=== PATIENT | female | born 1980 ===

== ENCOUNTER 2017-04-16 20:39 | Inpatient (IN) | payer OTHER ==
[~2017-04-16] VITALS: Ht 175.3 cm; Wt 104.7 kg
[2017-04-17] VITALS (10 sets, daily range): BP systolic 94–156; BP diastolic 68–86; PULSE 97–122; TEMP 36.4–37.1; O2SAT 95–100; BMI 29.6
[2017-04-17] MEDS ORDERED: SODIUM CHLORIDE 0.9% 1000ML 1,000 ML IV SCH (00:37)
[2017-04-17] MEDS ORDERED: INSULIN IV INFUSION PROTOCOL STA (00:37)
[2017-04-17 00:42] LABS: HEMATOCRIT 32.8 % (37-47); HEMOGLOBIN 11.9 g/dL (12.0-16.0); MEAN CELL VOLUME 84.1 fL (80-100); MEAN CORPUSCULAR HEMOGLOBIN 30.5 pg (25-34); MEAN PLATELET VOLUME 9.3 fL (7.4-10.4); PLATELET COUNT 300 K/uL (130-400); RED CELL DISTRIBUTION WIDTH CV 12.9 % (11.5-14.5); RED CELL DISTRIBUTION WIDTH SD 39.3 fL (36.4-46.3)
[2017-04-17] MEDS ORDERED: SEVERE STRESS LEVEL ONE (00:45)
[2017-04-17] MEDS ORDERED: DKA GOAL RANGE 150-250 mg/dl 1 EA ONE (00:45)
[2017-04-17] MEDS ORDERED: DC ALL PREVIOUSLY ORDERED DIABETES MEDS ONE (00:45)
[2017-04-17 00:47] LABS: MEAN CORPUSCULAR HGB CONC 36.3 g/dl (32-36)
[2017-04-17] MEDS ORDERED: MoRPHine SULFATE 2 MG/ML CARP IV PRN (01:00)
[2017-04-17] MEDS ORDERED: ICU PROTOCOL FOR HYPERGLYCEMIA PRN (01:00)
[2017-04-17 01:07] LABS: BLOOD UREA NITROGEN 15 mg/dl (7-18); CALCIUM 9.4 mg/dl (8.5-10.1); CARBON DIOXIDE 20 mmol/L (21-32); CREATININE 0.97 mg/dl (0.60-1.20); GLUCOSE 253 mg/dl (70-99); POTASSIUM 2.7 mmol/L (3.5-5.1); SODIUM 129 mmol/L (136-145)
[2017-04-17] MEDS ORDERED: POTASSIUM CHLR 20 MEQ / WTR 20 MEQ in PREMIXED WATER 100 ML IV STA (01:09)
[2017-04-17] MEDS ORDERED: POTASSIUM CHLORIDE 20 MEQ TABCR PO STA ×2 (01:09→09:47)
[2017-04-17 01:12] LABS: PHOSPHORUS 1.3 mg/dl (2.5-4.9)
[2017-04-17] MEDS ORDERED: POTASSIUM PHOS 3 MMOL/1 ML INFUSION IV STA (01:13)
--- NOTE | 2017-04-17 01:13 | History and Physical ---
History & Physical Date & Time of Service: Apr 17, 2017 at 01:11 Chief Complaint: DKA Primary Care Physician: Devin Tyler History of Present Illness Source: patient The patient is a 36 year old female with a past medical history of diabetes, presents as a direct admit from [place] with DKA. The patient has recently changed endocrinologists to a doctor in [place], and states that her Lantus ran out 2-3 days ago since which time she has not take it, and has solely used Humalog as coverage. She is normally on 30 units of lantus BID with sliding scale coverage. She thinks she was told she has a combination of type 1 and 2 diabetes as she was going to be started on metformin in the near future. She states that she was having progressive nausea and abdominal pain with chills. She denies any fevers, chest pain, shortness of breath, diarrhea, constipation. She also experienced a fall on her right hip. X-ray performed on her hip and femur reveal no acute fractures. Social History Smoking Status: Former Smoker Allergies Coded Allergies: Lisinopril (Verified Allergy, Unknown, hives, 04/17/17) Sulfamethoxazole w/Trimethoprim (Verified Allergy, Unknown, hives, 04/17/17) Home Medications Scheduled Magnesium Oxide (Mag-Ox), 1 TAB PO DAILY Pantoprazole (Protonix), 40 MG PO BID Venlafaxine Hcl (Effexor), 100 MG PO DAILY Scheduled PRN Albuterol Hfa (Ventolin Hfa), 2-4 PUFFS INH Q6H PRN for Shortness of Breath Alprazolam (Xanax), 0.5 MG PO HS PRN for Anxiety Alprazolam (Xanax), 0.25 MG PO DAILY PRN for Anxiety Cyclobenzaprine Hcl (Flexeril), 10 MG PO TID PRN for Muscle Spasms Prochlorperazine Maleate (Compazine), 10 MG PO BID PRN for Nausea or Vomiting Review of Systems Constitutional: + chills, + weakness, + fatigue, No fever, No sweats, No weight loss Respiratory: No cough, No sputum, No shortness of breath Cardiovascular: No chest pain, No palpitations Abdomen: + pain, + nausea, No vomiting, No diarrhea, No constipation Musculoskeletal: + problem reported (right hip pain) Genitourinary - Female: + urinary frequency, No dysuria Endocrine: + fatigue, + excessive thirst, + excessive urination Physical Exam Vital Signs Date Time Temp Pulse Resp B/P (MAP) Pulse Ox O2 Delivery O2 Flow Rate FiO2 04/17/17 00:05 36.6 112 18 94/68 100 Room Air General Appearance: WD/WN, no apparent distress Head: normocephalic, atraumatic Eyes: normal inspection, sclerae normal Neck: supple, no carotid bruits Respiratory/Chest: chest non-tender, lungs clear, normal breath sounds Cardiovascular: no JVD, no murmur, + tachycardia Abdomen/GI: normal bowel sounds, non tender, soft Extremities/Musculoskelatal: no calf tenderness, no pedal edema, + pertinent finding (Tenderness over right hip to palpation) Neurologic/Psych: alert, normal mood/affect, oriented x 3 Diagnostics Laboratory Results Results Past 24 Hours Test 04/17/17 00:29 04/17/17 00:33 Range/Units Venous Blood pH 7.36 7.36-7.41 Venous Blood Partial Pressure CO2 35 38.0-50.0 mmHg Venous Blood Partial Pressure O2 25 mmHg Venous Blood HCO3 19 mmol/L Venous Blood Oxygen Saturation < 60.0 % Venous Blood Base Excess -5.9 mEq/L White Blood Count 19.90 4.8-10.8 K/uL Red Blood Count 3.90 4.2-5.4 M/uL Hemoglobin 11.9 12.0-16.0 g/dL Hematocrit 32.8 37-47 % Mean Corpuscular Volume 84.1 80-100 fL Mean Corpuscular Hemoglobin 30.5 25-34 pg Mean Corpuscular Hemoglobin Concent 36.3 32-36 g/dl RDW Standard Deviation 39.3 36.4-46.3 fL RDW Coefficient of Variation 12.9 11.5-14.5 % Platelet Count 300 130-400 K/uL Mean Platelet Volume 9.3 7.4-10.4 fL Sodium Level 129 136-145 mmol/L Potassium Level 2.7 3.5-5.1 mmol/L Chloride Level 100 98-107 mmol/L Carbon Dioxide Level 20 21-32 mmol/L Anion Gap 9.0 3-11 mmol/L Blood Urea Nitrogen 15 7-18 mg/dl Creatinine 0.97 0.60-1.20 mg/dl Estimated GFR () 87.7 Estimated GFR (Non- 75.7 BUN/Creatinine Ratio 15.7 10-20 Random Glucose 253 70-99 mg/dl Calcium Level 9.4 8.5-10.1 mg/dl Magnesium Level 1.7 1.8-2.4 mg/dl Human Chorionic Gonadotropin, Qual NEG NEG Microbiology Results 04/17/17 MRSA DNA Surveillance Screen, Received Pending Impression Assessment and Plan Patient is a 36 year old female with a past medical history of Diabetes and Fibromyalgia that presents with DKA after not taking her Lantus for the last 2- 3 days 1) Diabetic Ketoacidosis - NS 125mls/hr - Insulin drip continued form [place], currently 12.6 mls/hr (initially 10 mls/hr on transfer) - At this time Anion Gap is closed (9) but still requiring increasing amounts of insulin and sugars still uncontrolled so continue the drip at this time - HbA1c pending - Beta-Hydroxybutyric Acid 20.70 2) Hypokalemia - K+ 2.7 - 20 mEq KCl IV - 30mmol KPhos 3) Hypophosphatemia - Phos 1.3 - KPhos 30 mmol 4) Hypomagnesemia - Mg 1.7 - 1gm Magnesium IV 5) Right Hip Pain - Xrays from [place] show no acute fractures - Toradol 15mg IV q6h 6) GERD - Protonix 40mg PO BID 7) DVT Ppx - Heparin 5,000 units q8h 8) Code Status - Full Resuscitation Resident Physician Supervision Note: Pt evaluated independently. I discussed the case with the resident and agree with the findings and plan as documented in the note. Any exceptions or clarifications are listed here: 36 y/o F Hx DM 1 - has not complied with insulin in 3 days - developed abdominal pain and nausea - initially evaluated at [place] - diagnosed with DKA and transferred for additional management. Her gap had essentially closed on arrival to [facility]. OE AAO x 3 S1,2 R CTAB NT, ND No CCE P: Admitted with DKA protocol HypoK, HypoMg, Hypophos - replaced - electrolytes will be trended Q4 Documented By: Daniel Rolle Level of Care Telemetry Advanced Directives Existing Living Will: No Existing Power of Distiller: No Resuscitation Status FULL RESUSCITATION VTE Prophylaxis VTE Risk Assessment Done? Y/N: Yes Risk Level: Low Given or contraindicated: Unfractionated heparin SQ Resident Tracking Resident Involvement: Resident Care Provided Care Provided: Adult Hospital Medicine
[2017-04-17] MEDS ORDERED: PATIENT'S ALLERGY INFO NEEDS ENTERED SCH (01:15)
[2017-04-17] MEDS ORDERED: PROC1TAB5 PO (01:25)
[2017-04-17] MEDS ORDERED: VNTHFA/IN INH (01:25)
[2017-04-17] MEDS ORDERED: PANT40TA PO (01:25)
[2017-04-17] MEDS ORDERED: MAGN400T5 PO (01:25)
[2017-04-17] MEDS ORDERED: EFF75 PO (01:25)
[2017-04-17] MEDS ORDERED: ALPR-411 PO ×2 (01:25)
[2017-04-17] MEDS ORDERED: CYCL10TA6 PO (01:25)
[2017-04-17] MEDS ORDERED: INSULIN REGULAR 250 UNITS in SODIUM CHLORIDE 0.9% 250ML 250 ML IV SCH (01:30)
[2017-04-17] MEDS ORDERED: GLUCOSE 40% GEL 15 GM TUBE PO PRN (01:30)
[2017-04-17] MEDS ORDERED: GLUCAGON FOR INJ 1 MG VIAL SQ PRN (01:30)
[2017-04-17] MEDS ORDERED: POTASSIUM PHOSPHATE INJ 30 MMOL in SODIUM CHLORIDE 0.9% 500ML 500 ML IV ONE (01:30)
[2017-04-17] MEDS ORDERED: GLUCOSE 10 TABS/TUBE PO PRN (01:30)
[2017-04-17] MEDS ORDERED: DEXTROSE 50% 50 ML SYR IV PRN (01:30)
[2017-04-17] MEDS: MAGNESIUM SULFATE 1GM / D5W 1 GM in PREMIXED IN D5W 100 ML IV SCH ×2 (01:42→02:53)
[2017-04-17 04:31] LABS: CALCIUM 8.9 mg/dl (8.5-10.1); CREATININE 0.86 mg/dl (0.60-1.20); PHOSPHORUS 1.9 mg/dl (2.5-4.9)
[2017-04-17] MEDS: KETOROLAC TROMETHAMINE 15 MG/ML VIAL IV PRN ×2 (04:57→10:09)
--- NOTE | 2017-04-17 05:09 | Critical Care Consultation ---
Critical Care Consultation Date of Consultation: Apr 17, 2017. Attending Physician: Dr. Daniel Rolle Reason for Consultation: DKA History of Present Illness Elba Isaac is a 36 yo female who presented to [facility] after several days of abd pain, nausea and chills after not taking her routine Lantus because she was out. She had attempted to supplement the shortage with Humalin 500 alone. Her daily regimen consists of 30u BID of Lantus an SSI. She states she has recently changed endocrinologists to a provider in [place]. They are planning to add Metformin as she may be a type1/type 2 diabetic. Her initial glucose was 639, anion gap of 19.4, ABG pH of 7.37. Dr. Morales received a phone call regarding pt and she was accepted for transfer to the ICU. Upon arrival in the ICU, pt was noted to be have a glucose of 253 on 10.5u of Insulin per hour. DKA protocol was ordered and pt was initially admitted to ICU pending repeat labs. Labs resulted with sodium 129, K 2.7, Phos 1.3, Mg 1.7 , and Beta hydroxybutyric Acid 20.79. Pt was ordered oral and IV electrolyte replacements. Pt was transferred to telemetry status. Venous blood gas was 7.36 with CO2 35. Pt states she was admitted in [place] recently for same diagnosis. Pt does have a significant medical history including GERD, Anxiety, Depression, DM, fatty liver, fibromyalgia, HTN, hypothyroidism, and neuropathy. The patient denies weight loss, fever, dizziness, headache, muscle weakness, change in vision, sore throat, chest pain, palpitations, awareness of tachyarrhythmias, leg swelling, shortness of breath, cough, nausea, vomiting, bloody stools, diarrhea, constipation, other changes in urine or bowel habits. She states her abd pain is a 6/10 and same for hip, she states 7/10 is a level at which she would say her pain is unbearable. Past Medical/Surgical History Medical Problems: DKA, type 2 Abdominal pain Acid reflux Anxiety Depression Diabetes mellitus type 2 Fatty liver Fibromyalgia Hypertension Hypothyroidism Neuropathy Pneumonia Surgical history: EGD Family History Grandparents: DM & HTN CAD: Mother and Grandparents Dyslipidemia: Mother and Grandparents Social History Smoking Status: Former Smoker (Quit during last hospitalization) Alcohol Use: no longer drinks, x 2 yrs Housing Status: lives with family Occupation Status: disabled Allergies Coded Allergies: Lisinopril (Verified Allergy, Unknown, hives, 04/17/17) Sulfamethoxazole w/Trimethoprim (Verified Allergy, Unknown, hives, 04/17/17) Home Medications Scheduled Magnesium Oxide (Mag-Ox), 1 TAB PO DAILY Pantoprazole (Protonix), 40 MG PO BID Venlafaxine Hcl (Effexor), 100 MG PO DAILY Scheduled PRN Albuterol Hfa (Ventolin Hfa), 2-4 PUFFS INH Q6H PRN for Shortness of Breath Alprazolam (Xanax), 0.5 MG PO HS PRN for Anxiety Alprazolam (Xanax), 0.25 MG PO DAILY PRN for Anxiety Cyclobenzaprine Hcl (Flexeril), 10 MG PO TID PRN for Muscle Spasms Prochlorperazine Maleate (Compazine), 10 MG PO BID PRN for Nausea or Vomiting Current Inpatient Medications Current Inpatient Medications Medications (Trade) Dose Ordered Sig/Tosha Route Start Time Stop Time Status Last Admin Dose Admin Insulin Aspart (novoLOG ASPART) SLIDING SCALE PCHS SC 04/17/17 08:00 05/17/17 07:59 Sodium Chloride 1,000 ml @ 125 mls/hr Q8H IV 04/17/17 00:37 05/17/17 00:36 04/17/17 01:45 125 MLS/HR Acetaminophen (Tylenol Tab) 650 mg Q4H PRN PO 04/17/17 01:00 05/17/17 00:59 Miscellaneous Information (Icu Protocol For Hyperglycemia) 1 ea PRN PRN N/A 04/17/17 01:00 04/19/17 00:59 Potassium Phosphate 30 mmol/ Sodium Chloride 510 ml @ 100 mls/hr ONE ONCE IV 04/17/17 01:30 04/17/17 06:35 04/17/17 01:57 100 MLS/HR Insulin Human Regular 250 units/ Sodium Chloride 252.5 ml @ 0 mls/hr Q24H IV 04/17/17 01:30 05/17/17 01:29 04/17/17 01:44 12.6 MLS/HR Glucose (Glucose 40% Gel) UD PRN PO 04/17/17 01:30 05/17/17 01:29 Glucose (Glucose Chew Tab) 1 tabs UD PRN PO 04/17/17 01:30 05/17/17 01:29 Dextrose (Dextrose 50% 50ML Syringe) 50 ml UD PRN IV 04/17/17 01:30 05/17/17 01:29 Glucagon (Glucagon Inj) 1 mg UD PRN SQ 04/17/17 01:30 05/17/17 01:29 Heparin Sodium (Porcine) (Heparin Sq 5000 Unit/0.5ml) 5,000 unit Q8 SQ 04/17/17 06:00 05/17/17 05:59 UNV Ketorolac Tromethamine (Toradol Inj) 15 mg Q6H PRN IV 04/17/17 02:45 04/22/17 02:44 Pantoprazole Sodium (Protonix Tab) 40 mg BID PO 04/17/17 09:00 05/17/17 08:59 UNV Venlafaxine HCl (effeXOR TAB) 100 mg DAILY PO 04/17/17 09:00 05/17/17 08:59 UNV Review of Systems 12 systems reviewed and negative other than previously mentioned in the HPI. Physical Exam Date Time Temp Pulse Resp B/P (MAP) Pulse Ox O2 Delivery O2 Flow Rate FiO2 04/17/17 02:00 110 20 139/77 (97) 100 Room Air 04/17/17 00:05 36.6 112 18 94/68 100 Room Air Vital Signs - as noted Laboratory Data - as noted Physical Exam: General - NAD Eyes - PERRL, EOMI No icterus, gaze conjugate ENT - Mucosa moist, no lesions or candidiasis Neck - Supple, trachea midline, no masses or lymphadenopathy, no JVD or bruits Lungs - No paradoxical chest wall movement, clear to auscultation bilaterally, no wheezes, rales, or rhonchi Heart - Sinus Tachycardia on monitor, No murmur, rubs, clicks, or gallops appreciated Abdomen - normoactive BS present, no bruits noted, tympanic to percussion, soft , nontender, nondistended, no organomegaly Extremities - No edema, pedal pulses intact, reproducible R Hip pain on palpation Neuro - AxO X 4 Strength extremities equal and appropriate bilaterally Reflexes: normal and equal CN:PERRL, EOMI, no facial asymmetry, uvula/tongue midline Laboratory Results Last 24 Hours Test 04/17/17 00:29 04/17/17 00:33 04/17/17 01:06 04/17/17 02:14 Venous Blood pH 7.36 Venous Blood Partial Pressure CO2 35 mmHg Venous Blood Partial Pressure O2 25 mmHg Venous Blood HCO3 19 mmol/L Venous Blood Oxygen Saturation < 60.0 % Venous Blood Base Excess -5.9 mEq/L White Blood Count 19.90 K/uL Red Blood Count 3.90 M/uL Hemoglobin 11.9 g/dL Hematocrit 32.8 % Mean Corpuscular Volume 84.1 fL Mean Corpuscular Hemoglobin 30.5 pg Mean Corpuscular Hemoglobin Concent 36.3 g/dl RDW Standard Deviation 39.3 fL RDW Coefficient of Variation 12.9 % Platelet Count 300 K/uL Mean Platelet Volume 9.3 fL Sodium Level 129 mmol/L Potassium Level 2.7 mmol/L Chloride Level 100 mmol/L Carbon Dioxide Level 20 mmol/L Anion Gap 9.0 mmol/L Blood Urea Nitrogen 15 mg/dl Creatinine 0.97 mg/dl Estimated GFR () 87.7 Estimated GFR (Non- 75.7 BUN/Creatinine Ratio 15.7 Random Glucose 253 mg/dl Calcium Level 9.4 mg/dl Phosphorus Level 1.3 mg/dl Magnesium Level 1.7 mg/dl Beta-Hydroxybutyric Acid 20.79 mg/dL Human Chorionic Gonadotropin, Qual NEG Bedside Glucose 293 mg/dl 260 mg/dl Test 04/17/17 03:07 04/17/17 04:00 04/17/17 04:01 Bedside Glucose 231 mg/dl 200 mg/dl Venous Blood pH 7.40 Sodium Level 130 mmol/L Potassium Level 3.0 mmol/L Chloride Level 102 mmol/L Carbon Dioxide Level 18 mmol/L Anion Gap 10.0 mmol/L Blood Urea Nitrogen 13 mg/dl Creatinine 0.86 mg/dl Est Creatinine Clear Calc Drug Dose 109.6 ml/min Estimated GFR () 101.4 Estimated GFR (Non- 87.5 BUN/Creatinine Ratio 15.0 Random Glucose 191 mg/dl Calcium Level 8.9 mg/dl Phosphorus Level 1.9 mg/dl Magnesium Level 2.2 mg/dl Diagnostic Results Imaging done at [facility] of Right hip did not demonstrate bony abnormality Assessment & Plan PLAN: DKA: * Continue fluid judiciously per protocol, NSS @ 125mL/hr now * Trend VBG, PRP, Electrolytes per DKA protocol * Insulin Drip continued at 10.5 at time of admission, increased to 12.6 * Anion Gap closed * A1C ordered/pending * Sports Marketer to be consulted Electrolyte Imbalances: * Hypokalemia/hypophosphatemia * KPhos 30mmol IV ordered * 20meq of KCl PO ordered * Repeat labs q 4h * Hypomagnesemia * 2g IV Mg ordered * Repeat lab q4h Right Hip Pain: * Per [facility] records, no notable frax of R hip * Pain management per hospital team Acid Reflux: * Protonix 40mg PO BID DVT Prophylaxis in place: Heparin 5,000u TID CCT: 0 Minutes; Level 5 inpatient billing. This time is exclusive of all separately billable procedures. Thank you for involving us in the care of this patient. Please refer to Dr. Matias Morales's addendum for further recommendations. I have personally evaluated and examined this patient. I agree with assessment and plan of Ollie Gilman PA-C. Discussed patient with provider from [facility]. Patient was in DKA requiring insulin infusion, they were unable to admit the patient at their facility transferred here for further medical management. No obvious source of infection noted at this time, most likely cause of DKA's noncompliance with her newly prescribed insulin regimen. Per [facility] report patient has a long- standing history of noncompliance with her diabetic medication, and reported multiple visits for DKA in the past. Per report patient likely had moderate DKA at [facility], bicarbonate is reported to be 10. Upon her arrival here the patient has very mild DKA, her pH is not acidotic her bicarbonate level is increasing in the patient's anion gap is effectively closed. It is noted that she is hypokalemic this is secondary to insulin administration and we have begun aggressive potassium repletion. Patient is currently a candidate for transition to subcutaneous insulin as well as downgrade out of the ICU.
[2017-04-17 06:25] LABS: HEMOGLOBIN A1C 9.1 % (4.5-5.6)
[2017-04-17] MEDS ORDERED: DC IV INSULIN INFUSION ONE (07:45)
[2017-04-17] MEDS: INSULIN ASPART 100 UNITS/ML 3 ML PEN SC SCH ×2 (08:00→12:34)
[2017-04-17] MEDS: ACETAMINOPHEN 325 MG TAB PO PRN ×2 (08:08→23:50)
[2017-04-17 08:43] LABS: INR 0.9 (0.9-1.1)
[2017-04-17] MEDS ORDERED: INSULIN GLARGINE SOLOSTAR 100 UNITS/ML 3 ML PEN SC SCH (09:00)
--- NOTE | 2017-04-17 09:06 | Family Medicine Progress Note ---
Progress Note Date of Service Apr 17, 2017. Subjective Pt evaluation today including: conversation w/ patient, physical exam, chart review, lab review, review of studies, review of inpatient medication list Pain: pain at Rt hip PO Intake: npo Voiding: no voiding problems No acute events. patient remains on insulin drip with plan to transition to Insulin SS today. She denies fevers/chills, abdominal pain, N/V. She does report rt hip pain which persists from Fall prior to arrival Constitutional: No fever, No chills, No weakness Respiratory: No cough, No wheezing, No shortness of breath Cardiovascular: No chest pain, No edema, No palpitations Abdomen: No pain, No nausea, No vomiting, No diarrhea, No constipation Musculoskeletal: No swelling, No calf pain Skin: No rash, No itch Medications Current Inpatient Medications Medications (Trade) Dose Ordered Sig/Tosha Route Start Time Stop Time Status Last Admin Dose Admin Acetaminophen (Tylenol Tab) 650 mg Q4H PRN PO 04/17/17 01:00 05/17/17 00:59 04/17/17 08:08 650 MG Miscellaneous Information (Icu Protocol For Hyperglycemia) 1 ea PRN PRN N/A 04/17/17 01:00 04/19/17 00:59 Glucose (Glucose 40% Gel) UD PRN PO 04/17/17 01:30 05/17/17 01:29 Glucose (Glucose Chew Tab) 1 tabs UD PRN PO 04/17/17 01:30 05/17/17 01:29 Dextrose (Dextrose 50% 50ML Syringe) 50 ml UD PRN IV 04/17/17 01:30 05/17/17 01:29 Glucagon (Glucagon Inj) 1 mg UD PRN SQ 04/17/17 01:30 05/17/17 01:29 Heparin Sodium (Porcine) (Heparin Sq 5000 Unit/0.5ml) 5,000 unit Q8 SQ 04/17/17 12:00 05/17/17 11:59 Ketorolac Tromethamine (Toradol Inj) 15 mg Q6H PRN IV 04/17/17 02:45 04/22/17 02:44 04/17/17 10:09 15 MG Pantoprazole Sodium (Protonix Tab) 40 mg BID PO 04/17/17 09:00 05/17/17 08:59 04/17/17 09:22 40 MG Venlafaxine HCl (effeXOR TAB) 100 mg DAILY PO 04/17/17 09:00 05/17/17 08:59 04/17/17 09:22 100 MG Insulin Glargine (Lantus Solostar Pen) 30 units BID SC 04/17/17 09:00 05/17/17 08:59 04/17/17 09:14 30 UNITS Insulin Aspart (novoLOG ASPART) SLIDING SCALE G... ACHS SC 04/17/17 11:00 05/17/17 10:59 Potassium Chloride (Klor-Con Tab) 20 meq BID PO 04/17/17 21:00 05/17/17 20:59 Potassium Chloride/Sodium Chloride 1,000 ml @ 125 mls/hr Q8H IV 04/17/17 10:30 05/17/17 10:29 Objective Vital Signs Date Time Temp Pulse Resp B/P (MAP) Pulse Ox O2 Delivery O2 Flow Rate FiO2 04/17/17 06:00 112 20 100 Room Air 04/17/17 04:00 100 Room Air 04/17/17 04:00 37.1 104 14 115/79 (91) 100 Room Air 04/17/17 02:00 110 20 139/77 (97) 100 Room Air 04/17/17 00:05 36.6 112 18 94/68 100 Room Air Physical Exam General Appearance: WD/WN, no apparent distress Eyes: PERRL, EOMI Neck: supple, no adenopathy, trachea midline Respiratory/Chest: lungs clear, normal breath sounds, no respiratory distress Cardiovascular: regular rate, rhythm, no edema, no murmur Abdomen: normal bowel sounds, non tender, soft Extremities: no pedal edema, no calf tenderness, + pertinent finding (Rt hip tenderness to palpation, no local ecchymoses) Neurologic/Psychiatric: alert, normal mood/affect Laboratory Results Results Past 24 Hours Test 04/17/17 00:29 04/17/17 00:33 04/17/17 01:06 04/17/17 02:14 Range/Units Venous Blood pH 7.36 7.36-7.41 Venous Blood Partial Pressure CO2 35 38.0-50.0 mmHg Venous Blood Partial Pressure O2 25 mmHg Venous Blood HCO3 19 mmol/L Venous Blood Oxygen Saturation < 60.0 % Venous Blood Base Excess -5.9 mEq/L White Blood Count 19.90 4.8-10.8 K/uL Red Blood Count 3.90 4.2-5.4 M/uL Hemoglobin 11.9 12.0-16.0 g/dL Hematocrit 32.8 37-47 % Mean Corpuscular Volume 84.1 80-100 fL Mean Corpuscular Hemoglobin 30.5 25-34 pg Mean Corpuscular Hemoglobin Concent 36.3 32-36 g/dl RDW Standard Deviation 39.3 36.4-46.3 fL RDW Coefficient of Variation 12.9 11.5-14.5 % Platelet Count 300 130-400 K/uL Mean Platelet Volume 9.3 7.4-10.4 fL Sodium Level 129 136-145 mmol/L Potassium Level 2.7 3.5-5.1 mmol/L Chloride Level 100 98-107 mmol/L Carbon Dioxide Level 20 21-32 mmol/L Anion Gap 9.0 3-11 mmol/L Blood Urea Nitrogen 15 7-18 mg/dl Creatinine 0.97 0.60-1.20 mg/dl Estimated GFR () 87.7 Estimated GFR (Non- 75.7 BUN/Creatinine Ratio 15.7 10-20 Random Glucose 253 70-99 mg/dl Estimated Average Glucose 214 mg/dl Hemoglobin A1c 9.1 4.5-5.6 % Calcium Level 9.4 8.5-10.1 mg/dl Phosphorus Level 1.3 2.5-4.9 mg/dl Magnesium Level 1.7 1.8-2.4 mg/dl Beta-Hydroxybutyric Acid 20.79 0.2-2.81 mg/dL Human Chorionic Gonadotropin, Qual NEG NEG Bedside Glucose 293 260 70-90 mg/dl Test 04/17/17 03:07 04/17/17 04:00 04/17/17 04:01 04/17/17 05:01 Range/Units Bedside Glucose 231 200 112 70-90 mg/dl Venous Blood pH 7.40 7.36-7.41 Sodium Level 130 136-145 mmol/L Potassium Level 3.0 3.5-5.1 mmol/L Chloride Level 102 98-107 mmol/L Carbon Dioxide Level 18 21-32 mmol/L Anion Gap 10.0 3-11 mmol/L Blood Urea Nitrogen 13 7-18 mg/dl Creatinine 0.86 0.60-1.20 mg/dl Est Creatinine Clear Calc Drug Dose 109.6 ml/min Estimated GFR () 101.4 Estimated GFR (Non- 87.5 BUN/Creatinine Ratio 15.0 10-20 Random Glucose 191 70-99 mg/dl Calcium Level 8.9 8.5-10.1 mg/dl Phosphorus Level 1.9 2.5-4.9 mg/dl Magnesium Level 2.2 1.8-2.4 mg/dl Test 04/17/17 05:53 04/17/17 07:11 04/17/17 07:58 04/17/17 08:25 Range/Units Bedside Glucose 169 169 127 70-90 mg/dl Prothrombin Time 9.6 9.0-12.0 SECONDS Prothromb Time International Ratio 0.9 0.9-1.1 Venous Blood pH 7.37 7.36-7.41 Sodium Level 132 136-145 mmol/L Potassium Level 3.1 3.5-5.1 mmol/L Chloride Level 103 98-107 mmol/L Carbon Dioxide Level 20 21-32 mmol/L Anion Gap 9.0 3-11 mmol/L Blood Urea Nitrogen 12 7-18 mg/dl Creatinine 0.81 0.60-1.20 mg/dl Est Creatinine Clear Calc Drug Dose 116.4 ml/min Estimated GFR () 109.1 Estimated GFR (Non- 94.1 BUN/Creatinine Ratio 14.3 10-20 Random Glucose 113 70-99 mg/dl Calcium Level 9.0 8.5-10.1 mg/dl Phosphorus Level 2.1 2.5-4.9 mg/dl Magnesium Level 1.8 1.8-2.4 mg/dl Chemistry Specimen Hemolysis Test 04/17/17 08:30 Range/Units Bedside Glucose 128 70-90 mg/dl Microbiology Results 04/17/17 MRSA DNA Surveillance Screen - Final, Complete Specimen Negative for MRSA by DNA Probe Assessment and Plan 36 yo F w/ h/o Diabetes , Fibromyalgia presenting in DKA secondary to lack of insulin administration for 2-3 days prior to arrival, Anion gap closed, Glucose significantly improved DKA: secondary to lack of insulin administration prior to arrival x 2-3 days Continue IV fluids F/u repeat PRP, Electrolytes per DKA protocol Transitioning from Insulin Drip to Insulin SS today Anion Gap has closed A1C 9.1 Diabetic Education Hypokalemia K 3.1 Add 20 meq K supplementation to IV Fluids Given 40 meq K PO, Start PO KCl 20 meq BID, Follow daily BMP's Hypophosphatemia Phos 2.1 plan to supplement Right Hip Pain: Per [facility] [place] records, no bony abnormality Pain control, currently on Toradol PRN GERD: Protonix 40mg PO BID DVT Prophylaxis in place: Heparin 5,000u TID Continued [facility] stay due to: multiple IV medications needed Discharge planning: home Resident Tracking Resident Involvement: Resident Care Provided Care Provided: Adult Hospital Medicine History Resident Physician Supervision Note: I was present with Dr. Ruff during the history and exam. I discussed the case with the resident and agree with the findings and plan as documented in the note. Any exceptions or clarifications are listed here. Pt resting in bed reporting persistent but improved fatigue and nausea since being on the insulin drip. Reports no vision changes/hearing changes, lightheadedness, abd pain, CP, SOB. General Appearance: mild distress, obese Eye Exam: bilateral eye PERRL, bilateral eye EOMI Respiratory: chest non-tender, lungs clear, normal breath sounds, no respiratory distress Cardiovascular: normal peripheral pulses, no murmur, tachycardia Gastrointestinal: normal bowel sounds, non tender, soft, no organomegaly Assessment/Plan 36 y/o female h/o DMII who has been off lantus for 3 days and presented to for DKA DKA - failed transition to SQ w/ increased AG - on DKA protocol and transitioned to lantus/aspart regimen. Monitor BMP. boat dock operator consult Hypokalemia - replete w/ KCl in IVF, as well as PO, trend BMP Right hip pain - traumatic injury with fall, potentially w/ overlying trochanteric bursitis - pain control Hypomagnesemia - repleted Hypophosphatemia - replete GERD - continue PPI therapy DVT PPX - Heparin
[2017-04-17 09:07] LABS: CREATININE 0.81 mg/dl (0.60-1.20); PHOSPHORUS 2.1 mg/dl (2.5-4.9); POTASSIUM 3.1 mmol/L (3.5-5.1)
[2017-04-17] MEDS: VENLAFAXINE HCL 50 MG TAB PO SCH (09:22)
[2017-04-17] MEDS: PANTOprazole SOD 40 MG TAB PO SCH ×2 (09:22→20:43)
[2017-04-17] MEDS ORDERED: NSS + 20MEQ KCL 1000ML 1,000 ML IV SCH (10:30)
[2017-04-17] MEDS ORDERED: INSULIN ASPART 100 UNITS/ML 3 ML PEN SC SCH (11:00)
[2017-04-17] MEDS ORDERED: ONDANSETRON INJ 2 MG/ML 2 ML VIAL IV PRN (11:15)
[2017-04-17] MEDS: HEPARIN SOD 5000 UNIT/0.5 ML CARP SQ SCH ×2 (12:45→20:48)
[2017-04-17 12:51] LABS: CREATININE 0.59 mg/dl (0.60-1.20)
[2017-04-17] MEDS: POTASSIUM CHLORIDE INJ 40 MEQ in SODIUM CHLORIDE 0.9% 1000ML 1,000 ML IV SCH (15:43)
[2017-04-17] MEDS: MoRPHine SULFATE 2 MG/ML CARP IV PRN ×2 (15:44→20:42)
[2017-04-17 20:04] LABS: CALCIUM 8.6 mg/dl (8.5-10.1); CREATININE 0.69 mg/dl (0.60-1.20)
[2017-04-17 20:05] LABS: POTASSIUM 3.6 mmol/L (3.5-5.1)
[2017-04-17] MEDS: POTASSIUM CHLORIDE 20 MEQ TABCR PO SCH (20:43)
[2017-04-17] MEDS ORDERED: POTASSIUM CHLORIDE 20 MEQ TABCR PO SCH (21:00)
[2017-04-17] MEDS: INSULIN REGULAR 250 UNITS in SODIUM CHLORIDE 0.9% 250ML 250 ML IV SCH (21:35)
[2017-04-18] VITALS (8 sets, daily range): BP systolic 128–156; BP diastolic 79–100; PULSE 91–117; TEMP 36.5–37.5; O2SAT 97–100; Ht 175.3 cm; Wt 104.7 kg
[2017-04-18] MEDS: POTASSIUM CHLORIDE INJ 40 MEQ in SODIUM CHLORIDE 0.9% 1000ML 1,000 ML IV SCH ×3 (00:31→16:39)
[2017-04-18] MEDS: MoRPHine SULFATE 2 MG/ML CARP IV PRN ×4 (00:52→20:28)
[2017-04-18] MEDS: CYCLOBENZAPRINE HCL 10 MG TAB PO PRN (03:54)
[2017-04-18] MEDS: ACETAMINOPHEN 325 MG TAB PO PRN (03:56)
[2017-04-18] MEDS: HEPARIN SOD 5000 UNIT/0.5 ML CARP SQ SCH ×3 (05:15→20:30)
[2017-04-18 07:21] LABS: BASO % 0.2 %; BASO ABS # 0.05 K/uL (0-0.2); EOS % 0.1 %; EOS ABS # 0.03 K/uL (0-0.5); HEMATOCRIT 28.2 % (37-47); HEMOGLOBIN 9.9 g/dL (12.0-16.0); IG# 0.08 K/uL (0.00-0.02); LYMPH % 2.2 %; LYMPH ABS # 0.45 K/uL (1.2-3.4); MEAN CORPUSCULAR HEMOGLOBIN 30.6 pg (25-34); MEAN PLATELET VOLUME 9.3 fL (7.4-10.4); MONO % 4.8 %; MONO ABS # 0.98 K/uL (0.11-0.59); NEUT % 92.3 %; NEUT ABS # 18.68 K/uL (1.4-6.5); PLATELET COUNT 246 K/uL (130-400); RED CELL DISTRIBUTION WIDTH CV 13.3 % (11.5-14.5); RED CELL DISTRIBUTION WIDTH SD 42.3 fL (36.4-46.3); WHITE BLOOD COUNT 20.27 K/uL (4.8-10.8)
[2017-04-18 07:25] LABS: MEAN CORPUSCULAR HGB CONC 35.1 g/dl (32-36)
[2017-04-18 07:39] LABS: CREATININE 0.66 mg/dl (0.60-1.20); POTASSIUM 4.1 mmol/L (3.5-5.1)
[2017-04-18] MEDS: POTASSIUM CHLORIDE 20 MEQ TABCR PO SCH ×2 (07:45→20:28)
[2017-04-18] MEDS: PANTOprazole SOD 40 MG TAB PO SCH ×2 (07:45→20:28)
[2017-04-18] MEDS: VENLAFAXINE HCL 50 MG TAB PO SCH (07:46)
[2017-04-18 07:48] LABS: PHOSPHORUS 1.6 mg/dl (2.5-4.9)
[2017-04-18] MEDS: INSULIN ASPART 100 UNITS/ML 3 ML PEN SC SCH ×4 (07:51→20:31)
--- NOTE | 2017-04-18 08:22 | Clinical Documentation Query ---
Dr. MG RC : CLINICAL DOCUMENTATION QUERY Patient is a 36 year old female admitted for evaluation and treatment of DKA. Serum sodium of 129 mmol/L on admission, lastly 127 mmol/L. She is being treated with IV saline and monitored with serial chemistries. As appropriate, consider documentation of hyponatremia as this impacts severity of illness, risk of mortality, and DRG assignment. Thank you. In your clinical opinion is this patient being managed for: ( ) (Pseudo) Hyponatremia ( ) Not Agree ( ) Other explanation of clinical findings (Please Explain) ( ) Unable to determine (Please Define) ( ) Need to Discuss The medical record reflects the following clinical findings, treatment, and risk factors. Clinical Indicators: As above Treatment: IV NSS, serial chemistries Risk Factors: DKA Please clarify and document your clinical opinion in the progress notes and discharge summary. Terms such as "probable", "suspected", "likely", "questionable", "possible", or "still to be ruled out" are acceptable. IF IN AGREEMENT, YOU MUST DOCUMENT ABOVE DIAGNOSTIC STATEMENT IN DAILY PROGRESS NOTES AND DISCHARGE SUMMARY. This document is not part of the patient's record. Thank You, Matias Hernandez, RN [phone]
--- NOTE | 2017-04-18 08:25 | Clinical Documentation Query ---
ORLIN Shipley : CLINICAL DOCUMENTATION QUERY Patient is a 36 year old female admitted for evaluation and treatment of DKA. Serum sodium of 129 mmol/L on admission, lastly 127 mmol/L. She is being treated with IV saline and monitored with serial chemistries. As appropriate, consider documentation of hyponatremia as this impacts severity of illness, risk of mortality, and DRG assignment. Thank you. In your clinical opinion is this patient being managed for: (X) (Pseudo) Hyponatremia ( ) Not Agree ( ) Other explanation of clinical findings (Please Explain) ( ) Unable to determine (Please Define) ( ) Need to Discuss The medical record reflects the following clinical findings, treatment, and risk factors. Clinical Indicators: As above Treatment: IV NSS, serial chemistries Risk Factors: DKA Please clarify and document your clinical opinion in the progress notes and discharge summary. Terms such as "probable", "suspected", "likely", "questionable", "possible", or "still to be ruled out" are acceptable. IF IN AGREEMENT, YOU MUST DOCUMENT ABOVE DIAGNOSTIC STATEMENT IN DAILY PROGRESS NOTES AND DISCHARGE SUMMARY. This document is not part of the patient's record. Thank You, Matias Hernandez, RN [phone]
[2017-04-18] MEDS ORDERED: POTASSIUM PHOS 3 MMOL/1 ML INFUSION IV STA (09:53)
--- NOTE | 2017-04-18 10:05 | Family Medicine Progress Note ---
Progress Note Date of Service Apr 18, 2017. Subjective Pt evaluation today including: conversation w/ patient, conversation w/ family , physical exam, chart review, lab review, review of studies, review of inpatient medication list Pain: perisitant Right Hip pain PO Intake: adequate Voiding: no voiding problems Patient now back on Insulin infusion. She continue to report persistent pain at right hip and now reporting "pain all over". Patient does have h/o fibromyalgia. She states that morphine provided minimal relief. She denies abdominal pain, n/v , diarrhea, fevers chills, chest pain, sob. Constitutional: No fever, No chills, No weakness Respiratory: No cough, No shortness of breath Cardiovascular: No chest pain, No edema, No palpitations Abdomen: No pain, No nausea, No vomiting, No diarrhea Musculoskeletal: + problem reported (RIght hip pain) Skin: No rash, No itch Medications Current Inpatient Medications Medications (Trade) Dose Ordered Sig/Tosha Route Start Time Stop Time Status Last Admin Dose Admin Acetaminophen (Tylenol Tab) 650 mg Q4H PRN PO 04/17/17 01:00 05/17/17 00:59 04/18/17 03:56 650 MG Miscellaneous Information (I[facility] Protocol For Hyperglycemia) 1 ea PRN PRN N/A 04/17/17 01:00 04/19/17 00:59 Glucose (Glucose 40% Gel) UD PRN PO 04/17/17 01:30 05/17/17 01:29 Glucose (Glucose Chew Tab) 1 tabs UD PRN PO 04/17/17 01:30 05/17/17 01:29 Dextrose (Dextrose 50% 50ML Syringe) 50 ml UD PRN IV 04/17/17 01:30 05/17/17 01:29 Glucagon (Glucagon Inj) 1 mg UD PRN SQ 04/17/17 01:30 05/17/17 01:29 Heparin Sodium (Porcine) (Heparin Sq 5000 Unit/0.5ml) 5,000 unit Q8 SQ 04/17/17 12:00 05/17/17 11:59 04/18/17 05:15 5,000 UNIT Ketorolac Tromethamine (Toradol Inj) 15 mg Q6H PRN IV 04/17/17 02:45 04/22/17 02:44 04/17/17 10:09 15 MG Pantoprazole Sodium (Protonix Tab) 40 mg BID PO 04/17/17 09:00 05/17/17 08:59 04/18/17 07:45 40 MG Venlafaxine HCl (effeXOR TAB) 100 mg DAILY PO 04/17/17 09:00 05/17/17 08:59 04/18/17 07:46 100 MG Insulin Glargine (Lantus Solostar Pen) 30 units BID SC 04/17/17 09:00 05/17/17 08:59 Future Hold 04/17/17 09:14 30 UNITS Ondansetron HCl (Zofran Inj) 4 mg Q4H PRN IV 04/17/17 11:15 05/17/17 11:14 04/17/17 11:26 4 MG Potassium Chloride 40 meq/ Sodium Chloride 1,020 ml @ 125 mls/hr Q8H10M IV 04/17/17 15:30 05/17/17 15:29 04/18/17 07:46 125 MLS/HR Potassium Chloride (Klor-Con Tab) 40 meq BID PO 04/17/17 21:00 05/17/17 20:59 04/18/17 07:45 40 MEQ Morphine Sulfate (MoRPHine SULFATE INJ) 2 mg Q4H PRN IV 04/17/17 14:45 05/01/17 14:44 04/18/17 05:13 2 MG Insulin Human Regular 250 units/ Sodium Chloride 252.5 ml @ 0 mls/hr Q24H IV 04/17/17 21:30 05/17/17 21:29 04/17/17 21:35 10.5 MLS/HR Insulin Aspart (novoLOG ASPART) SLIDING SCALE HS ND 04/18/17 08:00 05/18/17 07:59 04/18/17 12:04 4 UNITS Cyclobenzaprine HCl (Flexeril Tab) 10 mg DAILY PRN PO 04/18/17 03:30 05/18/17 03:29 04/18/17 03:54 10 MG Objective Vital Signs Date Time Temp Pulse Resp B/P (MAP) Pulse Ox O2 Delivery O2 Flow Rate FiO2 04/18/17 12:11 36.7 117 97 135/94 (108) 99 99.0 04/18/17 12:00 100 Room Air 04/18/17 08:00 100 Room Air 04/18/17 07:55 36.6 106 20 139/86 (103) 100 Room Air 04/18/17 04:11 36.5 96 20 128/79 (95) 100 Room Air 04/18/17 03:56 Room Air 04/17/17 23:50 Room Air 04/17/17 23:40 36.8 97 16 134/86 (102) 100 Room Air 04/17/17 20:15 Room Air 04/17/17 20:07 36.5 111 20 120/77 (91) 97 Room Air 04/17/17 16:25 36.4 105 16 140/81 (100) 100 Room Air 04/17/17 16:00 100 Room Air Physical Exam Notes: General Appearance: WD/WN, no apparent distress Eyes: PERRL, EOMI Neck: supple, no adenopathy, trachea midline Respiratory/Chest: lungs clear, normal breath sounds, no respiratory distress Cardiovascular: regular rate, rhythm, no edema, no murmur Abdomen: normal bowel sounds, non tender, soft Extremities: no pedal edema, no calf tenderness, + pertinent finding (Rt hip tenderness to palpation) Neurologic/Psychiatric: alert, normal mood/affect Laboratory Results Results Past 24 Hours Test 04/17/17 14:38 04/17/17 16:16 04/17/17 19:22 04/17/17 20:43 Range/Units Bedside Glucose 227 312 346 70-90 mg/dl Venous Blood pH 7.32 7.36-7.41 Sodium Level 127 136-145 mmol/L Potassium Level 3.6 3.5-5.1 mmol/L Chloride Level 99 98-107 mmol/L Carbon Dioxide Level 14 21-32 mmol/L Anion Gap 14.0 3-11 mmol/L Blood Urea Nitrogen 10 7-18 mg/dl Creatinine 0.69 0.60-1.20 mg/dl Est Creatinine Clear Calc Drug Dose 136.6 ml/min Estimated GFR () 130.7 Estimated GFR (Non- 112.8 BUN/Creatinine Ratio 13.7 10-20 Random Glucose 317 70-99 mg/dl Calcium Level 8.6 8.5-10.1 mg/dl Beta-Hydroxybutyric Acid 54.87 0.2-2.81 mg/dL Test 04/17/17 22:36 04/17/17 23:32 04/18/17 00:32 04/18/17 01:37 Range/Units Bedside Glucose 369 260 206 157 70-90 mg/dl Test 04/18/17 02:35 04/18/17 03:33 04/18/17 04:32 04/18/17 05:31 Range/Units Bedside Glucose 172 154 149 105 70-90 mg/dl Test 04/18/17 05:53 04/18/17 06:11 04/18/17 06:27 04/18/17 07:06 Range/Units Bedside Glucose 101 130 192 70-90 mg/dl White Blood Count 20.27 4.8-10.8 K/uL Red Blood Count 3.24 4.2-5.4 M/uL Hemoglobin 9.9 12.0-16.0 g/dL Hematocrit 28.2 37-47 % Mean Corpuscular Volume 87.0 80-100 fL Mean Corpuscular Hemoglobin 30.6 25-34 pg Mean Corpuscular Hemoglobin Concent 35.1 32-36 g/dl Platelet Count 246 130-400 K/uL Mean Platelet Volume 9.3 7.4-10.4 fL Neutrophils (%) (Auto) 92.3 % Lymphocytes (%) (Auto) 2.2 % Monocytes (%) (Auto) 4.8 % Eosinophils (%) (Auto) 0.1 % Basophils (%) (Auto) 0.2 % Neutrophils # (Auto) 18.68 1.4-6.5 K/uL Lymphocytes # (Auto) 0.45 1.2-3.4 K/uL Monocytes # (Auto) 0.98 0.11-0.59 K/uL Eosinophils # (Auto) 0.03 0-0.5 K/uL Basophils # (Auto) 0.05 0-0.2 K/uL RDW Standard Deviation 42.3 36.4-46.3 fL RDW Coefficient of Variation 13.3 11.5-14.5 % Immature Granulocyte % (Auto) 0.4 % Immature Granulocyte # (Auto) 0.08 0.00-0.02 K/uL Venous Blood pH 7.32 7.36-7.41 Sodium Level 128 136-145 mmol/L Potassium Level 4.1 3.5-5.1 mmol/L Chloride Level 102 98-107 mmol/L Carbon Dioxide Level 16 21-32 mmol/L Anion Gap 10.0 3-11 mmol/L Blood Urea Nitrogen 7 7-18 mg/dl Creatinine 0.66 0.60-1.20 mg/dl Est Creatinine Clear Calc Drug Dose 145.3 ml/min Estimated GFR () 132.6 Estimated GFR (Non- 114.4 BUN/Creatinine Ratio 11.1 10-20 Random Glucose 205 70-99 mg/dl Calcium Level 9.0 8.5-10.1 mg/dl Phosphorus Level 1.6 2.5-4.9 mg/dl Magnesium Level 1.4 1.8-2.4 mg/dl Test 04/18/17 07:27 04/18/17 08:22 04/18/17 09:20 04/18/17 10:28 Range/Units Bedside Glucose 224 200 178 208 70-90 mg/dl Test 04/18/17 11:25 Range/Units Bedside Glucose 194 70-90 mg/dl Assessment and Plan 36 yo F w/ h/o Diabetes , Fibromyalgia presenting in DKA secondary to lack of insulin administration for 2-3 days prior to arrival, Anion gap closed, Glucosing improcing DKA: secondary to lack of insulin administration prior to arrival x 2-3 days Continue IV fluids F/u repeat PRP, Electrolytes per DKA protocol Plan to Transition from Insulin Drip to Insulin SS today Anion Gap has closed at 10 A1C 9.1 Diabetic Education Hypokalemia resolved Follow daily BMP's Hypophosphatemia Phos 2.1-->1.8 supplement Right Hip Pain: suspected intertrochanteric bursitis secondary to fall Per [facility] records, no bony abnormality Pain control, currently on Toradol PRN GERD: Protonix 40mg PO BID DVT Prophylaxis in place: Heparin 5,000u TID Continued [facility] stay due to: multiple IV medications needed Discharge planning: home Resident Tracking Resident Involvement: Resident Care Provided Care Provided: Adult Hospital Medicine History Resident Physician Supervision Note: I was present with Dr. Ruff during the history and exam. I discussed the case with the resident and agree with the findings and plan as documented in the note. Any exceptions or clarifications are listed here. Pt reports resolution of fatigue, abdominal discomfort, nausea. Right hip pain persists, minimally improved. Pain predominantly with sitting and engaging of the right lower extremity, but tolerable at rest. Denies swelling, sensation changes, other joint pain. General Appearance: no apparent distress Respiratory: chest non-tender, lungs clear, normal breath sounds, no respiratory distress Cardiovascular: normal peripheral pulses, regular rate, rhythm, no edema, no murmur Gastrointestinal: normal bowel sounds, non tender, soft Extremities: other (TTP of the right hip predominantly over the greater trochanter with considerable limitation of exam 2/2 pt apprehension) Assessment/Plan 36 y/o female h/o DMII who has been off lantus for 3 days and presented to for DKA DKA - continue SQ insulin/lantus BID regimen. Trend FSBS. Monitor daily BMP. Encourage oral hydration. in service educator has visited. Right hip pain - traumatic injury with fall, potentially w/ overlying trochanteric bursitis - repeat XR right hip, pain control Hypophosphatemia - replete Hypokalemia - resolved GERD - continue PPI therapy DVT PPX - Heparin
[2017-04-18] MEDS ORDERED: POTASSIUM PHOSPHATE INJ 15 MMOL in SODIUM CHLORIDE 0.9% 250ML 250 ML IV STA (10:57)
--- NOTE | 2017-04-18 15:27 | DIAGNOSTIC IMAGING REPORT ---
R HIP UNILATERAL 2 VIEWS CLINICAL HISTORY: fall trauma COMPARISON: None. DISCUSSION: The bones and joint spaces appear intact. There is no evidence of fracture, dislocation or bony disease. There is no evidence for soft tissue swelling. IMPRESSION: Negative study. The above report was generated using voice recognition software. It may contain grammatical, syntax or spelling errors. Electronically signed by: Rambo Xiao M.D. 04/18/2017 3:26 PM Dictated Date/Time: 04/18/2017 3:25 PM
[2017-04-18] MEDS: INSULIN GLARGINE SOLOSTAR 100 UNITS/ML 3 ML PEN SC SCH ×2 (16:42→20:31)
[2017-04-18] MEDS: KETOROLAC TROMETHAMINE 15 MG/ML VIAL IV PRN ×2 (17:30→23:36)
[2017-04-18] MEDS ORDERED: SODIUM PHOSPHATE 3 MMOL/1 ML INFUSION IV STA (19:17)
[2017-04-18] MEDS ORDERED: SODIUM CHLORIDE 0.9% IV ONE (20:00)
[2017-04-18] MEDS ORDERED: SODIUM PHOSPHATE IV ONE (20:00)
[2017-04-19] VITALS (8 sets, daily range): BP systolic 115–138; BP diastolic 64–86; PULSE 73–114; TEMP 36.6–37.4; O2SAT 97–100
[2017-04-19] MEDS: POTASSIUM CHLORIDE INJ 40 MEQ in SODIUM CHLORIDE 0.9% 1000ML 1,000 ML IV SCH ×2 (00:04→08:46)
[2017-04-19] MEDS: MoRPHine SULFATE 2 MG/ML CARP IV PRN ×2 (02:38→16:43)
[2017-04-19] MEDS: CYCLOBENZAPRINE HCL 10 MG TAB PO PRN (05:03)
[2017-04-19] MEDS: HEPARIN SOD 5000 UNIT/0.5 ML CARP SQ SCH ×3 (05:08→21:28)
[2017-04-19 05:58] LABS: BASO % 0.1 %; BASO ABS # 0.02 K/uL (0-0.2); EOS % 0.4 %; EOS ABS # 0.07 K/uL (0-0.5); HEMATOCRIT 27.1 % (37-47); HEMOGLOBIN 9.2 g/dL (12.0-16.0); IG# 0.05 K/uL (0.00-0.02); LYMPH % 4.7 %; LYMPH ABS # 0.75 K/uL (1.2-3.4); MEAN CELL VOLUME 86.6 fL (80-100); MEAN CORPUSCULAR HEMOGLOBIN 29.4 pg (25-34); MEAN CORPUSCULAR HGB CONC 33.9 g/dl (32-36); MEAN PLATELET VOLUME 9.1 fL (7.4-10.4); MONO % 5.1 %; NEUT % 89.4 %; NEUT ABS # 14.11 K/uL (1.4-6.5); PLATELET COUNT 203 K/uL (130-400); RED CELL DISTRIBUTION WIDTH CV 12.9 % (11.5-14.5); RED CELL DISTRIBUTION WIDTH SD 41.1 fL (36.4-46.3)
[2017-04-19 06:34] LABS: BLOOD UREA NITROGEN 4 mg/dl (7-18); CALCIUM 8.4 mg/dl (8.5-10.1); CARBON DIOXIDE 23 mmol/L (21-32); CREATININE 0.42 mg/dl (0.60-1.20); GLUCOSE 183 mg/dl (70-99); POTASSIUM 3.6 mmol/L (3.5-5.1); SODIUM 126 mmol/L (136-145)
[2017-04-19] MEDS: KETOROLAC TROMETHAMINE 15 MG/ML VIAL IV PRN ×3 (06:35→20:13)
[2017-04-19 06:43] LABS: PHOSPHORUS 1.6 mg/dl (2.5-4.9)
[2017-04-19] MEDS: PANTOprazole SOD 40 MG TAB PO SCH ×2 (08:04→20:14)
[2017-04-19] MEDS: VENLAFAXINE HCL 50 MG TAB PO SCH (08:04)
[2017-04-19] MEDS: POTASSIUM CHLORIDE 20 MEQ TABCR PO SCH ×2 (08:04→20:15)
[2017-04-19] MEDS: INSULIN GLARGINE SOLOSTAR 100 UNITS/ML 3 ML PEN SC SCH ×2 (08:06→21:28)
[2017-04-19] MEDS: INSULIN ASPART 100 UNITS/ML 3 ML PEN SC SCH ×4 (08:10→21:27)
--- NOTE | 2017-04-19 10:00 | Family Medicine Progress Note ---
Progress Note Date of Service Apr 19, 2017. Subjective Currently still on insulin IV infusion. Peristent pain in her left hip, appears to be radiating around the front of her thigh. H/o fibromyalgia andn chronic pains since catching a child falling out of a building. Morphine not providing much relief. No fever, chills, cough, abdominal pain, nausea, vomiting, diarrhea , chest pain or sob. All Other Systems: Reviewed and Negative Medications Current Inpatient Medications Medications (Trade) Dose Ordered Sig/Tosha Route Start Time Stop Time Status Last Admin Dose Admin Acetaminophen (Tylenol Tab) 650 mg Q4H PRN PO 04/17/17 01:00 05/17/17 00:59 04/18/17 03:56 650 MG Glucose (Glucose 40% Gel) UD PRN PO 04/17/17 01:30 05/17/17 01:29 Glucose (Glucose Chew Tab) 1 tabs UD PRN PO 04/17/17 01:30 05/17/17 01:29 Dextrose (Dextrose 50% 50ML Syringe) 50 ml UD PRN IV 04/17/17 01:30 05/17/17 01:29 Glucagon (Glucagon Inj) 1 mg UD PRN SQ 04/17/17 01:30 05/17/17 01:29 Heparin Sodium (Porcine) (Heparin Sq 5000 Unit/0.5ml) 5,000 unit Q8 SQ 04/17/17 12:00 05/17/17 11:59 04/19/17 05:08 5,000 UNIT Ketorolac Tromethamine (Toradol Inj) 15 mg Q6H PRN IV 04/17/17 02:45 04/22/17 02:44 04/19/17 06:35 15 MG Pantoprazole Sodium (Protonix Tab) 40 mg BID PO 04/17/17 09:00 05/17/17 08:59 04/19/17 08:04 40 MG Venlafaxine HCl (effeXOR TAB) 100 mg DAILY PO 04/17/17 09:00 05/17/17 08:59 04/19/17 08:04 100 MG Ondansetron HCl (Zofran Inj) 4 mg Q4H PRN IV 04/17/17 11:15 05/17/17 11:14 04/17/17 11:26 4 MG Potassium Chloride 40 meq/ Sodium Chloride 1,020 ml @ 125 mls/hr Q8H10M IV 04/17/17 15:30 05/17/17 15:29 04/19/17 08:46 125 MLS/HR Potassium Chloride (Klor-Con Tab) 40 meq BID PO 04/17/17 21:00 05/17/17 20:59 04/19/17 08:04 40 MEQ Morphine Sulfate (MoRPHine SULFATE INJ) 2 mg Q4H PRN IV 04/17/17 14:45 05/01/17 14:44 04/19/17 02:38 2 MG Insulin Human Regular 250 units/ Sodium Chloride 252.5 ml @ 0 mls/hr Q24H IV 04/17/17 21:30 04/19/17 12:00 04/17/17 21:35 10.5 MLS/HR Cyclobenzaprine HCl (Flexeril Tab) 10 mg DAILY PRN PO 04/18/17 03:30 05/18/17 03:29 04/19/17 05:03 10 MG Insulin Glargine (Lantus Solostar Pen) 20 units BID SC 04/18/17 16:22 05/18/17 16:21 04/19/17 08:06 20 UNITS Insulin Aspart (novoLOG ASPART) SLIDING SCALE ACHS SC 04/18/17 21:00 05/18/17 20:59 04/19/17 08:10 7 UNITS Miscellaneous Information (Pending Order) 1 ea TODAY@1200 N/A 04/19/17 12:00 04/19/17 12:01 Magnesium Sulfate 2 gm/Prmx 100 ml @ 100 mls/hr NOW STAT IV 04/19/17 09:56 04/19/17 10:55 UNV Potassium/ Phosphorus/Sodium (Phospha 250 Neutral 155-852-130 Mg) 2 tab QID PO 04/19/17 13:00 05/19/17 12:59 UNV Objective Vital Signs Date Time Temp Pulse Resp B/P (MAP) Pulse Ox O2 Delivery O2 Flow Rate FiO2 04/19/17 08:07 36.6 74 18 128/64 (85) 99 04/19/17 08:00 100 Room Air 04/19/17 03:30 Room Air 04/19/17 03:19 37.1 105 20 130/77 (94) 100 Room Air 04/18/17 23:33 37.5 108 21 143/95 (111) 97 Room Air 04/18/17 23:30 Room Air 04/18/17 20:00 Room Air 04/18/17 19:42 36.9 91 18 149/100 (116) 99 Room Air 04/18/17 16:00 Room Air 04/18/17 15:37 37.0 113 19 156/95 (115) 98 Room Air 04/18/17 12:11 36.7 117 97 135/94 (108) 99 99.0 04/18/17 12:00 100 Room Air Physical Exam General Appearance: WD/WN, no apparent distress Respiratory/Chest: lungs clear, normal breath sounds, no respiratory distress, no accessory muscle use Cardiovascular: regular rate, rhythm, no murmur Abdomen: normal bowel sounds, non tender, soft Extremities: no calf tenderness, + pertinent finding (paraspinal right sided tenderness to palpation around L3, minor central spinal tenderness) Neurologic/Psychiatric: no motor/sensory deficits (grossly), alert Skin: normal color, warm/dry, no rash Laboratory Results 04/19/17 05:48 Red Blood Count 3.13, Mean Corpuscular Volume 86.6, Mean Corpuscular Hemoglobin 29.4, Mean Corpuscular Hemoglobin Concent 33.9, Mean Platelet Volume 9.1, Neutrophils (%) (Auto) 89.4, Lymphocytes (%) (Auto) 4.7, Monocytes (%) (Auto) 5.1, Eosinophils (%) (Auto) 0.4, Basophils (%) (Auto) 0.1, Neutrophils # (Auto) 14.11, Lymphocytes # (Auto) 0.75, Monocytes # (Auto) 0.80, Eosinophils # (Auto) 0.07, Basophils # (Auto) 0.02 04/19/17 05:48 Test 04/19/17 05:48 04/19/17 08:02 White Blood Count 15.80 K/uL (4.8-10.8) Red Blood Count 3.13 M/uL (4.2-5.4) Hemoglobin 9.2 g/dL (12.0-16.0) Hematocrit 27.1 % (37-47) Mean Corpuscular Volume 86.6 fL (80-100) Mean Corpuscular Hemoglobin 29.4 pg (25-34) Mean Corpuscular Hemoglobin Concent 33.9 g/dl (32-36) Platelet Count 203 K/uL (130-400) Mean Platelet Volume 9.1 fL (7.4-10.4) Neutrophils (%) (Auto) 89.4 % Lymphocytes (%) (Auto) 4.7 % Monocytes (%) (Auto) 5.1 % Eosinophils (%) (Auto) 0.4 % Basophils (%) (Auto) 0.1 % Neutrophils # (Auto) 14.11 K/uL (1.4-6.5) Lymphocytes # (Auto) 0.75 K/uL (1.2-3.4) Monocytes # (Auto) 0.80 K/uL (0.11-0.59) Eosinophils # (Auto) 0.07 K/uL (0-0.5) Basophils # (Auto) 0.02 K/uL (0-0.2) RDW Standard Deviation 41.1 fL (36.4-46.3) RDW Coefficient of Variation 12.9 % (11.5-14.5) Immature Granulocyte % (Auto) 0.3 % Immature Granulocyte # (Auto) 0.05 K/uL (0.00-0.02) Anion Gap 6.0 mmol/L (3-11) Est Creatinine Clear Calc Drug Dose 231.4 ml/min Estimated GFR () > 150.0 Estimated GFR (Non- 132.8 BUN/Creatinine Ratio 8.9 (10-20) Calcium Level 8.4 mg/dl (8.5-10.1) Phosphorus Level 1.6 mg/dl (2.5-4.9) Magnesium Level 1.0 mg/dl (1.8-2.4) Bedside Glucose 193 mg/dl (70-90) Assessment and Plan 36 yo F w/ h/o Diabetes , Fibromyalgia presenting in DKA secondary to lack of insulin administration for 2-3 days prior to arrival, Anion gap closed, Glucosing improcing DKA - secondary to lack of insulin administration prior to arrival x 2-3 days, admitting diagnosis although possibly more HHS as initial pH > 7.30 - Stop IV fluids Plan to Transition from Insulin Drip to Insulin SS today Anion Gap has closed at 6 A1C 9.1 Diabetic Education Hypokalemia - secondary to intracellular shift, resolved with supplementation KCl 40 meq PO BID Follow daily BMP's Hypophosphatemia - also some intracellular shift, asymptomatic from this Phos 2.1-->1.6 supplement K Phos 2 tablets QID Right Hip Pain suspected intertrochanteric bursitis secondary to fall vs. radiculopathy from back Per [facility] records, no bony abnormality Pain control, currently on Toradol PRN Given fibromyalgia and lack of pain relief from morphine will stop this GERD: Protonix 40mg PO BID VTE Prophylaxis - will stop heparin given young age, resolved dehydration and now mobile. - TEDs and SCD Code - Full Disposition - transfer to med/surg later today as long as transition successfully to SQ insulin. Aim discharge home tomorrow. Resident Tracking Resident Involvement: Resident Care Provided Care Provided: Adult Hospital Medicine History Resident Physician Supervision Note: I was present with Dr. Rodriguez during the history and exam. I discussed the case with the resident and agree with the findings and plan as documented in the note. Any exceptions or clarifications are listed here. Pt reports gradually improving acute on chronic pain of the right lower extremity s/p fall. Fatigue persists, though is mildly improved. Reports no fever, lightheadedness, CP/SOB, PALOMO. General Appearance: no apparent distress, obese Respiratory: chest non-tender, lungs clear, normal breath sounds, no respiratory distress Cardiovascular: normal peripheral pulses, regular rate, rhythm, no murmur Gastrointestinal: normal bowel sounds, non tender, soft, no organomegaly Assessment/Plan 36 y/o female h/o DMII who has been off lantus for 3 days and presented to for DKA DKA - Transition to SQ insulin/lantus BID regimen. Trend FSBS. Monitor daily BMP. Encourage oral hydration. software educator has visited. Right hip pain - traumatic injury with fall, potentially w/ overlying trochanteric bursitis - repeat XR right hip, pain control taper (as is largely at baseline) Hyponatremia - stable, trend BMP daily Hypophosphatemia - replete, follow Hypokalemia - resolved GERD - continue PPI therapy DVT PPX - Heparin
[2017-04-19] MEDS: MAGNESIUM SULFATE 1GM / D5W 1 GM in PREMIXED IN D5W 100 ML IV SCH ×2 (11:04→12:09)
[2017-04-19] MEDS: POT PHOSPHATE MONOBASIC W/ SOD TAB PO SCH ×3 (12:24→20:13)
[2017-04-19] MEDS: INSULIN REGULAR 250 UNITS in SODIUM CHLORIDE 0.9% 250ML 250 ML IV SCH (15:17)
[2017-04-19] MEDS: ACETAMINOPHEN 325 MG TAB PO PRN (21:28)
[2017-04-20] VITALS (7 sets, daily range): BP systolic 113–144; BP diastolic 71–86; PULSE 104–139; TEMP 36.7–37.4; O2SAT 95–100
[2017-04-20] MEDS: KETOROLAC TROMETHAMINE 15 MG/ML VIAL IV PRN ×4 (03:46→23:51)
[2017-04-20] MEDS: HEPARIN SOD 5000 UNIT/0.5 ML CARP SQ SCH ×3 (06:06→21:57)
[2017-04-20] MEDS: ACETAMINOPHEN 325 MG TAB PO PRN ×3 (06:08→22:01)
--- NOTE | 2017-04-20 07:34 | Family Medicine Progress Note ---
Progress Note Date of Service Apr 20, 2017. Subjective Pt evaluation today including: conversation w/ patient, physical exam, chart review, lab review, review of studies, review of inpatient medication list Feeling well today. Agrees opiates are not the best choice for her pain and does not like percocet etc.. as makes her feel nauseous. Ready to go home. Wishes to go back onto her mix insulin rather than long acting and sliding scale which she feels is to blame for her ending up in hospital this time around. All Other Systems: Reviewed and Negative Medications Current Inpatient Medications Medications (Trade) Dose Ordered Sig/Tosha Route Start Time Stop Time Status Last Admin Dose Admin Acetaminophen (Tylenol Tab) 650 mg Q4H PRN PO 04/17/17 01:00 05/17/17 00:59 04/20/17 06:08 650 MG Glucose (Glucose 40% Gel) UD PRN PO 04/17/17 01:30 05/17/17 01:29 Glucose (Glucose Chew Tab) 1 tabs UD PRN PO 04/17/17 01:30 05/17/17 01:29 Dextrose (Dextrose 50% 50ML Syringe) 50 ml UD PRN IV 04/17/17 01:30 05/17/17 01:29 Glucagon (Glucagon Inj) 1 mg UD PRN SQ 04/17/17 01:30 05/17/17 01:29 Heparin Sodium (Porcine) (Heparin Sq 5000 Unit/0.5ml) 5,000 unit Q8 SQ 04/17/17 12:00 05/17/17 11:59 04/20/17 06:06 5,000 UNIT Ketorolac Tromethamine (Toradol Inj) 15 mg Q6H PRN IV 04/17/17 02:45 04/22/17 02:44 04/20/17 03:46 15 MG Pantoprazole Sodium (Protonix Tab) 40 mg BID PO 04/17/17 09:00 05/17/17 08:59 04/19/17 20:14 40 MG Venlafaxine HCl (effeXOR TAB) 100 mg DAILY PO 04/17/17 09:00 05/17/17 08:59 04/19/17 08:04 100 MG Ondansetron HCl (Zofran Inj) 4 mg Q4H PRN IV 04/17/17 11:15 05/17/17 11:14 04/17/17 11:26 4 MG Potassium Chloride (Klor-Con Tab) 40 meq BID PO 04/17/17 21:00 05/17/17 20:59 04/19/17 20:15 40 MEQ Cyclobenzaprine HCl (Flexeril Tab) 10 mg DAILY PRN PO 04/18/17 03:30 05/18/17 03:29 04/19/17 05:03 10 MG Insulin Glargine (Lantus Solostar Pen) 20 units BID SC 04/18/17 16:22 05/18/17 16:21 04/19/17 21:28 20 UNITS Insulin Aspart (novoLOG ASPART) SLIDING SCALE ACHS SC 04/18/17 21:00 05/18/17 20:59 04/19/17 21:27 11 UNITS Potassium/ Phosphorus/Sodium (Phospha 250 Neutral 155-852-130 Mg) 2 tab QID PO 04/19/17 13:00 05/19/17 12:59 04/19/17 20:13 2 TAB Objective Vital Signs Date Time Temp Pulse Resp B/P (MAP) Pulse Ox O2 Delivery O2 Flow Rate FiO2 04/20/17 04:00 Room Air 04/20/17 03:55 36.7 110 18 135/85 (102) 100 Room Air 04/20/17 00:00 Room Air 04/19/17 22:58 36.7 106 18 115/75 (88) 99 Room Air 04/19/17 20:00 Room Air 04/19/17 19:39 37.3 110 16 124/85 (98) 97 Room Air 04/19/17 16:00 Room Air 04/19/17 15:19 37.4 114 16 136/86 (103) 99 Room Air 04/19/17 12:00 100 Room Air 04/19/17 11:54 36.8 73 18 138/81 (100) 98 04/19/17 08:07 36.6 74 18 128/64 (85) 99 04/19/17 08:00 100 Room Air Physical Exam General Appearance: no apparent distress, + obese Respiratory/Chest: chest non-tender, lungs clear, normal breath sounds, no respiratory distress, no accessory muscle use Cardiovascular: regular rate, rhythm, no edema, no murmur Abdomen: normal bowel sounds, non tender, soft Extremities: no pedal edema, normal capillary refill Neurologic/Psychiatric: no motor/sensory deficits (grossly normal), alert Skin: normal color, warm/dry, no rash Laboratory Results Test 04/19/17 20:26 04/20/17 06:43 Bedside Glucose 285 mg/dl (70-90) Assessment and Plan 36 yo F w/ h/o Diabetes , Fibromyalgia presenting in DKA secondary to lack of insulin administration for 2-3 days prior to arrival, Anion gap closed, Glucosing improcing DKA - secondary to lack of insulin administration prior to arrival x 2-3 days, admitting diagnosis although possibly more HHS as initial pH > 7.30 - Stop IV fluids Plan for home today and will switch to humalog 70/30 mix as per patient request Anion Gap has closed at 6 - pending labs for today A1C 9.1 Diabetic Education appreciated Hypokalemia - secondary to intracellular shift, resolved with supplementation KCl 40 meq PO BID - pending labs for today to determine home dose Follow daily BMP's Hypophosphatemia - also some intracellular shift, asymptomatic from this Phos 2.1-->1.6 - pending labs today to determine home supplementation and will need repeat check supplement K Phos 2 tablets QID Hypomagnesemia pending repeat labs today to determine home supplementation and retesting as outpatient Leukocytosis likely due to DKA as no overt signs of infection or fever, will need follow up as outpatient. Will get a repeat UA +/- culture while here Anemia repeat and manage as outpatient as unclear whether this is chronic. FOB obtain before discharge. Right Hip Pain suspected intertrochanteric bursitis secondary to fall vs. radiculopathy from back Per [facility] records, no bony abnormality Pain control, currently on Toradol PRN Given fibromyalgia and lack of pain relief from morphine will stop this GERD: Protonix 40mg PO BID VTE Prophylaxis - will stop heparin given young age, resolved dehydration and now mobile. - TEDs and SCD Code - Full Disposition - Aim discharge later today History Resident Physician Supervision Note: I was present with Dr. Rodriguez during the history and exam. I discussed the case with the resident and agree with the findings and plan as documented in the note. Any exceptions or clarifications are listed here. Pt reports continued improvement in both fatigue and acute on chronic pain following fall and is more comfortable to be up and around. She denies having recent deitary indiscretions, but has had chips and Reddy's in her room and her sugars have been elevated. After discussion, she states she checks her sugars several times per day and worries about them constantly, and tries to adjust her sugars by eating less, as she has not recently used sliding scale insulin. She would be amenable to doing lantus and sliding scale to compliment her frequent checking and alleviate her concerns. General Appearance: WD/WN, no apparent distress Respiratory: chest non-tender, lungs clear, normal breath sounds, no respiratory distress Cardiovascular: normal peripheral pulses, regular rate, rhythm, no edema, no murmur Gastrointestinal: normal bowel sounds, non tender, soft, no organomegaly Assessment/Plan 36 y/o female h/o DMII who has been off lantus for 3 days and presented to for DKA DKA - lantus/aspart regimen. Trend FSBS. Monitor daily BMP. Encourage oral hydration. family living educator has visited. Hyponatremia - worsened, likely 2/2 hyperglycemia - encourage hydration, glycemic control Hypophosphatemia - replete, follow Acute on chronic pain incl' right hip pain - traumatic injury with fall, potentially w/ overlying trochanteric bursitis - repeat XR right hip, pain control taper (as is largely at baseline) Hypokalemia - resolved GERD - continue PPI therapy DVT PPX - Heparin
[2017-04-20 07:41] LABS: BLOOD UREA NITROGEN 6 mg/dl (7-18); CALCIUM 8.5 mg/dl (8.5-10.1); CARBON DIOXIDE 22 mmol/L (21-32); CREATININE 0.44 mg/dl (0.60-1.20); GLUCOSE 346 mg/dl (70-99); POTASSIUM 3.8 mmol/L (3.5-5.1); SODIUM 125 mmol/L (136-145)
[2017-04-20 07:45] LABS: PHOSPHORUS 2.6 mg/dl (2.5-4.9)
[2017-04-20] MEDS: VENLAFAXINE HCL 50 MG TAB PO SCH (08:25)
[2017-04-20] MEDS: POT PHOSPHATE MONOBASIC W/ SOD TAB PO SCH ×4 (08:26→20:23)
[2017-04-20] MEDS: POLYETHYLENE (MIRALAX) 17 GM PACK PO SCH (08:27)
[2017-04-20] MEDS: POTASSIUM CHLORIDE 20 MEQ TABCR PO SCH ×2 (08:28→20:23)
[2017-04-20] MEDS: PANTOprazole SOD 40 MG TAB PO SCH ×2 (08:28→20:23)
[2017-04-20] MEDS: INSULIN HUMAN 70% NPH/30% REGULAR SC SCH ×2 (08:30→17:53)
[2017-04-20 08:47] LABS: BASO % 0.1 %; BASO ABS # 0.02 K/uL (0-0.2); HEMOGLOBIN 9.3 g/dL (12.0-16.0); IG# 0.09 K/uL (0.00-0.02); LYMPH % 3.5 %; MEAN CELL VOLUME 86.5 fL (80-100); MEAN CORPUSCULAR HEMOGLOBIN 29.8 pg (25-34); MEAN CORPUSCULAR HGB CONC 34.4 g/dl (32-36); MEAN PLATELET VOLUME 10.3 fL (7.4-10.4); MONO % 7.2 %; MONO ABS # 1.25 K/uL (0.11-0.59); NEUT % 88.7 %; NEUT ABS # 15.39 K/uL (1.4-6.5); PLATELET COUNT 219 K/uL (130-400); RED CELL DISTRIBUTION WIDTH CV 12.9 % (11.5-14.5); RED CELL DISTRIBUTION WIDTH SD 40.9 fL (36.4-46.3); WHITE BLOOD COUNT 17.35 K/uL (4.8-10.8)
[2017-04-20] MEDS: CYCLOBENZAPRINE HCL 10 MG TAB PO PRN ×2 (09:47→17:51)
[2017-04-20] MEDS ORDERED: MAGNESIUM OXIDE 400 MG TAB PO ONE (09:59)
[2017-04-20] MEDS ORDERED: INSULIN ASPART 100 UNITS/ML 3 ML PEN SC STA (15:06)
[2017-04-20] MEDS: INSULIN ASPART 100 UNITS/ML 3 ML PEN SC SCH ×2 (17:57→21:59)
[2017-04-21] MEDS: HEPARIN SOD 5000 UNIT/0.5 ML CARP SQ SCH (06:00)
[2017-04-21] MEDS: KETOROLAC TROMETHAMINE 15 MG/ML VIAL IV PRN ×2 (06:03→11:04)
[2017-04-21 06:40] LABS: HEMATOCRIT 28.6 % (37-47); HEMOGLOBIN 9.9 g/dL (12.0-16.0); MEAN CELL VOLUME 87.2 fL (80-100); MEAN CORPUSCULAR HEMOGLOBIN 30.2 pg (25-34); MEAN CORPUSCULAR HGB CONC 34.6 g/dl (32-36); PLATELET COUNT 248 K/uL (130-400); RED CELL DISTRIBUTION WIDTH CV 12.9 % (11.5-14.5); RED CELL DISTRIBUTION WIDTH SD 41.8 fL (36.4-46.3); WHITE BLOOD COUNT 23.57 K/uL (4.8-10.8)
[2017-04-21 07:08] LABS: ALBUMIN 1.6 gm/dl (3.4-5.0); ALT/SGPT 39 U/L (12-78); AST/SGOT 86 U/L (15-37); BLOOD UREA NITROGEN 5 mg/dl (7-18); CALCIUM 8.6 mg/dl (8.5-10.1); CARBON DIOXIDE 27 mmol/L (21-32); CREATININE 0.45 mg/dl (0.60-1.20); GLUCOSE 200 mg/dl (70-99); POTASSIUM 3.8 mmol/L (3.5-5.1); SODIUM 126 mmol/L (136-145)
[2017-04-21 07:11] LABS: ALKALINE PHOSPHATASE 227 U/L (45-117); PHOSPHORUS 2.8 mg/dl (2.5-4.9); TOTAL PROTEIN 5.9 gm/dl (6.4-8.2)
[2017-04-21 07:16] LABS: BASO % 0.2 %; BASO ABS # 0.04 K/uL (0-0.2); EOS % 0.3 %; EOS ABS # 0.06 K/uL (0-0.5); IG# 0.22 K/uL (0.00-0.02); LYMPH % 2.4 %; LYMPH ABS # 0.56 K/uL (1.2-3.4); MONO % 10.4 %; MONO ABS # 2.45 K/uL (0.11-0.59); NEUT % 85.8 %; NEUT ABS # 20.24 K/uL (1.4-6.5)
[2017-04-21] MEDS: CYCLOBENZAPRINE HCL 10 MG TAB PO PRN ×2 (07:20→23:03)
[2017-04-21] MEDS: POT PHOSPHATE MONOBASIC W/ SOD TAB PO SCH ×4 (07:20→20:10)
[2017-04-21] MEDS: POTASSIUM CHLORIDE 20 MEQ TABCR PO SCH ×2 (07:20→20:09)
[2017-04-21] MEDS: MAGNESIUM OXIDE 400 MG TAB PO SCH ×2 (07:21→20:09)
[2017-04-21] MEDS: VENLAFAXINE HCL 50 MG TAB PO SCH (07:22)
[2017-04-21] MEDS: PANTOprazole SOD 40 MG TAB PO SCH ×2 (07:23→20:08)
[2017-04-21] MEDS: POLYETHYLENE (MIRALAX) 17 GM PACK PO SCH (07:24)
[2017-04-21 07:58] VITALS: BP 136/73; PULSE 112; TEMP 37.8; O2SAT 91
[2017-04-21] MEDS ORDERED: INSULIN GLARGINE SOLOSTAR 100 UNITS/ML 3 ML PEN SC SCH (08:00)
[2017-04-21] MEDS ORDERED: MAGNESIUM OXIDE 400 MG TAB PO SCH (08:00)
--- NOTE | 2017-04-21 09:20 | Family Medicine Progress Note ---
Progress Note Date of Service Apr 21, 2017. Subjective Pt evaluation today including: conversation w/ patient, physical exam, chart review, lab review, review of studies, review of inpatient medication list Patient reporting severe pain in her right leg today. It is in the same place as her pain since admission on the distal lateral thigh. Since she was complaining of increasing leg swelling last night an US doppler was ordered however she only just went down this morning to get this and the results are not yet available. She is also complaining of increasing back and abdominal pain today. The back pain is the same as she has been complaining about since admission but the abdominal pains (epigastric and RLQ) are new from last night. She denies any fevers or chills, cough, chest pain, shortness of breath, she is yet to have a bowel movement however is passing flatus, no nausea or vomiting. Her Urine culture did grow gram negative bacilli and she reports today she has been having a mild burning sensation at the end of when she urinates. All Other Systems: Reviewed and Negative Medications Current Inpatient Medications Medications (Trade) Dose Ordered Sig/Tosha Route Start Time Stop Time Status Last Admin Dose Admin Acetaminophen (Tylenol Tab) 650 mg Q4H PRN PO 04/17/17 01:00 05/17/17 00:59 04/20/17 22:01 650 MG Glucose (Glucose 40% Gel) UD PRN PO 04/17/17 01:30 05/17/17 01:29 Glucose (Glucose Chew Tab) 1 tabs UD PRN PO 04/17/17 01:30 05/17/17 01:29 Dextrose (Dextrose 50% 50ML Syringe) 50 ml UD PRN IV 04/17/17 01:30 05/17/17 01:29 Glucagon (Glucagon Inj) 1 mg UD PRN SQ 04/17/17 01:30 05/17/17 01:29 Heparin Sodium (Porcine) (Heparin Sq 5000 Unit/0.5ml) 5,000 unit Q8 SQ 04/17/17 12:00 05/17/17 11:59 04/20/17 21:57 5,000 UNIT Ketorolac Tromethamine (Toradol Inj) 15 mg Q6H PRN IV 04/17/17 02:45 04/22/17 02:44 04/21/17 06:03 15 MG Pantoprazole Sodium (Protonix Tab) 40 mg BID PO 04/17/17 09:00 05/17/17 08:59 04/21/17 07:23 40 MG Venlafaxine HCl (effeXOR TAB) 100 mg DAILY PO 04/17/17 09:00 05/17/17 08:59 04/21/17 07:22 100 MG Ondansetron HCl (Zofran Inj) 4 mg Q4H PRN IV 04/17/17 11:15 05/17/17 11:14 04/17/17 11:26 4 MG Potassium Chloride (Klor-Con Tab) 40 meq BID PO 04/17/17 21:00 05/17/17 20:59 04/21/17 07:20 40 MEQ Cyclobenzaprine HCl (Flexeril Tab) 10 mg DAILY PRN PO 04/18/17 03:30 05/18/17 03:29 04/21/17 07:20 10 MG Potassium/ Phosphorus/Sodium (Phospha 250 Neutral 155-852-130 Mg) 2 tab QID PO 04/19/17 13:00 05/19/17 12:59 04/21/17 07:20 2 TAB Polyethylene (Miralax Powder Packet) 17 gm DAILY PO 04/20/17 09:00 05/20/17 08:59 04/21/17 07:24 17 GM Insulin Aspart (novoLOG ASPART) SLIDING SCALE G... ACHS SC 04/20/17 16:30 05/20/17 16:29 04/20/17 17:57 15 UNITS Magnesium Oxide (Mag-Ox Tab) 400 mg BID PO 04/21/17 08:00 05/21/17 08:59 04/21/17 07:21 400 MG Insulin Glargine (Lantus Solostar Pen) 30 units BID SC 04/21/17 08:00 05/21/17 07:59 Ceftriaxone Sodium 1 gm/ Dextrose 50 ml @ 100 mls/hr Q24H IV 04/21/17 09:00 04/26/17 08:59 Objective Vital Signs Date Time Temp Pulse Resp B/P (MAP) Pulse Ox O2 Delivery O2 Flow Rate FiO2 04/21/17 07:58 37.8 112 20 136/73 (94) 91 04/21/17 07:43 Room Air 04/21/17 00:15 Room Air 04/20/17 23:47 36.8 139 22 113/71 (85) 99 Room Air 04/20/17 16:50 Room Air 04/20/17 16:13 36.8 104 20 132/84 (100) 100 Room Air 04/20/17 12:00 96 Room Air 04/20/17 12:00 36.9 111 18 134/86 (102) 97 Room Air 04/20/17 12:00 97 Room Air 04/20/17 11:37 37.4 108 20 135/83 (100) 98 Room Air Physical Exam General Appearance: + moderate distress (from abdominal/back and right distal thigh pain), + obese, + pertinent finding (non toxic appearing) Neck: supple, no adenopathy, no JVD, trachea midline Respiratory/Chest: normal breath sounds, no respiratory distress, no accessory muscle use Cardiovascular: no murmur, + tachycardia Abdomen: normal bowel sounds, soft, + tenderness (epigastric and RLQ tenderness without guarding or rebound), + pertinent finding (pain on light palpation of flanks b/l but worse on right side) Extremities: no pedal edema, no calf tenderness, normal capillary refill Neurologic/Psychiatric: shank boner II-XII nml as tested (no facial droop), no motor/ sensory deficits (NV intact distal to right hip), alert, oriented x 3 Laboratory Results 04/21/17 06:07 Red Blood Count 3.28, Mean Corpuscular Volume 87.2, Mean Corpuscular Hemoglobin 30.2, Mean Corpuscular Hemoglobin Concent 34.6, Mean Platelet Volume 9.0, Neutrophils (%) (Auto) 85.8, Lymphocytes (%) (Auto) 2.4, Monocytes (%) (Auto) 10.4, Eosinophils (%) (Auto) 0.3, Basophils (%) (Auto) 0.2, Neutrophils # (Auto ) 20.24, Lymphocytes # (Auto) 0.56, Monocytes # (Auto) 2.45, Eosinophils # (Auto ) 0.06, Basophils # (Auto) 0.04 04/21/17 06:07 Test 04/21/17 06:07 04/21/17 07:37 04/21/17 07:40 White Blood Count 23.57 K/uL (4.8-10.8) Red Blood Count 3.28 M/uL (4.2-5.4) Hemoglobin 9.9 g/dL (12.0-16.0) Hematocrit 28.6 % (37-47) Mean Corpuscular Volume 87.2 fL (80-100) Mean Corpuscular Hemoglobin 30.2 pg (25-34) Mean Corpuscular Hemoglobin Concent 34.6 g/dl (32-36) Platelet Count 248 K/uL (130-400) Mean Platelet Volume 9.0 fL (7.4-10.4) Neutrophils (%) (Auto) 85.8 % Lymphocytes (%) (Auto) 2.4 % Monocytes (%) (Auto) 10.4 % Eosinophils (%) (Auto) 0.3 % Basophils (%) (Auto) 0.2 % Neutrophils # (Auto) 20.24 K/uL (1.4-6.5) Lymphocytes # (Auto) 0.56 K/uL (1.2-3.4) Monocytes # (Auto) 2.45 K/uL (0.11-0.59) Eosinophils # (Auto) 0.06 K/uL (0-0.5) Basophils # (Auto) 0.04 K/uL (0-0.2) RDW Standard Deviation 41.8 fL (36.4-46.3) RDW Coefficient of Variation 12.9 % (11.5-14.5) Immature Granulocyte % (Auto) 0.9 % Immature Granulocyte # (Auto) 0.22 K/uL (0.00-0.02) Anion Gap 10.0 mmol/L (3-11) Est Creatinine Clear Calc Drug Dose 216.6 ml/min Estimated GFR () > 150.0 Estimated GFR (Non- 129.8 BUN/Creatinine Ratio 11.2 (10-20) Calcium Level 8.6 mg/dl (8.5-10.1) Phosphorus Level 2.8 mg/dl (2.5-4.9) Magnesium Level 1.2 mg/dl (1.8-2.4) Total Bilirubin 0.9 mg/dl (0.2-1) Aspartate Amino Transf (AST/SGOT) 86 U/L (15-37) Alanine Aminotransferase (ALT/SGPT) 39 U/L (12-78) Alkaline Phosphatase 227 U/L (45-117) Total Protein 5.9 gm/dl (6.4-8.2) Albumin 1.6 gm/dl (3.4-5.0) Globulin 4.3 gm/dl (2.5-4.0) Albumin/Globulin Ratio 0.4 (0.9-2) Bedside Glucose 239 mg/dl (70-90) Osmolality 272 mOsm/kg (280-300) Lipase 49 U/L (73-393) Assessment and Plan 36 yo F w/ h/o Diabetes , Fibromyalgia presenting in DKA secondary to lack of insulin administration for 2-3 days prior to arrival, Anion gap closed. Leukocytosis of unclear etiology - worsening leukocytosis, now with low grade fever and abdominal pain. - urine culture grew gram negative bacilli and she has been having flank pain suspected to be muscular from the fall given pain on light paraspinal palpation however may represent pyelonepritis - RLQ pain raises suspicion of appendicitis - given this differential will obtain a CT with IV contrast - blood cultures stat - lactic acid and procalcitonin with afternoon labs - unclear etiology at this stage so will hold off antibiotics as patient is non toxic with a very high WBC Abdominal pain - see above, lipase added to labs from this morning to assess for pancreatitis given epigastric tenderness Elevated AST and ALP - denies alcohol or IVDU - does not fit pattern of hepatitis - liver to be evaluate with CT as above - monitor trend Right adductor hematoma / Thigh pain - unclear etiology of thigh pain as most of her pain is not where the hematoma is however suspect it is her fibromyalgia is making the pain - stop heparin - CK with afternoon labs - monitor Hgb Malnourished - she reports starving herself in order to treat previous hyperglycemic episodes - reflected in very low albumin for her age with difficult to replenish electrolytes (potassium and magnesium) Hypokalemia / Hypophosphatemia / hypomagnesemia - suspect some intracellular shifts as insulin is given however degree is more reflextive of chronic malnourishment - K Phos 2 tabs QID, - Magnesium oxide 400 mg PO BID - K Cl 40 meq BID - monitor with BMP in afternoon DKA - secondary to lack of insulin administration prior to arrival x 2-3 days, admitting diagnosis although possibly more HHS as initial pH > 7.30 - Anion Gap has closed, Hb A1C 9.1 - Diabetic Education appreciated - After much discussion and education she is now going to switch to a basal bolus regimen with lantus and sliding scale insulin Anemia - suspect due to hematoma - monitor Hgb, stop heparin GERD: - Protonix 40mg PO BID VTE Prophylaxis - stop heparin secondary to hematoma - TEDs and SCD Code - Full Disposition - Continued med/surg stay due to infective etiology suspect of unknown cause and worsening pain History Resident Physician Supervision Note: I was present with Dr. Rodriguez during the history and exam. I discussed the case with the resident and agree with the findings and plan as documented in the note. Any exceptions or clarifications are listed here. Pt reports new onset abdominal pain today which is greatest in the right flank and suprapubic region. Reports stable unchanged lateral thigh pain over greater trochanter w/o other leg pain. Improving fatigue. Reports no fever, chills, PALOMO, lightheadedness, palpitations, nausea/vomiting, rashes. General Appearance: no apparent distress, obese Respiratory: chest non-tender, lungs clear, normal breath sounds, no respiratory distress Cardiovascular: normal peripheral pulses, regular rate, rhythm, no edema, no murmur Gastrointestinal: normal bowel sounds, soft, no organomegaly, tenderness (RUQ and suprapubic w/ +ve CVA TTP) Extremities: other (limited ROM 2/2 pain w/ mild TTP over adductor muscles) Neurologic/Psychiatric: alert, normal mood/affect, oriented x 3 Assessment/Plan 36 y/o female h/o DMII who has been off lantus for 3 days and presented to for DKA Abdominal pain - slight renal asymmetry on CT w/ abn UA and elevated WBC - treating empirically for pyelonephritis - monitor BMP Right medial thigh hematoma - pain control, ortho c/s placed for r/o abscess Hyperglycemia in the setting of IDDM - lantus/aspart regimen. Trend FSBS. Monitor daily BMP. Encourage oral hydration. healthcare educator has visited. Hyponatremia - worsened, likely 2/2 hyperglycemia v. poor oral hydration - encourage hydration, glycemic control, t/c bolus, trend Hypophosphatemia - repleted Hypokalemia - repleted Transaminitis in the setting of hypoalbuminemia - no reported risk factors for hepatitis or HIV, no apparent sign of overlying trauma. Pt does report that she has been virtually starving herself in order to control her sugars w/ 70/30 regimen at home without ISS, basically not eating if she was hyperglycemic and reports that she's lost 45 lbs as a result. Would monitor closely and consider hepatitis testing. Acute on chronic pain incl' right hip pain - traumatic injury with fall, potentially w/ overlying trochanteric bursitis - repeat XR right hip, pain control taper (as is largely at baseline) GERD - continue PPI therapy DVT PPX - Heparin
[2017-04-21] MEDS ORDERED: SODIUM CHLORIDE 0.9% 1000ML 1,000 ML IV STA (09:31)
[2017-04-21] MEDS ORDERED: OPTIRAY 320 IV PRN (09:45)
[2017-04-21] MEDS: INSULIN ASPART 100 UNITS/ML 3 ML PEN SC SCH ×4 (09:46→20:53)
[2017-04-21] MEDS: INSULIN GLARGINE SOLOSTAR 100 UNITS/ML 3 ML PEN SC SCH ×2 (09:47→20:50)
--- NOTE | 2017-04-21 10:32 | DIAGNOSTIC IMAGING REPORT ---
BILATERAL LOWER EXTREMITY VENOUS DOPPLER CLINICAL HISTORY: Swollen painful right leg. COMPARISON STUDY: No previous studies for comparison. TECHNIQUE: Sonography of the deep venous system of the bilateral lower extremities was performed. Compression and augmentation were evaluated. FINDINGS: The bilateral common femoral, superficial femoral and popliteal veins were compressible. Augmentation was normal. Flow was shown within the deep calf vessels. Note is made of a 13.2 x 5.3 x 4 cm hypoechoic abnormality within the medial right thigh which may be intramuscular in location. This contains no color flow and suggest a large hematoma. IMPRESSION: 1. No evidence of deep venous thrombus within the bilateral lower extremities. 2. 13.2 x 5.3 x 4 cm hypoechoic abnormality within the proximal medial right thigh which favors a large intramuscular hematoma. 2 month sonographic follow up is recommended to exclude the unlikely possibility of an underlying mass. Electronically signed by: Wilber Smith M.D. 04/21/2017 10:30 AM Dictated Date/Time: 04/21/2017 10:28 AM
[2017-04-21] MEDS: CEFTRIAXONE SOD INJ 1 GM in DEXTROSE 5% ADD-VANTAGE 50ML 50 ML IV SCH (11:25)
--- NOTE | 2017-04-21 11:39 | DIAGNOSTIC IMAGING REPORT ---
CT OF THE ABDOMEN AND PELVIS WITH CONTRAST CLINICAL HISTORY: Right lower quadrant pain. Epigastric pain. COMPARISON STUDY: Bilateral lower extremity venous Doppler April 21, 2017. TECHNIQUE: Following IV administration of 93 mL of Optiray-320, axial images of the abdomen and pelvis were obtained from the lung bases to the proximal femurs. Images were reviewed in the axial, sagittal, and coronal planes. IV contrast was administered without complication. A dose lowering technique was utilized adhering to the principles of ALARA. CT DOSE: 709.08 mGy.cm FINDINGS: Lung bases are clear. Mild splenomegaly is noted. Liver is slightly heterogeneous with areas of decreased attenuation. This could reflect fatty infiltration. There is no biliary or pancreatic ductal dilatation. There is pancreatic glandular atrophy. There is no peripancreatic or pericholecystic infiltration. There is no hydronephrosis. There may be slight asymmetric enlargement of the right kidney. There is no definite evidence for pyelonephritis. Caliber and wall thickness of small and large bowel are normal. The appendix is normal. Suspected subcutaneous injection sites of the anterior abdominal wall are noted. There is no lymphadenopathy. No suspicious osseous lesions are present. There is trace fluid within the pelvis. There is a partially visualized intermediate attenuation abnormality within the right adductor muscles that measures at least 7.3 cm and corresponds to the finding shown on ultrasound performed earlier today. IMPRESSION: 1. Normal appendix. 2. Intramuscular abnormality within the right adductor musculature which corresponds to the finding shown on ultrasound of April 21, 2017. The sonographic appearance favors a hematoma however an abscess could appear similar. 3. Slight asymmetric enlargement of the right kidney which is likely within normal limits. No convincing evidence for pyelonephritis however findings could be correlated with urinalysis. 4. Mild splenomegaly. 5. Heterogeneity of the liver which favors fatty infiltration. Electronically signed by: Wilber Smith M.D. 04/21/2017 11:38 AM Dictated Date/Time: 04/21/2017 11:31 AM
[2017-04-21 15:03] LABS: BLOOD UREA NITROGEN 5 mg/dl (7-18); CARBON DIOXIDE 29 mmol/L (21-32); CREATININE 0.44 mg/dl (0.60-1.20); GLUCOSE 195 mg/dl (70-99); POTASSIUM 3.2 mmol/L (3.5-5.1); SODIUM 126 mmol/L (136-145)
[2017-04-21] MEDS: MoRPHine SULFATE 4 MG/ML 1 ML CARP\\VIAL IV PRN ×3 (15:34→20:49)
[2017-04-21 15:46] VITALS: BP 139/84; PULSE 115; TEMP 37.6; O2SAT 99
[2017-04-21] MEDS ORDERED: POTASSIUM CHLORIDE 20 MEQ TABCR PO STA (16:44)
[2017-04-21] MEDS: MAGNESIUM SULFATE 1GM / D5W 1 GM in PREMIXED IN D5W 100 ML IV SCH ×2 (17:25→18:31)
[2017-04-21] MEDS: POTASSIUM CHLORIDE INJ 40 MEQ in SODIUM CHLORIDE 0.9% 1000ML 1,000 ML IV SCH (18:31)
[2017-04-21 20:00] VITALS: O2SAT 99
[2017-04-21 21:14] LABS: SODIUM RANDOM URINE 23 mEq/L
[2017-04-21 21:30] LABS: OSMOLALITY,URINE 380 mOms/kg (500-800)
[2017-04-21 23:35] VITALS: BP 118/70; PULSE 98; TEMP 36.8; O2SAT 100
[2017-04-22] MEDS: MoRPHine SULFATE 4 MG/ML 1 ML CARP\\VIAL IV PRN ×4 (00:59→08:46)
[2017-04-22] MEDS: POTASSIUM CHLORIDE INJ 40 MEQ in SODIUM CHLORIDE 0.9% 1000ML 1,000 ML IV SCH ×3 (03:52→18:13)
[2017-04-22] MEDS: INSULIN ASPART 100 UNITS/ML 3 ML PEN SC SCH ×4 (06:28→20:05)
[2017-04-22 06:38] LABS: HEMATOCRIT 28.4 % (37-47); HEMOGLOBIN 9.9 g/dL (12.0-16.0); MEAN CELL VOLUME 87.7 fL (80-100); MEAN CORPUSCULAR HEMOGLOBIN 30.6 pg (25-34); MEAN CORPUSCULAR HGB CONC 34.9 g/dl (32-36); MEAN PLATELET VOLUME 9.1 fL (7.4-10.4); PLATELET COUNT 298 K/uL (130-400); RED CELL DISTRIBUTION WIDTH CV 12.9 % (11.5-14.5); RED CELL DISTRIBUTION WIDTH SD 42.1 fL (36.4-46.3); WHITE BLOOD COUNT 29.45 K/uL (4.8-10.8)
[2017-04-22 06:55] LABS: BASO % 0.1 %; BASO ABS # 0.03 K/uL (0-0.2); EOS % 0.1 %; EOS ABS # 0.03 K/uL (0-0.5); LYMPH % 2.2 %; LYMPH ABS # 0.65 K/uL (1.2-3.4); MONO ABS # 2.06 K/uL (0.11-0.59); NEUT % 88.9 %; NEUT ABS # 26.18 K/uL (1.4-6.5)
[2017-04-22 07:00] LABS: ALBUMIN 1.4 gm/dl (3.4-5.0); ALT/SGPT 27 U/L (12-78); AST/SGOT 21 U/L (15-37); BLOOD UREA NITROGEN 6 mg/dl (7-18); CALCIUM 8.3 mg/dl (8.5-10.1); CARBON DIOXIDE 29 mmol/L (21-32); CREATININE 0.41 mg/dl (0.60-1.20); GLUCOSE 172 mg/dl (70-99); POTASSIUM 3.6 mmol/L (3.5-5.1); SODIUM 129 mmol/L (136-145)
[2017-04-22 07:05] LABS: ALKALINE PHOSPHATASE 225 U/L (45-117); PHOSPHORUS 3.2 mg/dl (2.5-4.9); TOTAL PROTEIN 5.4 gm/dl (6.4-8.2)
[2017-04-22 07:11] VITALS: BP 112/63; PULSE 106; TEMP 36.9; O2SAT 95
[2017-04-22] MEDS: VENLAFAXINE HCL 50 MG TAB PO SCH (08:53)
[2017-04-22] MEDS: MAGNESIUM OXIDE 400 MG TAB PO SCH ×2 (08:54→20:07)
[2017-04-22] MEDS: POLYETHYLENE (MIRALAX) 17 GM PACK PO SCH (08:54)
[2017-04-22] MEDS: POTASSIUM CHLORIDE 20 MEQ TABCR PO SCH ×2 (08:54→20:07)
[2017-04-22] MEDS: CEROVITE ADV FORMULA TAB PO SCH (08:54)
[2017-04-22] MEDS: POT PHOSPHATE MONOBASIC W/ SOD TAB PO SCH ×4 (08:55→20:06)
[2017-04-22] MEDS: PANTOprazole SOD 40 MG TAB PO SCH ×2 (08:55→20:08)
[2017-04-22] MEDS: CEFTRIAXONE SOD INJ 1 GM in DEXTROSE 5% ADD-VANTAGE 50ML 50 ML IV SCH (08:57)
[2017-04-22] MEDS: INSULIN GLARGINE SOLOSTAR 100 UNITS/ML 3 ML PEN SC SCH ×2 (08:57→20:12)
[2017-04-22] MEDS ORDERED: RANITIDINE HCL 150 MG TAB PO ONE (09:15)
--- NOTE | 2017-04-22 09:33 | Family Medicine Progress Note ---
Progress Note Date of Service Apr 22, 2017. Subjective Pt evaluation today including: conversation w/ patient, physical exam, chart review, lab review, review of studies, review of inpatient medication list Patient feels her pain in her back has improved since starting antibiotics the previous day. Her pain in her leg however is worse than the previous day, morphine is not helping the pain much. She is currently NPO pending orthopedic opinion regarding the hematoma/abscess and feels very hungry. She reports the pain in her thigh is still mostly on the lateral side and is now in her lower leg and foot in addition. She feels her whole leg is swollen. She denies any fevers, chills, chest pain, shortness of breath. All Other Systems: Reviewed and Negative Medications Current Inpatient Medications Medications (Trade) Dose Ordered Sig/Tosha Route Start Time Stop Time Status Last Admin Dose Admin Acetaminophen (Tylenol Tab) 650 mg Q4H PRN PO 04/17/17 01:00 05/17/17 00:59 04/20/17 22:01 650 MG Glucose (Glucose 40% Gel) UD PRN PO 04/17/17 01:30 05/17/17 01:29 Glucose (Glucose Chew Tab) 1 tabs UD PRN PO 04/17/17 01:30 05/17/17 01:29 Dextrose (Dextrose 50% 50ML Syringe) 50 ml UD PRN IV 04/17/17 01:30 05/17/17 01:29 Glucagon (Glucagon Inj) 1 mg UD PRN SQ 04/17/17 01:30 05/17/17 01:29 Heparin Sodium (Porcine) (Heparin Sq 5000 Unit/0.5ml) 5,000 unit Q8 SQ 04/17/17 12:00 05/17/17 11:59 Future Hold 04/20/17 21:57 5,000 UNIT Pantoprazole Sodium (Protonix Tab) 40 mg BID PO 04/17/17 09:00 05/17/17 08:59 04/22/17 08:55 40 MG Venlafaxine HCl (effeXOR TAB) 100 mg DAILY PO 04/17/17 09:00 05/17/17 08:59 04/22/17 08:53 100 MG Ondansetron HCl (Zofran Inj) 4 mg Q4H PRN IV 04/17/17 11:15 05/17/17 11:14 04/17/17 11:26 4 MG Potassium Chloride (Klor-Con Tab) 40 meq BID PO 04/17/17 21:00 05/17/17 20:59 04/22/17 08:54 40 MEQ Potassium/ Phosphorus/Sodium (Phospha 250 Neutral 155-852-130 Mg) 2 tab QID PO 04/19/17 13:00 05/19/17 12:59 04/22/17 08:55 2 TAB Polyethylene (Miralax Powder Packet) 17 gm DAILY PO 04/20/17 09:00 05/20/17 08:59 04/22/17 08:54 17 GM Insulin Aspart (novoLOG ASPART) SLIDING SCALE G... ACHS SC 04/20/17 16:30 05/20/17 16:29 04/22/17 06:28 1 UNITS Magnesium Oxide (Mag-Ox Tab) 400 mg BID PO 04/21/17 08:00 05/21/17 08:59 04/22/17 08:54 400 MG Insulin Glargine (Lantus Solostar Pen) 30 units BID SC 04/21/17 08:00 05/21/17 07:59 04/22/17 08:57 30 UNITS Ceftriaxone Sodium 1 gm/ Dextrose 50 ml @ 100 mls/hr Q24H IV 04/21/17 09:00 04/26/17 08:59 04/22/17 08:57 100 MLS/HR Morphine Sulfate (MoRPHine SULFATE INJ) 4 mg Q2H PRN IV 04/21/17 09:45 05/05/17 09:44 04/22/17 08:46 4 MG Ioversol (Optiray 320) 111 ml UD PRN IV 04/21/17 09:45 04/25/17 09:44 Potassium Chloride 40 meq/ Sodium Chloride 1,020 ml @ 125 mls/hr Q8H10M IV 04/21/17 17:15 05/21/17 17:14 04/22/17 03:52 125 MLS/HR Multivitamins/ Minerals (Multivitamin W/ Minerals Tab) 1 tab QAM PO 04/22/17 08:00 05/22/17 07:59 04/22/17 08:54 1 TAB Cyclobenzaprine HCl (Flexeril Tab) 10 mg TID PRN PO 04/21/17 21:30 05/18/17 03:29 04/21/17 23:03 10 MG Ranitidine HCl (zANTac TAB) 150 mg BID PO 04/22/17 20:00 05/22/17 19:59 Ranitidine HCl (zANTac TAB) 150 mg 0915 ONCE PO 04/22/17 09:15 04/22/17 09:16 Objective Vital Signs Date Time Temp Pulse Resp B/P (MAP) Pulse Ox O2 Delivery O2 Flow Rate FiO2 04/22/17 07:11 36.9 106 18 112/63 (79) 95 Room Air 04/21/17 23:35 36.8 98 18 118/70 (86) 100 Room Air 04/21/17 20:00 99 Room Air 04/21/17 15:46 37.6 115 20 139/84 (102) 99 Room Air 04/21/17 15:22 Room Air Physical Exam General Appearance: + moderate distress (from pain in leg), + obese (non toxic appearing, on edge of bed) Respiratory/Chest: lungs clear, normal breath sounds, no respiratory distress, no accessory muscle use Cardiovascular: no murmur, + tachycardia Abdomen: normal bowel sounds, soft, + pertinent finding (epigastric tenderness , no rebound or guarding) Extremities: normal capillary refill (right foot), + calf tenderness (right sided), + pedal edema (1+ on right to bacon, none on left) Neurologic/Psychiatric: no motor/sensory deficits (distal to right hip, no foot drop, she has pain but sensation is intact), alert, oriented x 3, + pertinent finding Skin: normal color (right foot, no sign of ischemia), warm/dry, no rash Laboratory Results 04/22/17 05:48 Red Blood Count 3.24, Mean Corpuscular Volume 87.7, Mean Corpuscular Hemoglobin 30.6, Mean Corpuscular Hemoglobin Concent 34.9, Mean Platelet Volume 9.1, Neutrophils (%) (Auto) 88.9, Lymphocytes (%) (Auto) 2.2, Monocytes (%) (Auto) 7.0, Eosinophils (%) (Auto) 0.1, Basophils (%) (Auto) 0.1, Neutrophils # (Auto) 26.18, Lymphocytes # (Auto) 0.65, Monocytes # (Auto) 2.06, Eosinophils # (Auto) 0.03, Basophils # (Auto) 0.03 04/22/17 05:48 Test 04/21/17 14:25 04/21/17 14:26 04/21/17 20:40 04/22/17 05:48 Total Creatine Kinase 227 U/L (26-192) Procalcitonin 2.64 ng/ml (0-0.5) Lactic Acid Level 1.0 mmol/L (0.4-2.0) Urine Osmolality 380 mOms/kg (500-800) Urine Random Sodium 23 mEq/L White Blood Count 29.45 K/uL (4.8-10.8) Red Blood Count 3.24 M/uL (4.2-5.4) Hemoglobin 9.9 g/dL (12.0-16.0) Hematocrit 28.4 % (37-47) Mean Corpuscular Volume 87.7 fL (80-100) Mean Corpuscular Hemoglobin 30.6 pg (25-34) Mean Corpuscular Hemoglobin Concent 34.9 g/dl (32-36) Platelet Count 298 K/uL (130-400) Mean Platelet Volume 9.1 fL (7.4-10.4) Neutrophils (%) (Auto) 88.9 % Lymphocytes (%) (Auto) 2.2 % Monocytes (%) (Auto) 7.0 % Eosinophils (%) (Auto) 0.1 % Basophils (%) (Auto) 0.1 % Neutrophils # (Auto) 26.18 K/uL (1.4-6.5) Lymphocytes # (Auto) 0.65 K/uL (1.2-3.4) Monocytes # (Auto) 2.06 K/uL (0.11-0.59) Eosinophils # (Auto) 0.03 K/uL (0-0.5) Basophils # (Auto) 0.03 K/uL (0-0.2) RDW Standard Deviation 42.1 fL (36.4-46.3) RDW Coefficient of Variation 12.9 % (11.5-14.5) Immature Granulocyte % (Auto) 1.7 % Immature Granulocyte # (Auto) 0.50 K/uL (0.00-0.02) Toxic Granulation 2+ Toxic Vacuolation 1+ Dohle Bodies 1+ Anion Gap 8.0 mmol/L (3-11) Est Creatinine Clear Calc Drug Dose 237.7 ml/min Estimated GFR () > 150.0 Estimated GFR (Non- 133.9 BUN/Creatinine Ratio 13.4 (10-20) Calcium Level 8.3 mg/dl (8.5-10.1) Phosphorus Level 3.2 mg/dl (2.5-4.9) Magnesium Level 1.6 mg/dl (1.8-2.4) Total Bilirubin 0.6 mg/dl (0.2-1) Aspartate Amino Transf (AST/SGOT) 21 U/L (15-37) Alanine Aminotransferase (ALT/SGPT) 27 U/L (12-78) Alkaline Phosphatase 225 U/L (45-117) Total Protein 5.4 gm/dl (6.4-8.2) Albumin 1.4 gm/dl (3.4-5.0) Globulin 4.0 gm/dl (2.5-4.0) Albumin/Globulin Ratio 0.4 (0.9-2) Test 04/22/17 05:56 Bedside Glucose 183 mg/dl (70-90) Assessment and Plan 36 yo F w/ h/o Diabetes, Fibromyalgia admission for DKA (now resolved). Fell on her right hip on 14 April and hip XR were normal and she has been able to mobilize on her hip since, however she has had increasingly leg swelling and pain and subsequent US showed a suspected hematoma (less likely abscess). DKA - now resolved - secondary to lack of insulin (ran out) administration prior to arrival for 2- 3 days - Anion Gap has closed, Hb A1C 9.1 - Manage with basal bolus insulin - will need close endocrinology follow up on d/c Right adductor hematoma / Thigh pain - secondary to fall - unlikely compartment syndrome given location or hematoma, normal CK and normal (except pain) examination findings - no heparin since 04/19/16 - Hgb stable - appreciate orthopedic consult - advance diet. wean pain medication. anticipate d/c home once wbc count stabilizes. Leukocytosis - worsening - likely secondary to hematoma considering no fever. possibly secondary to UTI, possible pyelonephritis - follow counts UTI - possibly pyelonephritis - suspect pyelonephritis as back pain improving after antibiotics. - Klebsiella in urine pansensitive and will treat with IV ceftriaxone - blood cultures pending - lactic acid normal and patient appears non toxic therefore doubt hematoma is infected Abdominal pain - pyelonephritis +/- constipation (some relief with BM yesterday) on background of fibromyalgia - CT did not show any other abdominal pathology other than possible right sided pyelonephritis, lipase normal Hypokalemia / Hypophosphatemia / hypomagnesemia - secondary to DKA but also still needing supplementation therefore - suspect some intracellular shifts as insulin is given however degree is more reflective of chronic malnourishment - monitor daily BMP, Mg, PO Anemia - suspect due to hematoma - monitor Hgb, stop heparin and Toradol GERD - Continue Protonix 40mg PO BID VTE Prophylaxis - stopped heparin due to hematoma - TEDs and SCD Code - Full Disposition - Continue med/surg pending orthopedic workup Resident Tracking Resident Involvement: Resident Care Provided Care Provided: Adult Hospital Medicine Reviewed: Pt Seen/Exam by Me History continuing to have lot of thigh pain. no chest pain, shortness of breath no fever back pain improving Constitutional: denies: fever Respiratory: negative: short of breath Cardiovascular: denies chest pain General Appearance: no apparent distress Respiratory: lungs clear, no respiratory distress Cardiovascular: regular rate, rhythm Extremities: other (right thigh large hematoma ) Neurologic/Psychiatric: alert, oriented x 3 Skin Characteristics: warm/dry Assessment/Plan Resident Physician Supervision Note: I independently interviewed and examined the patient and verified the farrell history and physical, reviewed labs and image studies, discussed the case with the resident Dr. Rodriguez and agree with the findings and care plan.
--- NOTE | 2017-04-22 09:59 | HISTORY & PHYSICAL EXAMINATION ---
DATE OF ADMISSION: 04/22/2017 CHIEF COMPLAINT: Left thigh pain. HISTORY OF PRESENT ILLNESS: Elba is a pleasant woman, I saw her this morning approximately 7:10 a.m. This will be on Saturday. It was a nonurgent routine consultation. She does have fairly significant right thigh pain. The pain starts on the anterior aspect, that is her most acute area, travel slightly to the right lateral side. The left lower extremity is ____. She had a direct fall 8 days ago, came to the hospital more so for her diabetic ketoacidosis. She has had this significant thigh pain throughout. I am seeing her for the possibility of hematoma and/or abscess formation left thigh. PAST MEDICAL HISTORY: Diabetes, arthritis, fibromyalgia. SOCIAL HISTORY: Former smoker. ALLERGIES: LISINOPRIL. HOME MEDICATIONS: Magnesium oxide, Protonix, Effexor. Scheduled meds including Flexeril, Compazine, Xanax. REVIEW OF SYSTEMS: She denies any blurred vision, double vision. She communicates well. She articulates well. She has no chest pain, shortness of breath. Denies nausea, vomiting. OBJECTIVE: VITAL SIGNS: Blood pressure 100/70, pulse controlled 80 beats per minute. CARDIAC: Normal S1, S2. LUNGS: Clear. ABDOMEN: Soft, tender. EXTREMITIES: Her right thigh which is the reason for my consultation definitely in pain, mild to moderate swelling, it is somewhat circumferential compared to the left. There is no warmth, erythema. There is no breakage of skin. MUSCULOSKELETAL: She has pain with flexion, internal and external rotation of the right hip. She can move her knee. She is neurologically intact. Images of the hip were essentially normal. IMPRESSION: Ketoacidosis, hypokalemia, right hip and thigh pain, gastroesophageal reflux disease. DISPOSITION: At this point in time, it is definitely an interesting problem and confusing and I do not have a handle on her pain. It seems like it is mostly a contusion, that kind of issue. Medically, it could be hematoma. I doubtful of an abscess. Of note, is the fact that her leukocytes are significantly elevated. PLAN: At this point in time, I am ordering a CT scan of her hip and thigh region looking for fluid, possibly an occult fracture that could be contributing to the significant pain. I do not see any urgent surgical issues currently today and based on everything I know today the 04/22/2017. I will follow her closely. I will be rerounding on her later on this afternoon after I get the CT scan.
[2017-04-22] MEDS: ACETAMINOPHEN 325 MG TAB PO PRN ×2 (10:58→17:28)
[2017-04-22] MEDS ORDERED: MoRPHine SULFATE 4 MG/ML 1 ML CARP\\VIAL IV STA (14:34)
[2017-04-22 15:48] VITALS: BP 110/73; PULSE 98; TEMP 36.8; O2SAT 96
[2017-04-22] MEDS: CYCLOBENZAPRINE HCL 10 MG TAB PO PRN ×2 (17:25→23:30)
[2017-04-22] MEDS: TRAMADOL HCL 50 MG TAB PO PRN (20:06)
[2017-04-22] MEDS: RANITIDINE HCL 150 MG TAB PO SCH (20:06)
[2017-04-22 23:53] VITALS: BP 114/71; PULSE 106; TEMP 36.7; O2SAT 98
[2017-04-23] VITALS: O2SAT 99
[2017-04-23] MEDS: TRAMADOL HCL 50 MG TAB PO PRN ×3 (02:46→13:56)
[2017-04-23] MEDS ORDERED: MoRPHine SULFATE 4 MG/ML 1 ML CARP\\VIAL IV STA (02:50)
--- NOTE | 2017-04-23 06:38 | DIAGNOSTIC IMAGING REPORT ---
CT OF THE HEAD WITHOUT CONTRAST CLINICAL HISTORY: fell, head trauma COMPARISON STUDY: No previous studies for comparison. CT DOSE: 614.27 mGy.cm TECHNIQUE: Helical axial images of the head were obtained without IV contrast. Automated exposure control was utilized for the study. A dose lowering technique was utilized adhering to the principles of ALARA. FINDINGS: No acute intracranial hemorrhage, midline shift or mass effect is present. Ventricular system is unremarkable. Basilar cisterns are patent. There are no extra-axial collections. Garzon-white differentiation is maintained. There is a small right parietal scalp contusion. There is no calvarial fracture. White matter hypodensities are noted as well as mild volume loss. IMPRESSION: 1. No acute intracranial findings. 2. Scattered white matter hypodensities. These are nonspecific but statistically reflect small vessel disease which is greater than expected for age. Mild atrophy, greater than expected for age. 3. Small right parietal scalp contusion. No calvarial fracture. Electronically signed by: Wilber Smith M.D. 04/23/2017 6:36 AM Dictated Date/Time: 04/23/2017 6:33 AM
[2017-04-23 07:09] VITALS: BP 120/72; PULSE 104; TEMP 37.1; O2SAT 96
[2017-04-23 07:23] LABS: HEMATOCRIT 25.5 % (37-47); HEMOGLOBIN 8.8 g/dL (12.0-16.0); MEAN CELL VOLUME 88.2 fL (80-100); MEAN CORPUSCULAR HEMOGLOBIN 30.4 pg (25-34); MEAN CORPUSCULAR HGB CONC 34.5 g/dl (32-36); PLATELET COUNT 299 K/uL (130-400); RED CELL DISTRIBUTION WIDTH CV 13.4 % (11.5-14.5); RED CELL DISTRIBUTION WIDTH SD 43.2 fL (36.4-46.3); WHITE BLOOD COUNT 32.05 K/uL (4.8-10.8)
[2017-04-23 07:31] LABS: ALBUMIN 1.3 gm/dl (3.4-5.0); ALT/SGPT 21 U/L (12-78); AST/SGOT 28 U/L (15-37); BLOOD UREA NITROGEN 8 mg/dl (7-18); CALCIUM 8.2 mg/dl (8.5-10.1); CARBON DIOXIDE 26 mmol/L (21-32); CREATININE 0.41 mg/dl (0.60-1.20); GLUCOSE 172 mg/dl (70-99); POTASSIUM 3.9 mmol/L (3.5-5.1); SODIUM 127 mmol/L (136-145)
[2017-04-23 07:34] LABS: ALKALINE PHOSPHATASE 237 U/L (45-117); PHOSPHORUS 3.5 mg/dl (2.5-4.9); TOTAL PROTEIN 4.9 gm/dl (6.4-8.2)
[2017-04-23 07:41] LABS: BASO % 0.1 %; BASO ABS # 0.03 K/uL (0-0.2); EOS % 0.2 %; EOS ABS # 0.05 K/uL (0-0.5); IG# 0.42 K/uL (0.00-0.02); LYMPH % 1.6 %; LYMPH ABS # 0.52 K/uL (1.2-3.4); MONO % 4.3 %; MONO ABS # 1.39 K/uL (0.11-0.59); NEUT % 92.5 %; NEUT ABS # 29.64 K/uL (1.4-6.5)
[2017-04-23 08:00] VITALS: O2SAT 96
[2017-04-23] MEDS: POLYETHYLENE (MIRALAX) 17 GM PACK PO SCH (08:00)
[2017-04-23] MEDS: PANTOprazole SOD 40 MG TAB PO SCH ×2 (08:28→20:18)
[2017-04-23] MEDS: VENLAFAXINE HCL 50 MG TAB PO SCH (08:28)
[2017-04-23] MEDS: CEFTRIAXONE SOD INJ 1 GM in DEXTROSE 5% ADD-VANTAGE 50ML 50 ML IV SCH (08:28)
[2017-04-23] MEDS: CEROVITE ADV FORMULA TAB PO SCH (08:29)
[2017-04-23] MEDS: POTASSIUM CHLORIDE 20 MEQ TABCR PO SCH ×2 (08:29→19:48)
[2017-04-23] MEDS: MAGNESIUM OXIDE 400 MG TAB PO SCH ×2 (08:29→19:47)
[2017-04-23] MEDS: RANITIDINE HCL 150 MG TAB PO SCH ×2 (08:30→19:48)
[2017-04-23] MEDS: INSULIN ASPART 100 UNITS/ML 3 ML PEN SC SCH ×4 (08:38→21:48)
[2017-04-23] MEDS: INSULIN GLARGINE SOLOSTAR 100 UNITS/ML 3 ML PEN SC SCH ×2 (08:39→20:18)
[2017-04-23] MEDS: CYCLOBENZAPRINE HCL 10 MG TAB PO PRN ×2 (08:41→19:46)
--- NOTE | 2017-04-23 10:01 | DIAGNOSTIC IMAGING REPORT ---
R LOWER EXTREMITY WITHOUT CT DOSE: HISTORY: Mass ?femoral fracture ?worsening hematoma ?abscess TECHNIQUE: Multiaxial CT images of the right thigh were performed and reformatted in the sagittal and coronal plane without the use of contrast. A dose lowering technique was utilized adhering to the principles of ALARA. COMPARISON: Ultrasound 04/21/2017 FINDINGS: Generalized compression cellulitis about the upper thigh. This extends to the level of the right knee. Intramuscular collection/hematoma measuring 13 x 8 x 6 cm proximal to mid medial finding. Several small probable bubbles are noted within this structure. Mild generalized muscular edema throughout limited in terms of evaluation due to the absence of intravenous contrast enhancement. No well-defined acute bony abnormality. IMPRESSION: 1. Generalized subcutaneous fat cellulitis throughout the right thigh. 2. Intramuscular collection medial aspect upper right thigh measuring 13 x 8 x 6 cm.. 3. This contains several tiny air bubbles with several small reactive nodes in the right inguinal region. 4. This is in general similar compared to the dimension seen in the patient's prior ultrasound given differences in technique. 5. Although statistically suggestive of hematoma, given the presence of the minute air bubbles the possibility of a superimposed abscess is not excluded. 6. No acute bony abnormality. The above report was generated using voice recognition software. It may contain grammatical, syntax or spelling errors. Electronically signed by: Rambo Xiao M.D. 04/23/2017 10:00 AM Dictated Date/Time: 04/23/2017 9:54 AM
--- NOTE | 2017-04-23 10:06 | DIAGNOSTIC IMAGING REPORT ---
RIGHT HIP CT CT DOSE: 647.10 mGy.cm HISTORY: Right hip swelling. ?abscess ?worsening hematoma ?fracture TECHNIQUE: Multiaxial CT images of the . were performed and reformatted in the sagittal and coronal plane without the use of contrast. A dose lowering technique was utilized adhering to the principles of ALARA. COMPARISON: Right hip 04/18/2017. Abdomen and pelvis CT 04/21/2017. FINDINGS: Subcutaneous fat stranding/edema within the right hip. Partially visualized fluid collection within the proximal adductor muscles containing a few punctate foci of gas. This continues to measure approximately 7.3 cm in size. No right hip effusion identified. No fracture or dislocation within the right hip. No bony destruction to suggest osteomyelitis. Mild right external iliac lymphadenopathy is likely reactive. IMPRESSION: Redemonstration of the 7.3 cm intramuscular fluid collection within the proximal adductor muscles of the right lower extremity. This contains a few punctate foci of gas and therefore may represent an abscess. Electronically signed by: Dc Perez M.D. 04/23/2017 10:05 AM Dictated Date/Time: 04/23/2017 9:59 AM
[2017-04-23] MEDS ORDERED: PIPERACILL/TAZOBAC IV 4.5 GM in DEXTROSE 5% 100ML 100 ML IV SCH (14:30)
[2017-04-23] MEDS ORDERED: VANCOMYCIN INJ 1,000 MG in SODIUM CHLORIDE 0.9% 250ML 250 ML IV PRN (14:42)
[2017-04-23] MEDS ORDERED: PIPERACILL/TAZOBAC CONSULT ACTIVE PRN (14:45)
[2017-04-23] MEDS ORDERED: VANCOMYCIN INJ 1,500 MG in SODIUM CHLORIDE 0.9% 500ML 500 ML IV ONE (14:45)
[2017-04-23] MEDS ORDERED: PIPERACILL/TAZOBAC IV 3.375 GM in DEXTROSE 5% 100ML IV ONE (14:45)
[2017-04-23 15:14] VITALS: BP 112/74; PULSE 107; TEMP 36.8; O2SAT 95
[2017-04-23] MEDS ORDERED: VANCOMYCIN INJ 2,500 MG in SODIUM CHLORIDE 0.9% 500ML 500 ML IV ONE (15:30)
[2017-04-23] MEDS ORDERED: VANCOMYCIN CONSULT ACTIVE PRN (15:30)
--- NOTE | 2017-04-23 15:31 | Pharmacy Progress Note ---
Pharmacy Abx Initial Consult Date of Service Apr 23, 2017. Pharmacy Dosing Scope Date of Consult: 04/23/17 Consultation requested by: Dr. Rueda Pharmacy is consulted to initiate Vancomycin and zosyn IV dosing therapy, order appropriate labs and adjust drug dose/frequency. Subjective The patient is a 36 year old female admitted on Apr 17, 2017 at 00:24. Objective Height (Feet): 5 Height (Inches): 9.00 Weight (Kilograms): 97.200 Vital Signs (Past 12Hrs) Vital Signs Past 12 Hours Date Time Temp Pulse Resp B/P (MAP) Pulse Ox O2 Delivery O2 Flow Rate FiO2 04/23/17 15:14 36.8 107 20 112/74 (87) 95 Room Air 04/23/17 08:00 96 Room Air 04/23/17 07:09 37.1 104 18 120/72 (88) 96 Room Air Lab Results (24Hrs) Laboratory Tests (24 Hours) Test 04/23/17 06:09 White Blood Count 32.05 K/uL (4.8-10.8) *H Red Blood Count 2.89 M/uL (4.2-5.4) L Hemoglobin 8.8 g/dL (12.0-16.0) L Hematocrit 25.5 % (37-47) L Mean Corpuscular Volume 88.2 fL (80-100) Mean Corpuscular Hemoglobin 30.4 pg (25-34) Mean Corpuscular Hemoglobin Concent 34.5 g/dl (32-36) Platelet Count 299 K/uL (130-400) Mean Platelet Volume 9.0 fL (7.4-10.4) Neutrophils (%) (Auto) 92.5 % Lymphocytes (%) (Auto) 1.6 % Monocytes (%) (Auto) 4.3 % Eosinophils (%) (Auto) 0.2 % Basophils (%) (Auto) 0.1 % Neutrophils # (Auto) 29.64 K/uL (1.4-6.5) H Lymphocytes # (Auto) 0.52 K/uL (1.2-3.4) L Monocytes # (Auto) 1.39 K/uL (0.11-0.59) H Eosinophils # (Auto) 0.05 K/uL (0-0.5) Basophils # (Auto) 0.03 K/uL (0-0.2) Micro Results Date/Time Source Procedure Growth Status 04/21/17 09:28 Blood Blood Culture - Preliminary NO GROWTH TO DATE. Resulted 04/21/17 09:19 Blood Blood Culture - Preliminary NO GROWTH TO DATE. Resulted 04/17/17 00:30 Nasal MRSA DNA Surveillance Screen - Final Specimen Negative for MRSA by DNA Probe Complete 04/20/17 08:15 Urine , Clean Catch Urine Culture - Final Klebsiella Pneumoniae Complete Risk Factors for Resistance * Hospitalization for 48 hours or more within the past 90 days * Current hospitalization > 5 days * Antimicrobial use within the last 90 days: Was on rocephin 04/19-04/23 Assessment & Plan Assessment 36 year old female admitted for DKA, with newly found infected hematoma/ abscess in RLE. WBC=32.5, ANC=29.1 Pt is afebrile. Renal function at baseline Blood cultures from 04/21 have NGTD. Plan Vancomycin and zosyn for treatment of SSI. Vancomycin IV * Loading dose: 2500 mg (25 mg/kg) * Maintenance dose: 1500 mg IV (15 mg/kg) every 8 hours * Goal trough level : 15 to 20 mcg/mL * Trough level ordered for 04/24 @2130 Piperacillin/tazobactam * 3.375 g bolus administered over 30 minutes, then 3.375 g IV extended infusion every 8 hours for CrCl greater than 20 mL/min Pharmacy will continue to follow and will adjust dose/frequency as necessary. Thank you.
--- NOTE | 2017-04-23 15:50 | Discharge Summary ---
Discharge Summary Date of Service Apr 25, 2017. Discharge Summary Admission Date: Apr 17, 2017 at 00:24 Discharge Date: Apr 25, 2017 Discharge Disposition: Acute care facility Principal Diagnosis: Suspected infected hematoma Problems/Secondary Diagnoses: Diabetic ketoacidosis Consultations: Orthopedics Discharge Exam Patient fell, sliding out of her bed yesterday (04/24) afternoon. Reports increased pain in her leg this morning. She also urinated in bed last night and she reports this has happened previously overnight when she fell and hurt her back. She reports having perianal sensation on wiping and she feels she can control her bladder this morning. Date Time Temp Pulse Resp B/P (MAP) Pulse Ox O2 Delivery O2 Flow Rate FiO2 04/25/17 07:54 36.7 98 22 119/75 (90) 99 Room Air 04/25/17 00:41 36.8 103 18 134/83 (100) 99 Room Air 04/25/17 00:00 Room Air 04/24/17 20:00 Room Air 04/24/17 16:32 36.9 119 22 135/83 (100) 100 Room Air 04/24/17 16:30 Room Air 04/24/17 15:41 36.8 100 18 119/75 (90) 96 Reported Home Medications Medications Dose Route/Sig Max Daily Dose Days Date Category Flexeril (Cyclobenzaprine Hcl) 10 Mg Tab 10 Mg PO TID PRN 04/17/17 Reported Mag-Ox (Magnesium Oxide) 400 Mg Tab 1 Tab PO DAILY 30 04/17/17 Reported Xanax (Alprazolam) 0.5 Mg Tab 0.25 Mg PO DAILY PRN 04/17/17 Reported Xanax (Alprazolam) 0.5 Mg Tab 0.5 Mg PO HS PRN 04/17/17 Reported Ventolin Hfa (Albuterol) 200 Puffs/02610 Mcg Aers 2-4 Puffs INH Q6H PRN 04/17/17 Reported Effexor (Venlafaxine Hcl) 75 Mg Tab 100 Mg PO DAILY 04/17/17 Reported Compazine (Prochlorperazine Maleate) 10 Mg Tab 10 Mg PO BID PRN 04/17/17 Reported Protonix (Pantoprazole Sodium) 40 Mg Tab 40 Mg PO BID 04/17/17 Reported Current Inpatient Medications Medications (Trade) Dose Ordered Sig/Tosha Route Start Time Stop Time Status Last Admin Dose Admin Acetaminophen (Tylenol Tab) 650 mg Q4H PRN PO 04/17/17 01:00 05/17/17 00:59 04/24/17 01:33 650 MG Glucose (Glucose 40% Gel) UD PRN PO 04/17/17 01:30 05/17/17 01:29 Glucose (Glucose Chew Tab) 1 tabs UD PRN PO 04/17/17 01:30 05/17/17 01:29 Dextrose (Dextrose 50% 50ML Syringe) 50 ml UD PRN IV 04/17/17 01:30 05/17/17 01:29 Glucagon (Glucagon Inj) 1 mg UD PRN SQ 04/17/17 01:30 05/17/17 01:29 Heparin Sodium (Porcine) (Heparin Sq 5000 Unit/0.5ml) 5,000 unit Q8 SQ 04/17/17 12:00 05/17/17 11:59 Future Hold 04/20/17 21:57 5,000 UNIT Pantoprazole Sodium (Protonix Tab) 40 mg BID PO 04/17/17 09:00 05/17/17 08:59 04/25/17 09:32 40 MG Ondansetron HCl (Zofran Inj) 4 mg Q4H PRN IV 04/17/17 11:15 05/17/17 11:14 04/17/17 11:26 4 MG Potassium Chloride (Klor-Con Tab) 40 meq BID PO 04/17/17 21:00 05/17/17 20:59 04/25/17 09:25 40 MEQ Polyethylene (Miralax Powder Packet) 17 gm DAILY PO 04/20/17 09:00 05/20/17 08:59 04/24/17 08:00 17 GM Insulin Aspart (novoLOG ASPART) SLIDING SCALE G... ACHS SC 04/20/17 16:30 05/20/17 16:29 04/25/17 09:31 14 UNITS Magnesium Oxide (Mag-Ox Tab) 400 mg BID PO 04/21/17 08:00 05/21/17 08:59 04/25/17 09:24 400 MG Insulin Glargine (Lantus Solostar Pen) 30 units BID SC 04/21/17 08:00 05/21/17 07:59 04/25/17 09:31 30 UNITS Multivitamins/ Minerals (Multivitamin W/ Minerals Tab) 1 tab QAM PO 04/22/17 08:00 05/22/17 07:59 04/25/17 09:23 1 TAB Ranitidine HCl (zANTac TAB) 150 mg BID PO 04/22/17 20:00 05/22/17 19:59 04/25/17 09:24 150 MG Sodium Chloride 1,000 ml @ 125 mls/hr Q8H IV 04/23/17 14:30 05/23/17 14:29 04/25/17 09:25 125 MLS/HR Piperacillin Sod/ Tazobactam Sod (Consult) 1 ea UD PRN N/A 04/23/17 14:45 05/23/17 14:44 Piperacillin Sod/ Tazobactam Sod 3.375 gm/Dextrose 115 ml @ 28.75 mls/ hr Q8H IV 04/23/17 22:00 05/03/17 14:59 04/25/17 05:32 28.75 MLS/HR Vancomycin HCl 1500 mg/Sodium Chloride 530 ml @ 200 mls/hr Q8H IV 04/23/17 22:00 05/03/17 15:59 04/25/17 05:32 200 MLS/HR Vancomycin HCl (Consult) 1 ea UD PRN N/A 04/23/17 15:30 05/23/17 15:29 Venlafaxine HCl (effeXOR TAB) 150 mg DAILY PO 04/26/17 08:00 05/26/17 07:59 UNV Baclofen (Lioresal Tab) 10 mg TID PRN PO 04/25/17 09:00 05/25/17 08:59 Oxycodone/ Acetaminophen (Percocet 7.5-325MG Tab) 1 tab Q4H PRN PO 04/25/17 09:00 05/09/17 08:59 04/25/17 06:52 Red Blood Count 2.97, Mean Corpuscular Volume 87.9, Mean Corpuscular Hemoglobin 29.0, Mean Corpuscular Hemoglobin Concent 33.0, Mean Platelet Volume 8.5, Neutrophils (%) (Auto) 90.9, Lymphocytes (%) (Auto) 3.4, Monocytes (%) (Auto) 3.3, Eosinophils (%) (Auto) 0.9, Basophils (%) (Auto) 0.1, Neutrophils # (Auto) 19.97, Lymphocytes # (Auto) 0.74, Monocytes # (Auto) 0.73, Eosinophils # (Auto) 0.19, Basophils # (Auto) 0.03 04/25/17 06:52 Test 04/24/17 20:27 04/24/17 21:24 04/25/17 06:52 Bedside Glucose 99 mg/dl (70-90) Vancomycin Level Trough 18.6 mcg/ml (SEE COMMENT) White Blood Count 21.97 K/uL (4.8-10.8) Red Blood Count 2.97 M/uL (4.2-5.4) Hemoglobin 8.6 g/dL (12.0-16.0) Hematocrit 26.1 % (37-47) Mean Corpuscular Volume 87.9 fL (80-100) Mean Corpuscular Hemoglobin 29.0 pg (25-34) Mean Corpuscular Hemoglobin Concent 33.0 g/dl (32-36) Platelet Count 374 K/uL (130-400) Mean Platelet Volume 8.5 fL (7.4-10.4) Neutrophils (%) (Auto) 90.9 % Lymphocytes (%) (Auto) 3.4 % Monocytes (%) (Auto) 3.3 % Eosinophils (%) (Auto) 0.9 % Basophils (%) (Auto) 0.1 % Neutrophils # (Auto) 19.97 K/uL (1.4-6.5) Lymphocytes # (Auto) 0.74 K/uL (1.2-3.4) Monocytes # (Auto) 0.73 K/uL (0.11-0.59) Eosinophils # (Auto) 0.19 K/uL (0-0.5) Basophils # (Auto) 0.03 K/uL (0-0.2) RDW Standard Deviation 43.9 fL (36.4-46.3) RDW Coefficient of Variation 13.7 % (11.5-14.5) Immature Granulocyte % (Auto) 1.4 % Immature Granulocyte # (Auto) 0.31 K/uL (0.00-0.02) Toxic Granulation 1+ Dohle Bodies 1+ Anion Gap 8.0 mmol/L (3-11) Est Creatinine Clear Calc Drug Dose 177.5 ml/min Estimated GFR () 139.2 Estimated GFR (Non- 120.1 BUN/Creatinine Ratio 7.7 (10-20) Calcium Level 8.2 mg/dl (8.5-10.1) Total Bilirubin 0.6 mg/dl (0.2-1) Aspartate Amino Transf (AST/SGOT) 29 U/L (15-37) Alanine Aminotransferase (ALT/SGPT) 18 U/L (12-78) Alkaline Phosphatase 267 U/L (45-117) Total Protein 4.8 gm/dl (6.4-8.2) Albumin 1.1 gm/dl (3.4-5.0) Globulin 3.7 gm/dl (2.5-4.0) Albumin/Globulin Ratio 0.3 (0.9-2) Prealbumin < 3.0 mg/dl (20-40) RIGHT HIP CT CT DOSE: 647.10 mGy.cm HISTORY: Right hip swelling. ?abscess ?worsening hematoma ?fracture TECHNIQUE: Multiaxial CT images of the . were performed and reformatted in the sagittal and coronal plane without the use of contrast. A dose lowering technique was utilized adhering to the principles of ALARA. COMPARISON: Right hip 04/18/2017. Abdomen and pelvis CT 04/21/2017. FINDINGS: Subcutaneous fat stranding/edema within the right hip. Partially visualized fluid collection within the proximal adductor muscles containing a few punctate foci of gas. This continues to measure approximately 7.3 cm in size. No right hip effusion identified. No fracture or dislocation within the right hip. No bony destruction to suggest osteomyelitis. Mild right external iliac lymphadenopathy is likely reactive. IMPRESSION: Redemonstration of the 7.3 cm intramuscular fluid collection within the proximal adductor muscles of the right lower extremity. This contains a few punctate foci of gas and therefore may represent an abscess. Electronically signed by: Dc Perez M.D. 04/23/2017 10:05 AM Dictated Date/Time: 04/23/2017 9:59 AM R LOWER EXTREMITY WITHOUT CT DOSE: HISTORY: Mass ?femoral fracture ?worsening hematoma ?abscess TECHNIQUE: Multiaxial CT images of the right thigh were performed and reformatted in the sagittal and coronal plane without the use of contrast. A dose lowering technique was utilized adhering to the principles of ALARA. COMPARISON: Ultrasound 04/21/2017 FINDINGS: Generalized compression cellulitis about the upper thigh. This extends to the level of the right knee. Intramuscular collection/hematoma measuring 13 x 8 x 6 cm proximal to mid medial finding. Several small probable bubbles are noted within this structure. Mild generalized muscular edema throughout limited in terms of evaluation due to the absence of intravenous contrast enhancement. No well-defined acute bony abnormality. IMPRESSION: 1. Generalized subcutaneous fat cellulitis throughout the right thigh. 2. Intramuscular collection medial aspect upper right thigh measuring 13 x 8 x 6 cm.. 3. This contains several tiny air bubbles with several small reactive nodes in the right inguinal region. 4. This is in general similar compared to the dimension seen in the patient's prior ultrasound given differences in technique. 5. Although statistically suggestive of hematoma, given the presence of the minute air bubbles the possibility of a superimposed abscess is not excluded. 6. No acute bony abnormality. The above report was generated using voice recognition software. It may contain grammatical, syntax or spelling errors. Electronically signed by: Rambo Xiao M.D. 04/23/2017 10:00 AM Dictated Date/Time: 04/23/2017 9:54 AM BILATERAL LOWER EXTREMITY VENOUS DOPPLER CLINICAL HISTORY: Swollen painful right leg. COMPARISON STUDY: No previous studies for comparison. TECHNIQUE: Sonography of the deep venous system of the bilateral lower extremities was performed. Compression and augmentation were evaluated. FINDINGS: The bilateral common femoral, superficial femoral and popliteal veins were compressible. Augmentation was normal. Flow was shown within the deep calf vessels. Note is made of a 13.2 x 5.3 x 4 cm hypoechoic abnormality within the medial right thigh which may be intramuscular in location. This contains no color flow and suggest a large hematoma. IMPRESSION: 1. No evidence of deep venous thrombus within the bilateral lower extremities. 2. 13.2 x 5.3 x 4 cm hypoechoic abnormality within the proximal medial right thigh which favors a large intramuscular hematoma. 2 month sonographic follow up is recommended to exclude the unlikely possibility of an underlying mass. Electronically signed by: Wilber Smith M.D. 04/21/2017 10:30 AM Dictated Date/Time: 04/21/2017 10:28 AM Review of Systems: Constitutional: No fever, No chills Physical Exam: General Appearance: + mild distress (with right leg pain, pain scale out of proportion to how she looks), + obese, + pertinent finding (non toxic appearing) Respiratory/Chest: normal breath sounds, no respiratory distress, no accessory muscle use Cardiovascular: no murmur, normal peripheral pulses (DP and PT right foot easily palpable), + tachycardia (regular) Abdomen / GI: normal bowel sounds, soft Extremities: + pedal edema (4+ right side compared to left), + pertinent finding (large right leg swelling) Neurologic/Psychiatric: no motor/sensory deficits (neurovasscularly intact in right foot), alert, oriented x 3 Skin: normal color, warm/dry, no rash, + pertinent finding (no subcutaneous ephysema over hematoma site) Hospital Course Elba Isaac is a 36 year old female with type 1 diabetes who presented to [facility] with DKA. She was a direct transfer here on 04/17/17 and placed on IV insulin drip. Her anion gap close and she was transitioned to basal/bolus insulin regimen. Her glucose levels were difficult to control so she was transitioned back to IV insulin but is now stable on basal/bolus. She was complaining of dysuria and right flank pain with increased WBC; therefore urine culture taken and grew pansensitive Klebsiella so was started on ceftriaxone on 04/21/17. Subsequent CT also showed no convincing evidence of cellulitis. She had also fallen onto her right hip on 04/14/17 and XR at [facility] was negative for fracture with repeat XR here also negative. She has chronic pains from fibromyalgia but has been able to mobilize on her hip since then. However she developed increasing leg swelling and pain and subsequent US showed a suspected hematoma. Her WBC has continued to rise therefore orthopedics were consulted due to concern for abscess/infected hematoma. Given recent CT results (see above) and elevated neutrophil count the suspicion is this is infected. Plan is therefore to transfer to another facility that provides interventional radiology. She has been accepted at [facility]. DKA - now resolved - secondary to lack of insulin (ran out) administration prior to arrival for 2- 3 days - Hb A1C 9.1 - will need close endocrinology follow up on d/c Right adductor hematoma, suspected infected - secondary to fall on 04/14 - unlikely compartment syndrome given location or hematoma, normal CK and normal (except pain) examination findings, NV intact distally - since WBC continues to rise suspected infected despite patient appearing non toxic - continue Zosyn and Vancomycin (started 04/23/17) - wbc count improving since then. - heparin prophylaxis stopped 04/19/16, Hgb stable - appreciate orthopedic consult - ?radiology to get a sample of fluid collection - repeat doppler today negative for DVT Leukocytosis - predominately neutrophils with slight left shift - peripheral smear fits infection rather than CML but should be followed up as outpatient if doesn't normalize - concern for infected hematoma as above UTI complicated due to diabetes, less likely pyelonephritis given CT A/P findings - Klebsiella pansensitive - treated with ceftriaxone x3 days started 04/21/17 - now finished - blood cultures no growth to date - lactic acid normal Fall and hip pain - no syncope. to assess gait by PT once pain better controlled. - concern of malingering and narcotic seeking behavior. - Pain mx consulted to evaluate. Ordered lumbar spine xray showing spondolytic changes. added effexor and baclofen - further evaluation while at tertiary care or as outpatient on discharge. Constipation - noted on lumbar spine xray - will need aggressive bowel regimen Hypokalemia / Hypophosphatemia / hypomagnesemia - secondary to diabetes - suspect some intracellular shifts from insulin however degree is more reflective of chronic malnourishment (see below) - monitor daily BMP, Mg, PO Hypoalbuminemia - No proteinuria on UA - ?gastric malabsorption, on Protonix, ?celiacs (since she has type 1 diabetes) - need for outpatient follow up Anemia - suspect due to hematoma, request previous labs - monitor Hgb, stopped heparin and Toradol GERD - Continue Protonix 40mg PO BID VTE Prophylaxis - stopped heparin due to hematoma - TEDs and SCDs Code - Full Disposition - Transfer to [facility] due to need for interventional radiology Total Time Spent: Greater than 30 minutes This includes examination of the patient, discharge planning, medication reconciliation, and communication with other providers. Discharge Instructions Please refer to the electronic Patient Visit Report (Discharge Instructions) for additional information. Additional Copies To Devin Tyler Reviewed: Pt Seen/Exam by Me History continues to have thigh pain. again fell last night. didn't hit her head Constitutional: denies: fever Respiratory: negative: short of breath Cardiovascular: denies chest pain General Appearance: mild distress Respiratory: lungs clear, no respiratory distress Cardiovascular: regular rate, rhythm Gastrointestinal: normal bowel sounds, non tender, soft Extremities: other (right thigh cellulitis improved. generalized swelling still present) Neurologic/Psychiatric: alert, oriented x 3 Assessment/Plan Resident Physician Supervision Note: I independently interviewed and examined the patient and verified the farrell history and physical, reviewed labs and image studies, discussed the case with the resident Dr. Rodriguez and agree with the findings and care plan. Time spent in discharge 40 min
[2017-04-23 16:00] VITALS: O2SAT 95
[2017-04-23] MEDS: OXYCODONE HCL IR 5 MG TAB (IMMEDIATE RELEASE) PO PRN ×2 (16:11→19:46)
[2017-04-23] MEDS: SODIUM CHLORIDE 0.9% 1000ML 1,000 ML IV SCH (16:16)
[2017-04-23] MEDS: ACETAMINOPHEN 325 MG TAB PO PRN (17:46)
--- NOTE | 2017-04-23 19:31 | Family Medicine Progress Note ---
Progress Note Date of Service Apr 23, 2017. Subjective Pt evaluation today including: conversation w/ patient, physical exam, chart review, lab review, review of studies, conversation w/ spa consultant (Dr Santos), review of inpatient medication list Patient reports large increase in her leg pain and swelling today. No fevers or chills. No loss of sensation or movement in her foot or knee. Did not have it elevated yesterday. All Other Systems: Reviewed and Negative Medications Current Inpatient Medications Medications (Trade) Dose Ordered Sig/Tosha Route Start Time Stop Time Status Last Admin Dose Admin Acetaminophen (Tylenol Tab) 650 mg Q4H PRN PO 04/17/17 01:00 05/17/17 00:59 04/23/17 17:46 650 MG Glucose (Glucose 40% Gel) UD PRN PO 04/17/17 01:30 05/17/17 01:29 Glucose (Glucose Chew Tab) 1 tabs UD PRN PO 04/17/17 01:30 05/17/17 01:29 Dextrose (Dextrose 50% 50ML Syringe) 50 ml UD PRN IV 04/17/17 01:30 05/17/17 01:29 Glucagon (Glucagon Inj) 1 mg UD PRN SQ 04/17/17 01:30 05/17/17 01:29 Heparin Sodium (Porcine) (Heparin Sq 5000 Unit/0.5ml) 5,000 unit Q8 SQ 04/17/17 12:00 05/17/17 11:59 Future Hold 04/20/17 21:57 5,000 UNIT Pantoprazole Sodium (Protonix Tab) 40 mg BID PO 04/17/17 09:00 05/17/17 08:59 04/23/17 08:28 40 MG Venlafaxine HCl (effeXOR TAB) 100 mg DAILY PO 04/17/17 09:00 05/17/17 08:59 04/23/17 08:28 100 MG Ondansetron HCl (Zofran Inj) 4 mg Q4H PRN IV 04/17/17 11:15 05/17/17 11:14 04/17/17 11:26 4 MG Potassium Chloride (Klor-Con Tab) 40 meq BID PO 04/17/17 21:00 05/17/17 20:59 04/23/17 08:29 40 MEQ Polyethylene (Miralax Powder Packet) 17 gm DAILY PO 04/20/17 09:00 05/20/17 08:59 04/22/17 08:54 17 GM Insulin Aspart (novoLOG ASPART) SLIDING SCALE G... ACHS SC 04/20/17 16:30 05/20/17 16:29 04/23/17 17:43 8 UNITS Magnesium Oxide (Mag-Ox Tab) 400 mg BID PO 04/21/17 08:00 05/21/17 08:59 04/23/17 08:29 400 MG Insulin Glargine (Lantus Solostar Pen) 30 units BID SC 04/21/17 08:00 05/21/17 07:59 04/23/17 08:39 30 UNITS Ioversol (Optiray 320) 111 ml UD PRN IV 04/21/17 09:45 04/25/17 09:44 Multivitamins/ Minerals (Multivitamin W/ Minerals Tab) 1 tab QAM PO 04/22/17 08:00 05/22/17 07:59 04/23/17 08:29 1 TAB Cyclobenzaprine HCl (Flexeril Tab) 10 mg TID PRN PO 04/21/17 21:30 05/18/17 03:29 04/23/17 08:41 10 MG Ranitidine HCl (zANTac TAB) 150 mg BID PO 04/22/17 20:00 05/22/17 19:59 04/23/17 08:30 150 MG Tramadol HCl (Ultram Tab) 50 mg Q4H PRN PO 04/22/17 19:45 05/22/17 19:44 04/23/17 13:56 50 MG Sodium Chloride 1,000 ml @ 125 mls/hr Q8H IV 04/23/17 14:30 05/23/17 14:29 04/23/17 16:16 125 MLS/HR Piperacillin Sod/ Tazobactam Sod (Consult) 1 ea UD PRN N/A 04/23/17 14:45 05/23/17 14:44 Piperacillin Sod/ Tazobactam Sod 3.375 gm/Dextrose 115 ml @ 28.75 mls/ hr Q8H IV 04/23/17 22:00 05/03/17 14:59 Vancomycin HCl 1500 mg/Sodium Chloride 530 ml @ 200 mls/hr Q8H IV 04/23/17 22:00 05/03/17 15:59 Vancomycin HCl (Consult) 1 ea UD PRN N/A 04/23/17 15:30 05/23/17 15:29 Oxycodone HCl (Roxicodone Immediate Rel Tab) 5 mg Q4H PRN PO 04/23/17 15:30 05/07/17 15:29 04/23/17 16:11 5 MG Objective Vital Signs Current Inpatient Medications Medications (Trade) Dose Ordered Sig/Tosha Route Start Time Stop Time Status Last Admin Dose Admin Acetaminophen (Tylenol Tab) 650 mg Q4H PRN PO 04/17/17 01:00 05/17/17 00:59 04/23/17 17:46 650 MG Glucose (Glucose 40% Gel) UD PRN PO 04/17/17 01:30 05/17/17 01:29 Glucose (Glucose Chew Tab) 1 tabs UD PRN PO 04/17/17 01:30 05/17/17 01:29 Dextrose (Dextrose 50% 50ML Syringe) 50 ml UD PRN IV 04/17/17 01:30 05/17/17 01:29 Glucagon (Glucagon Inj) 1 mg UD PRN SQ 04/17/17 01:30 05/17/17 01:29 Heparin Sodium (Porcine) (Heparin Sq 5000 Unit/0.5ml) 5,000 unit Q8 SQ 04/17/17 12:00 05/17/17 11:59 Future Hold 04/20/17 21:57 5,000 UNIT Pantoprazole Sodium (Protonix Tab) 40 mg BID PO 04/17/17 09:00 05/17/17 08:59 04/23/17 08:28 40 MG Venlafaxine HCl (effeXOR TAB) 100 mg DAILY PO 04/17/17 09:00 05/17/17 08:59 04/23/17 08:28 100 MG Ondansetron HCl (Zofran Inj) 4 mg Q4H PRN IV 04/17/17 11:15 05/17/17 11:14 04/17/17 11:26 4 MG Potassium Chloride (Klor-Con Tab) 40 meq BID PO 04/17/17 21:00 05/17/17 20:59 04/23/17 08:29 40 MEQ Polyethylene (Miralax Powder Packet) 17 gm DAILY PO 04/20/17 09:00 05/20/17 08:59 04/22/17 08:54 17 GM Insulin Aspart (novoLOG ASPART) SLIDING SCALE G... ACHS SC 04/20/17 16:30 05/20/17 16:29 04/23/17 17:43 8 UNITS Magnesium Oxide (Mag-Ox Tab) 400 mg BID PO 04/21/17 08:00 05/21/17 08:59 04/23/17 08:29 400 MG Insulin Glargine (Lantus Solostar Pen) 30 units BID SC 04/21/17 08:00 05/21/17 07:59 04/23/17 08:39 30 UNITS Ioversol (Optiray 320) 111 ml UD PRN IV 04/21/17 09:45 04/25/17 09:44 Multivitamins/ Minerals (Multivitamin W/ Minerals Tab) 1 tab QAM PO 04/22/17 08:00 05/22/17 07:59 04/23/17 08:29 1 TAB Cyclobenzaprine HCl (Flexeril Tab) 10 mg TID PRN PO 04/21/17 21:30 05/18/17 03:29 04/23/17 08:41 10 MG Ranitidine HCl (zANTac TAB) 150 mg BID PO 04/22/17 20:00 05/22/17 19:59 04/23/17 08:30 150 MG Tramadol HCl (Ultram Tab) 50 mg Q4H PRN PO 04/22/17 19:45 05/22/17 19:44 04/23/17 13:56 50 MG Sodium Chloride 1,000 ml @ 125 mls/hr Q8H IV 04/23/17 14:30 05/23/17 14:29 04/23/17 16:16 125 MLS/HR Piperacillin Sod/ Tazobactam Sod (Consult) 1 ea UD PRN N/A 04/23/17 14:45 05/23/17 14:44 Piperacillin Sod/ Tazobactam Sod 3.375 gm/Dextrose 115 ml @ 28.75 mls/ hr Q8H IV 04/23/17 22:00 05/03/17 14:59 Vancomycin HCl 1500 mg/Sodium Chloride 530 ml @ 200 mls/hr Q8H IV 04/23/17 22:00 05/03/17 15:59 Vancomycin HCl (Consult) 1 ea UD PRN N/A 04/23/17 15:30 05/23/17 15:29 Oxycodone HCl (Roxicodone Immediate Rel Tab) 5 mg Q4H PRN PO 04/23/17 15:30 05/07/17 15:29 04/23/17 16:11 5 MG Physical Exam General Appearance: + mild distress (from pain, stated pain out of proportion of how patient appears), + obese Respiratory/Chest: lungs clear, normal breath sounds, no respiratory distress, no accessory muscle use Cardiovascular: no murmur, + tachycardia Abdomen: normal bowel sounds, soft, + tenderness (epigastric without guarding or rebound) Extremities: no calf tenderness Neurologic/Psychiatric: alert Skin: normal color, warm/dry, no rash Laboratory Results 04/23/17 06:09 Red Blood Count 2.89, Mean Corpuscular Volume 88.2, Mean Corpuscular Hemoglobin 30.4, Mean Corpuscular Hemoglobin Concent 34.5, Mean Platelet Volume 9.0, Neutrophils (%) (Auto) 92.5, Lymphocytes (%) (Auto) 1.6, Monocytes (%) (Auto) 4.3, Eosinophils (%) (Auto) 0.2, Basophils (%) (Auto) 0.1, Neutrophils # (Auto) 29.64, Lymphocytes # (Auto) 0.52, Monocytes # (Auto) 1.39, Eosinophils # (Auto) 0.05, Basophils # (Auto) 0.03 04/23/17 06:09 Test 04/23/17 06:09 04/23/17 16:31 White Blood Count 32.05 K/uL (4.8-10.8) Red Blood Count 2.89 M/uL (4.2-5.4) Hemoglobin 8.8 g/dL (12.0-16.0) Hematocrit 25.5 % (37-47) Mean Corpuscular Volume 88.2 fL (80-100) Mean Corpuscular Hemoglobin 30.4 pg (25-34) Mean Corpuscular Hemoglobin Concent 34.5 g/dl (32-36) Platelet Count 299 K/uL (130-400) Mean Platelet Volume 9.0 fL (7.4-10.4) Neutrophils (%) (Auto) 92.5 % Lymphocytes (%) (Auto) 1.6 % Monocytes (%) (Auto) 4.3 % Eosinophils (%) (Auto) 0.2 % Basophils (%) (Auto) 0.1 % Neutrophils # (Auto) 29.64 K/uL (1.4-6.5) Lymphocytes # (Auto) 0.52 K/uL (1.2-3.4) Monocytes # (Auto) 1.39 K/uL (0.11-0.59) Eosinophils # (Auto) 0.05 K/uL (0-0.5) Basophils # (Auto) 0.03 K/uL (0-0.2) RDW Standard Deviation 43.2 fL (36.4-46.3) RDW Coefficient of Variation 13.4 % (11.5-14.5) Immature Granulocyte % (Auto) 1.3 % Immature Granulocyte # (Auto) 0.42 K/uL (0.00-0.02) Toxic Granulation 2+ Toxic Vacuolation 1+ Dohle Bodies 1+ Red Blood Cell Morphology Unremarkable Peripheral Blood Smear Path Consult Anion Gap 10.0 mmol/L (3-11) Est Creatinine Clear Calc Drug Dose 237.7 ml/min Estimated GFR () > 150.0 Estimated GFR (Non- 133.9 BUN/Creatinine Ratio 19.3 (10-20) Calcium Level 8.2 mg/dl (8.5-10.1) Phosphorus Level 3.5 mg/dl (2.5-4.9) Magnesium Level 1.5 mg/dl (1.8-2.4) Total Bilirubin 0.7 mg/dl (0.2-1) Aspartate Amino Transf (AST/SGOT) 28 U/L (15-37) Alanine Aminotransferase (ALT/SGPT) 21 U/L (12-78) Alkaline Phosphatase 237 U/L (45-117) Total Protein 4.9 gm/dl (6.4-8.2) Albumin 1.3 gm/dl (3.4-5.0) Globulin 3.6 gm/dl (2.5-4.0) Albumin/Globulin Ratio 0.4 (0.9-2) Thyroid Stimulating Hormone (TSH) 3.490 uIu/ml (0.300-4.500) Free Thyroxine 1.45 ng/dl (0.80-1.60) Bedside Glucose 127 mg/dl (70-90) Assessment and Plan 36 yo F w/ h/o Diabetes, Fibromyalgia admission for DKA (now resolved). Fell on her right hip on 14 April and hip XR were normal and she has been able to mobilize on her hip since, however she has had increasingly leg swelling and pain and subsequent US showed a suspected hematoma. DKA - now resolved - secondary to lack of insulin (ran out) administration prior to arrival for 2- 3 days - Anion Gap has closed, Hb A1C 9.1 - Manage with basal bolus insulin - will need close endocrinology follow up on d/c Right adductor hematoma, suspected infected - secondary to fall - No compartment syndrome - since WBC continues to rise suspected infected despite patient appearing non toxic and lack of examination findings - switch antibiotics to Zosyn and Vancomycin - appreciate orthopedic consult - spoke to radiology to get a sample of fluid collection - recommend difficult access and recommends transfer to tertiary care referral. [place] [facility] [place] Leukocytosis - predominately neutrophils with slight left shift - peripheral smear ordered to rule out other pathology such as CML - concern for infected hematoma as above UTI complicated due to diabetes, less likely pyelonephritis given CT A/P findings - Klebsiella pansensitive - treated with ceftriaxone x3 days started 04/21/17 ( now switching to Zosyn/Vancomycin - blood cultures no growth to date - lactic acid normal Hypokalemia / Hypophosphatemia / hypomagnesemia - secondary to diabetes - suspect some intracellular shifts as insulin is given however degree is more reflective of chronic malnourishment (see below) - monitor daily BMP, Mg, PO Hypoalbuminemia - No proteinuria on UA - ?gastric malabsorption, on Protonix, ?celiacs (since she has type 1 diabetes) Anemia - suspect due to hematoma, request previous labs - monitor Hgb, stop heparin and Toradol GERD - Continue Protonix 40mg PO BID VTE Prophylaxis - stopped heparin due to hematoma - TEDs and SCD Code - Full Disposition - Continue med/surg as not septic, plan for transfer when bed available Resident Tracking Resident Involvement: Resident Care Provided Care Provided: Adult Hospital Medicine Reviewed: Pt Seen/Exam by Me History thigh pain still present. 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 Rodriguez and agree with the findings and care plan.
[2017-04-23] MEDS: VANCOMYCIN INJ 1,500 MG in SODIUM CHLORIDE 0.9% 500ML 500 ML IV SCH (21:47)
[2017-04-23] MEDS: PIPERACILL/TAZOBAC IV 3.375 GM in DEXTROSE 5% 100ML IV SCH (21:47)
[2017-04-23 23:10] VITALS: BP 137/83; PULSE 87; TEMP 36.6; O2SAT 95
[2017-04-24] MEDS: SODIUM CHLORIDE 0.9% 1000ML 1,000 ML IV SCH ×4 (00:15→23:44)
[2017-04-24] MEDS: OXYCODONE HCL IR 5 MG TAB (IMMEDIATE RELEASE) PO PRN ×5 (00:15→20:11)
[2017-04-24] MEDS: ACETAMINOPHEN 325 MG TAB PO PRN (01:33)
[2017-04-24] MEDS: TRAMADOL HCL 50 MG TAB PO PRN ×2 (02:24→15:55)
[2017-04-24] MEDS: PIPERACILL/TAZOBAC IV 3.375 GM in DEXTROSE 5% 100ML IV SCH ×3 (05:18→21:53)
[2017-04-24] MEDS: VANCOMYCIN INJ 1,500 MG in SODIUM CHLORIDE 0.9% 500ML 500 ML IV SCH ×3 (06:53→21:53)
[2017-04-24 07:17] VITALS: BP 110/71; PULSE 91; TEMP 36.7; O2SAT 93
[2017-04-24 08:00] VITALS: O2SAT 93
[2017-04-24] MEDS: POLYETHYLENE (MIRALAX) 17 GM PACK PO SCH (08:00)
[2017-04-24 08:13] LABS: HEMATOCRIT 24.1 % (37-47); HEMOGLOBIN 8.4 g/dL (12.0-16.0); MEAN CORPUSCULAR HEMOGLOBIN 30.7 pg (25-34); MEAN CORPUSCULAR HGB CONC 34.9 g/dl (32-36); PLATELET COUNT 308 K/uL (130-400); RED CELL DISTRIBUTION WIDTH CV 13.4 % (11.5-14.5); RED CELL DISTRIBUTION WIDTH SD 43.4 fL (36.4-46.3); WHITE BLOOD COUNT 24.77 K/uL (4.8-10.8)
[2017-04-24 08:37] LABS: BASO % 0.1 %; BASO ABS # 0.03 K/uL (0-0.2); EOS % 0.6 %; EOS ABS # 0.15 K/uL (0-0.5); IG# 0.27 K/uL (0.00-0.02); LYMPH % 2.4 %; MONO % 3.8 %; MONO ABS # 0.94 K/uL (0.11-0.59); NEUT ABS # 22.78 K/uL (1.4-6.5)
[2017-04-24 08:48] LABS: ALBUMIN 1.1 gm/dl (3.4-5.0); CALCIUM 7.8 mg/dl (8.5-10.1); CREATININE 0.53 mg/dl (0.60-1.20); PHOSPHORUS 3.6 mg/dl (2.5-4.9); POTASSIUM 4.1 mmol/L (3.5-5.1); TOTAL PROTEIN 4.7 gm/dl (6.4-8.2)
[2017-04-24] MEDS: MAGNESIUM OXIDE 400 MG TAB PO SCH ×2 (08:54→20:13)
[2017-04-24] MEDS: VENLAFAXINE HCL 50 MG TAB PO SCH (08:55)
[2017-04-24] MEDS: CEROVITE ADV FORMULA TAB PO SCH (08:55)
[2017-04-24] MEDS: POTASSIUM CHLORIDE 20 MEQ TABCR PO SCH ×2 (08:56→20:15)
[2017-04-24] MEDS: RANITIDINE HCL 150 MG TAB PO SCH ×2 (08:56→20:14)
[2017-04-24] MEDS: PANTOprazole SOD 40 MG TAB PO SCH ×2 (08:57→20:12)
[2017-04-24] MEDS: CYCLOBENZAPRINE HCL 10 MG TAB PO PRN (08:57)
[2017-04-24] MEDS: INSULIN ASPART 100 UNITS/ML 3 ML PEN SC SCH ×4 (08:59→21:51)
[2017-04-24] MEDS: INSULIN GLARGINE SOLOSTAR 100 UNITS/ML 3 ML PEN SC SCH ×2 (09:00→21:50)
--- NOTE | 2017-04-24 11:29 | Family Medicine Progress Note ---
Progress Note Date of Service Apr 24, 2017. Subjective Pt evaluation today including: conversation w/ patient, physical exam, chart review, lab review, review of studies, review of inpatient medication list Pain: 7/10 Feels much the same as previous day. Leg remains swollen and painful. Denies any fevers or chills. Constitutional: No fever, No chills All Other Systems: Reviewed and Negative Medications Current Inpatient Medications Medications (Trade) Dose Ordered Sig/Tosha Route Start Time Stop Time Status Last Admin Dose Admin Acetaminophen (Tylenol Tab) 650 mg Q4H PRN PO 04/17/17 01:00 05/17/17 00:59 04/24/17 01:33 650 MG Glucose (Glucose 40% Gel) UD PRN PO 04/17/17 01:30 05/17/17 01:29 Glucose (Glucose Chew Tab) 1 tabs UD PRN PO 04/17/17 01:30 05/17/17 01:29 Dextrose (Dextrose 50% 50ML Syringe) 50 ml UD PRN IV 04/17/17 01:30 05/17/17 01:29 Glucagon (Glucagon Inj) 1 mg UD PRN SQ 04/17/17 01:30 05/17/17 01:29 Heparin Sodium (Porcine) (Heparin Sq 5000 Unit/0.5ml) 5,000 unit Q8 SQ 04/17/17 12:00 05/17/17 11:59 Future Hold 04/20/17 21:57 5,000 UNIT Pantoprazole Sodium (Protonix Tab) 40 mg BID PO 04/17/17 09:00 05/17/17 08:59 04/24/17 08:57 40 MG Venlafaxine HCl (effeXOR TAB) 100 mg DAILY PO 04/17/17 09:00 05/17/17 08:59 04/24/17 08:55 100 MG Ondansetron HCl (Zofran Inj) 4 mg Q4H PRN IV 04/17/17 11:15 05/17/17 11:14 04/17/17 11:26 4 MG Potassium Chloride (Klor-Con Tab) 40 meq BID PO 04/17/17 21:00 05/17/17 20:59 04/24/17 08:56 40 MEQ Polyethylene (Miralax Powder Packet) 17 gm DAILY PO 04/20/17 09:00 05/20/17 08:59 04/24/17 08:00 17 GM Insulin Aspart (novoLOG ASPART) SLIDING SCALE G... ACHS SC 04/20/17 16:30 05/20/17 16:29 04/24/17 08:59 23 UNITS Magnesium Oxide (Mag-Ox Tab) 400 mg BID PO 04/21/17 08:00 05/21/17 08:59 04/24/17 08:54 400 MG Insulin Glargine (Lantus Solostar Pen) 30 units BID SC 04/21/17 08:00 05/21/17 07:59 04/24/17 09:00 30 UNITS Ioversol (Optiray 320) 111 ml UD PRN IV 04/21/17 09:45 04/25/17 09:44 Multivitamins/ Minerals (Multivitamin W/ Minerals Tab) 1 tab QAM PO 04/22/17 08:00 05/22/17 07:59 04/24/17 08:55 1 TAB Cyclobenzaprine HCl (Flexeril Tab) 10 mg TID PRN PO 04/21/17 21:30 05/18/17 03:29 04/24/17 08:57 10 MG Ranitidine HCl (zANTac TAB) 150 mg BID PO 04/22/17 20:00 05/22/17 19:59 04/24/17 08:56 150 MG Tramadol HCl (Ultram Tab) 50 mg Q4H PRN PO 04/22/17 19:45 05/22/17 19:44 04/24/17 02:24 50 MG Sodium Chloride 1,000 ml @ 125 mls/hr Q8H IV 04/23/17 14:30 05/23/17 14:29 04/24/17 06:43 125 MLS/HR Piperacillin Sod/ Tazobactam Sod (Consult) 1 ea UD PRN N/A 04/23/17 14:45 05/23/17 14:44 Piperacillin Sod/ Tazobactam Sod 3.375 gm/Dextrose 115 ml @ 28.75 mls/ hr Q8H IV 04/23/17 22:00 05/03/17 14:59 04/24/17 05:18 28.75 MLS/HR Vancomycin HCl 1500 mg/Sodium Chloride 530 ml @ 200 mls/hr Q8H IV 04/23/17 22:00 05/03/17 15:59 04/24/17 06:53 200 MLS/HR Vancomycin HCl (Consult) 1 ea UD PRN N/A 04/23/17 15:30 05/23/17 15:29 Oxycodone HCl (Roxicodone Immediate Rel Tab) 5 mg Q4H PRN PO 04/23/17 15:30 05/07/17 15:29 04/24/17 09:02 5 MG Objective Vital Signs Date Time Temp Pulse Resp B/P (MAP) Pulse Ox O2 Delivery O2 Flow Rate FiO2 04/24/17 08:00 93 Room Air 04/24/17 07:17 36.7 91 18 110/71 (84) 93 Room Air 04/24/17 00:30 Room Air 04/23/17 23:10 36.6 87 18 137/83 (101) 95 Room Air 04/23/17 16:00 95 Room Air 04/23/17 15:14 36.8 107 20 112/74 (87) 95 Room Air Physical Exam General Appearance: + mild distress (from leg pain), + obese ENT: pharynx normal Neck: trachea midline Respiratory/Chest: lungs clear, normal breath sounds, no respiratory distress, no accessory muscle use Cardiovascular: regular rate, rhythm, no murmur Abdomen: normal bowel sounds, non tender, soft Extremities: normal capillary refill, + pedal edema (4+ right sidey up to abdomen), + pertinent finding (complete right leg painful to palpation without overlying erythema) Neurologic/Psychiatric: no motor/sensory deficits (neurovascularly intact distally right foot), alert, oriented x 3 Skin: normal color, warm/dry, no rash Laboratory Results 04/24/17 07:54 Red Blood Count 2.74, Mean Corpuscular Volume 88.0, Mean Corpuscular Hemoglobin 30.7, Mean Corpuscular Hemoglobin Concent 34.9, Mean Platelet Volume 9.0, Neutrophils (%) (Auto) 92.0, Lymphocytes (%) (Auto) 2.4, Monocytes (%) (Auto) 3.8, Eosinophils (%) (Auto) 0.6, Basophils (%) (Auto) 0.1, Neutrophils # (Auto) 22.78, Lymphocytes # (Auto) 0.60, Monocytes # (Auto) 0.94, Eosinophils # (Auto) 0.15, Basophils # (Auto) 0.03 04/24/17 07:54 Test 04/23/17 19:54 04/24/17 07:54 Bedside Glucose 164 mg/dl (70-90) White Blood Count 24.77 K/uL (4.8-10.8) Red Blood Count 2.74 M/uL (4.2-5.4) Hemoglobin 8.4 g/dL (12.0-16.0) Hematocrit 24.1 % (37-47) Mean Corpuscular Volume 88.0 fL (80-100) Mean Corpuscular Hemoglobin 30.7 pg (25-34) Mean Corpuscular Hemoglobin Concent 34.9 g/dl (32-36) Platelet Count 308 K/uL (130-400) Mean Platelet Volume 9.0 fL (7.4-10.4) Neutrophils (%) (Auto) 92.0 % Lymphocytes (%) (Auto) 2.4 % Monocytes (%) (Auto) 3.8 % Eosinophils (%) (Auto) 0.6 % Basophils (%) (Auto) 0.1 % Neutrophils # (Auto) 22.78 K/uL (1.4-6.5) Lymphocytes # (Auto) 0.60 K/uL (1.2-3.4) Monocytes # (Auto) 0.94 K/uL (0.11-0.59) Eosinophils # (Auto) 0.15 K/uL (0-0.5) Basophils # (Auto) 0.03 K/uL (0-0.2) RDW Standard Deviation 43.4 fL (36.4-46.3) RDW Coefficient of Variation 13.4 % (11.5-14.5) Immature Granulocyte % (Auto) 1.1 % Immature Granulocyte # (Auto) 0.27 K/uL (0.00-0.02) Toxic Granulation 2+ Dohle Bodies 1+ Anion Gap 8.0 mmol/L (3-11) Est Creatinine Clear Calc Drug Dose 190.9 ml/min Estimated GFR () 142.6 Estimated GFR (Non- 123.0 BUN/Creatinine Ratio 12.3 (10-20) Calcium Level 7.8 mg/dl (8.5-10.1) Phosphorus Level 3.6 mg/dl (2.5-4.9) Magnesium Level 1.6 mg/dl (1.8-2.4) Total Bilirubin 0.7 mg/dl (0.2-1) Aspartate Amino Transf (AST/SGOT) 20 U/L (15-37) Alanine Aminotransferase (ALT/SGPT) 17 U/L (12-78) Alkaline Phosphatase 239 U/L (45-117) Total Protein 4.7 gm/dl (6.4-8.2) Albumin 1.1 gm/dl (3.4-5.0) Globulin 3.6 gm/dl (2.5-4.0) Albumin/Globulin Ratio 0.3 (0.9-2) Assessment and Plan 36 yo F w/ h/o Type 1 diabetes, Fibromyalgia admission for DKA (now resolved). Fell on her right hip on 14 April and hip XR was normal and she has been able to mobilize on her hip since, however she has had increasingly leg swelling and pain and subsequent US/CT showed a suspected hematoma/abscess. DKA - now resolved - secondary to lack of insulin (ran out) administration prior to arrival for 2- 3 days - Anion Gap has closed, Hb A1C 9.1 - Manage with basal bolus insulin - will need close endocrinology follow up on d/c Right adductor hematoma, suspected infected - secondary to fall - unlikely compartment syndrome given location or hematoma, normal CK and normal (except pain) examination findings, NV intact distally - WBC trending down today after Zosyn and Vancomycin started 04/24/16 - heparin prophylaxis stopped 04/19/16, Hgb trending down, type and screen ordered - appreciate orthopedic consult - ?radiology to get a sample of fluid collection , unable to do here therefore she is set up for transfer to [place] when bed available Leukocytosis - predominately neutrophils with slight left shift - Improving and given peripheral smear results this is most likely a leukemoid reaction - tired contacting PCP > 4 times today for previous labs but engaged or not answered on each occasion. - concern for infected hematoma as above - should be followed up outpatient to check resolved UTI complicated due to diabetes, less likely pyelonephritis given CT A/P findings - Klebsiella pansensitive - treated with ceftriaxone x3 days started 04/21/17 - blood cultures no growth to date Hypokalemia / Hypophosphatemia / hypomagnesemia - secondary to diabetes - suspect some intracellular shifts as insulin is given however degree is more reflective of chronic malnourishment (see below) - monitor daily BMP, Mg, PO and replace as necessary Hypoalbuminemia - No proteinuria on UA - ?gastric malabsorption, on Protonix, ?celiacs (since she has type 1 diabetes) - follow up outpatient - prealbumin added to labs tomorrow to assess for chronic malnutrition Anemia - suspect due to hematoma, request previous labs, trend is down therefore will get type and screen - monitor Hgb, stop heparin and Toradol GERD - Continue Protonix 40mg PO BID Fibromyalgia - pain severity greater than patient appears - continue venlafaxine - PDMP reviewed, patient on chronic alprazolam since October 2015 (not requested by patient). Previous intermittent opiate use before this which patient reported to me previous was before her cholecystectomy - I would advise against further IV opiates as at risk of dependance. Her leg certainly is legitamitely painful however so will continue with oxycodone but also consult pain management. VTE Prophylaxis - stopped heparin due to hematoma - TEDs and SCD Code - Full Disposition - Continue med/surg as not septic, plan for transfer when bed available Resident Tracking Resident Involvement: Resident Care Provided Care Provided: Adult Hospital Medicine Reviewed: Pt Seen/Exam by Me History thigh pain continues. less red. overall feeling better today compared to yesterday Constitutional: denies: fever Respiratory: negative: short of breath Cardiovascular: denies chest pain General Appearance: no apparent distress Respiratory: lungs clear, no respiratory distress Cardiovascular: regular rate, rhythm Extremities: other (thigh - medial area of erythema improving) Neurologic/Psychiatric: alert, oriented x 3 Skin Characteristics: warm/dry Assessment/Plan Resident Physician Supervision Note: I independently interviewed and examined the patient and verified the farrell history and physical, reviewed labs and image studies, discussed the case with the resident Dr. Rodriguez and agree with the findings and care plan.
[2017-04-24 15:41] VITALS: BP 119/75; PULSE 100; TEMP 36.8; O2SAT 96
[2017-04-24 16:32] VITALS: BP 135/83; PULSE 119; TEMP 36.9; O2SAT 100
[2017-04-24] MEDS ORDERED: OXYCODONE HCL IR 5 MG TAB (IMMEDIATE RELEASE) PO ONE (16:50)
[2017-04-24] MEDS ORDERED: VANCOMYCIN TROUGH ONE (21:30)
--- NOTE | 2017-04-24 22:23 | Pharmacy Progress Note ---
Pharmacy Abx Dose Short Note Date of Service Apr 24, 2017. Assessment & Plan Assessment 36 year old female receiving VANCOMYCIN/ZOSYN for treatment of infected hematoma Day # 2 of antimicrobial therapy. Plan Vancomycin * Trough level of 18.6 mcg/mL is therapeutic. * Continue dose of vancomycin 1500 mg IV every 8 hours * Goal trough level for hematoma infection : 15 to 20 mcg/mL * Trough ordered for: 04/26/17 to ensure no accumulation Pharmacy will continue to follow and will adjust dose/frequency as necessary. Thank you.
[2017-04-25] MEDS: OXYCODONE HCL IR 5 MG TAB (IMMEDIATE RELEASE) PO PRN ×2 (00:09→04:51)
[2017-04-25 00:41] VITALS: BP 134/83; PULSE 103; TEMP 36.8; O2SAT 99
[2017-04-25] MEDS: CYCLOBENZAPRINE HCL 10 MG TAB PO PRN (00:56)
[2017-04-25] MEDS: PIPERACILL/TAZOBAC IV 3.375 GM in DEXTROSE 5% 100ML IV SCH ×2 (05:32→13:36)
[2017-04-25] MEDS: VANCOMYCIN INJ 1,500 MG in SODIUM CHLORIDE 0.9% 500ML 500 ML IV SCH ×2 (05:32→13:36)
[2017-04-25 07:04] LABS: BASO % 0.1 %; BASO ABS # 0.03 K/uL (0-0.2); EOS % 0.9 %; EOS ABS # 0.19 K/uL (0-0.5); HEMATOCRIT 26.1 % (37-47); HEMOGLOBIN 8.6 g/dL (12.0-16.0); IG# 0.31 K/uL (0.00-0.02); LYMPH % 3.4 %; LYMPH ABS # 0.74 K/uL (1.2-3.4); MEAN CELL VOLUME 87.9 fL (80-100); MEAN PLATELET VOLUME 8.5 fL (7.4-10.4); MONO % 3.3 %; MONO ABS # 0.73 K/uL (0.11-0.59); NEUT % 90.9 %; NEUT ABS # 19.97 K/uL (1.4-6.5); PLATELET COUNT 374 K/uL (130-400); RED CELL DISTRIBUTION WIDTH CV 13.7 % (11.5-14.5); RED CELL DISTRIBUTION WIDTH SD 43.9 fL (36.4-46.3); WHITE BLOOD COUNT 21.97 K/uL (4.8-10.8)
[2017-04-25 07:41] LABS: ALBUMIN 1.1 gm/dl (3.4-5.0); CALCIUM 8.2 mg/dl (8.5-10.1); CREATININE 0.57 mg/dl (0.60-1.20); POTASSIUM 3.6 mmol/L (3.5-5.1)
[2017-04-25 07:44] LABS: TOTAL PROTEIN 4.8 gm/dl (6.4-8.2)
[2017-04-25 07:54] VITALS: BP 119/75; PULSE 98; TEMP 36.7; O2SAT 99
[2017-04-25 08:00] VITALS: O2SAT 99
[2017-04-25] MEDS: POLYETHYLENE (MIRALAX) 17 GM PACK PO SCH (08:00)
[2017-04-25] MEDS: CEROVITE ADV FORMULA TAB PO SCH (09:23)
[2017-04-25] MEDS: MAGNESIUM OXIDE 400 MG TAB PO SCH (09:24)
[2017-04-25] MEDS: RANITIDINE HCL 150 MG TAB PO SCH (09:24)
[2017-04-25] MEDS: SODIUM CHLORIDE 0.9% 1000ML 1,000 ML IV SCH ×2 (09:25→13:42)
[2017-04-25] MEDS: POTASSIUM CHLORIDE 20 MEQ TABCR PO SCH (09:25)
[2017-04-25] MEDS: INSULIN GLARGINE SOLOSTAR 100 UNITS/ML 3 ML PEN SC SCH (09:31)
[2017-04-25] MEDS: INSULIN ASPART 100 UNITS/ML 3 ML PEN SC SCH ×2 (09:31→13:41)
[2017-04-25] MEDS: PANTOprazole SOD 40 MG TAB PO SCH (09:32)
--- NOTE | 2017-04-25 09:48 | Pain Management Consultation ---
Pain Management Consultation Date of Consultation Apr 25, 2017. Reason for Consultation Medical management of pain Pain Location 1 - 2 - History 36-year-old female who sustained a fall on 04/14/2017 at approximately 4 in the morning. She reports that she was not intoxicated but was sleeping and walked in the dark without glasses and tripped sustaining a fall onto her right hip and thigh. She reports that she presented to [facility] and was subsequently transferred here for further care of DKA. Pain management was consult for assistance with increasing pain over the right thigh. She reports that her pain is constant and ranging between 7 and 10 out of 10 worst with movement. She characterizes the pain as aching cramping and intense. She denies any bowel incontinence but does admit that she's had difficulty with bedwetting due to the inability to move quickly to the restroom. She denies any viraj urinary incontinence. She remarks that she has tenderness over the entire right lower lumbar spine as well as hip girdle and thigh globally to the level of the knee. A transfer to tertiary care center is underway due to inability to obtain a sample of the possible hematoma versus abscess in her right thigh. Past Medical/Surgical History (1) HTN (hypertension) (2) Fibromyalgia (3) DKA, type 2 (4) GERD (gastroesophageal reflux disease) (5) Anxiety (6) Depression (7) Peripheral neuropathy (8) Abdominal pain Family History Family Hx Review: history personally reviewed by me Social / Work History Smoking Status: Current every day smoker (1/2ppd x 13 yr) Smokeless Tobacco Use: No Alcohol Use: occasionally (1-2 wine /mo) Drug Use: none (pt adamantly denies illicit substance usage) Marital Status: single Housing Status: lives with family (lives with mom) Occupation: disabled Allergies Coded Allergies: Lisinopril (Verified Allergy, Unknown, hives, 04/17/17) Sulfamethoxazole w/Trimethoprim (Verified Allergy, Unknown, hives, 04/17/17) Medications Current Inpatient Medications Medications (Trade) Dose Ordered Sig/Tosha Route Start Time Stop Time Status Last Admin Dose Admin Acetaminophen (Tylenol Tab) 650 mg Q4H PRN PO 04/17/17 01:00 05/17/17 00:59 04/24/17 01:33 650 MG Glucose (Glucose 40% Gel) UD PRN PO 04/17/17 01:30 05/17/17 01:29 Glucose (Glucose Chew Tab) 1 tabs UD PRN PO 04/17/17 01:30 05/17/17 01:29 Dextrose (Dextrose 50% 50ML Syringe) 50 ml UD PRN IV 04/17/17 01:30 05/17/17 01:29 Glucagon (Glucagon Inj) 1 mg UD PRN SQ 04/17/17 01:30 05/17/17 01:29 Heparin Sodium (Porcine) (Heparin Sq 5000 Unit/0.5ml) 5,000 unit Q8 SQ 04/17/17 12:00 05/17/17 11:59 Future Hold 04/20/17 21:57 5,000 UNIT Pantoprazole Sodium (Protonix Tab) 40 mg BID PO 04/17/17 09:00 05/17/17 08:59 04/24/17 20:12 40 MG Ondansetron HCl (Zofran Inj) 4 mg Q4H PRN IV 04/17/17 11:15 05/17/17 11:14 04/17/17 11:26 4 MG Potassium Chloride (Klor-Con Tab) 40 meq BID PO 04/17/17 21:00 05/17/17 20:59 04/24/17 20:15 40 MEQ Polyethylene (Miralax Powder Packet) 17 gm DAILY PO 04/20/17 09:00 05/20/17 08:59 04/24/17 08:00 17 GM Insulin Aspart (novoLOG ASPART) SLIDING SCALE G... ACHS SC 04/20/17 16:30 05/20/17 16:29 04/24/17 18:17 17 UNITS Magnesium Oxide (Mag-Ox Tab) 400 mg BID PO 04/21/17 08:00 05/21/17 08:59 04/24/17 20:13 400 MG Insulin Glargine (Lantus Solostar Pen) 30 units BID SC 04/21/17 08:00 05/21/17 07:59 04/24/17 21:50 30 UNITS Ioversol (Optiray 320) 111 ml UD PRN IV 04/21/17 09:45 04/25/17 09:44 Multivitamins/ Minerals (Multivitamin W/ Minerals Tab) 1 tab QAM PO 04/22/17 08:00 05/22/17 07:59 04/24/17 08:55 1 TAB Ranitidine HCl (zANTac TAB) 150 mg BID PO 04/22/17 20:00 05/22/17 19:59 04/24/17 20:14 150 MG Sodium Chloride 1,000 ml @ 125 mls/hr Q8H IV 04/23/17 14:30 05/23/17 14:29 04/24/17 23:44 125 MLS/HR Piperacillin Sod/ Tazobactam Sod (Consult) 1 ea UD PRN N/A 04/23/17 14:45 05/23/17 14:44 Piperacillin Sod/ Tazobactam Sod 3.375 gm/Dextrose 115 ml @ 28.75 mls/ hr Q8H IV 04/23/17 22:00 05/03/17 14:59 04/25/17 05:32 28.75 MLS/HR Vancomycin HCl 1500 mg/Sodium Chloride 530 ml @ 200 mls/hr Q8H IV 04/23/17 22:00 05/03/17 15:59 04/25/17 05:32 200 MLS/HR Vancomycin HCl (Consult) 1 ea UD PRN N/A 04/23/17 15:30 05/23/17 15:29 Venlafaxine HCl (effeXOR TAB) 150 mg DAILY PO 04/26/17 08:00 05/26/17 07:59 UNV Baclofen (Lioresal Tab) 10 mg TID PRN PO 04/25/17 09:00 05/25/17 08:59 UNV Oxycodone/ Acetaminophen (Percocet 7.5-325MG Tab) 1 tab Q4H PRN PO 04/25/17 09:00 05/09/17 08:59 UNV Review of Systems 10 point review of systems was otherwise negative aside from HPI Physical Exam Height & Weight: Height 5 feet, 9.00 inches. Weight 104.700 (Kilograms) 230 (Pounds) Last Vital Signs Documentation Date Time Temp Pulse Resp B/P (MAP) Pulse Ox O2 Delivery O2 Flow Rate FiO2 04/25/17 07:54 36.7 98 22 119/75 (90) 99 Room Air 04/18/17 12:11 99.0 Exam: GENERAL: 36-year-old female who is awake, alert and oriented. Appears obese. She has pain with log rolling in bed PSYCHIATRIC: Demonstrates normal and clear sensorium. Mood and affect are appropriate. Short-term and long-term memory is intact. HEAD AND NECK: No obvious trauma. Demonstrates full range of motion of the cervical spine. No lymphadenopathy is noted. Trachea midline. No thyromegaly noted. EARS, EYES AND NOSE: Mucous membranes pink and moist. No mucosal lesions noted. Tongue midline. LUNGS: No audible wheezes or rhonchi. Normal chest excursion. BREASTS: Deferred. CARDIAC: Regular rate and rhythm ABDOMEN: Normal bowel sounds. Soft nontender, obese. No organomegaly appreciated. BACK: Inspection of the lumbar spine demonstrates normal curvatures. No lesions are noted in the lumbar spine region. Provocative testing of the facet joints bilaterally was negative. She was nontender over the left SI joint significant tenderness over the right. No myofascial tenderness or trigger points identifiable in the paraspinous musculature. Neurologically, straight leg raising is negative on the left past 90 and no changes noted Achilles stretch. Patient was not able to tolerate straight leg raise on the right. EXTREMITIES: The right lower extremity is significant for a small abrasion over her right posterior hip. There is swelling and generalized erythema over much of the thigh but predominantly over the abductor musculature. The patient has exquisite pain with any palpation or movement of the leg. She has difficulty with log rolling for examination. There are no open wounds noted. NEUROLOGICAL: Cranial nerves II through XII grossly intact. No gross sensory or motor deficits noted in the upper extremity. Sensation and motor strength in the left lower extremity are without deficit. She has a hyperalgesic response in the right thigh but within normal limits distal to the knee. She has adequate 5 out of 5 strength in dorsiflexion and plantar flexion as well as gastroc and anterior tibialis. However, she is unable to cooperate with motor strength testing over her quadriceps or hamstrings due to pain. No pathologic reflexes are noted in the lower extremities. Gait is not observed. Reflexes: patellar Reflex L [+2] R [+2] Achilles Reflex L [+]2 R [+2] Laboratory Laboratory Results (Last CBC): 04/25/17 06:52 Red Blood Count 2.97 L, Mean Corpuscular Volume 87.9, Mean Corpuscular Hemoglobin 29.0, Mean Corpuscular Hemoglobin Concent 33.0, Mean Platelet Volume 8.5, Neutrophils (%) (Auto) 90.9, Lymphocytes (%) (Auto) 3.4, Monocytes (%) ( Auto) 3.3, Eosinophils (%) (Auto) 0.9, Basophils (%) (Auto) 0.1, Neutrophils # ( Auto) 19.97 H, Lymphocytes # (Auto) 0.74 L, Monocytes # (Auto) 0.73 H, Eosinophils # (Auto) 0.19, Basophils # (Auto) 0.03 Imaging MRI Findings Patient: CESAR VILLATORO Address1: [address] [facility] [address] Med Rec: [id number] Address2: Acct ID: [id number] [facility] Zip: [place] [address] Date: 1980 Sex: F Room/Bed: [facility] Ref Phy: Devin Tyler SC: [email or web address] Att Phy: Aneta Rueda M.D. Report #: [id number] Sofi Phy: Devin Tyler Test: LEWO Admit Phy: Matias Morales D.O. Case Resolution Specialist: ELISEO Interpreting Phy: Rambo Xiao M.D. Diagnosis: DKA Ordering Phy: Ken Rodriguez MD Service Date: 04/23/17 Admit Date: 04/17/17 MNE: [email or web address] CONF: DICTATED BY: Rambo Xiao M.D.]] CC: Ken Rodriguez MD Romeo, Bruno Singh, Madhavi, M.D. Endcc: [~ rep ct add3]] R LOWER EXTREMITY WITHOUT CT DOSE: HISTORY: Mass ?femoral fracture ?worsening hematoma ?abscess TECHNIQUE: Multiaxial CT images of the right thigh were performed and reformatted in the sagittal and coronal plane without the use of contrast. A dose lowering technique was utilized adhering to the principles of ALARA. COMPARISON: Ultrasound 04/21/2017 FINDINGS: Generalized compression cellulitis about the upper thigh. This extends to the level of the right knee. Intramuscular collection/hematoma measuring 13 x 8 x 6 cm proximal to mid medial finding. Several small probable bubbles are noted within this structure. Mild generalized muscular edema throughout limited in terms of evaluation due to the absence of intravenous contrast enhancement. No well-defined acute bony abnormality. IMPRESSION: 1. Generalized subcutaneous fat cellulitis throughout the right thigh. 2. Intramuscular collection medial aspect upper right thigh measuring 13 x 8 x 6 cm.. 3. This contains several tiny air bubbles with several small reactive nodes in the right inguinal region. 4. This is in general similar compared to the dimension seen in the patient's prior ultrasound given differences in technique. 5. Although statistically suggestive of hematoma, given the presence of the minute air bubbles the possibility of a superimposed abscess is not excluded. 6. No acute bony abnormality. CT Findings Patient: CESAR VILLATORO Address1: [address] [facility] [address] Med Rec: [id number] Address2: Acct ID: [id number] [facility] Zip: [place] [address] Date: 1980 Sex: F Room/Bed: W456-2 Ref Phy: Devin Tyler SC: [email or web address] Att Phy: Aneta Rueda M.D. Report #: [id number] Sofi Phy: Devin Tyler Test: HIPWO Admit Phy: Matias Morales D.O. Case Resolution Specialist: ELISEO Interpreting Phy: Dc Perez MD Diagnosis: DKA Ordering Phy: Ken Rodriguez MD Service Date: 04/23/17 Admit Date: 04/17/17 MNE: [email or web address] CONF: DICTATED BY: Dc Perez M.D.]] CC: Ken Rodriguez MD Romeo, Bruno Singh, Madhavi, M.D. Endcc: [~ rep ct add3]] RIGHT HIP CT CT DOSE: 647.10 mGy.cm HISTORY: Right hip swelling. ?abscess ?worsening hematoma ?fracture TECHNIQUE: Multiaxial CT images of the . were performed and reformatted in the sagittal and coronal plane without the use of contrast. A dose lowering technique was utilized adhering to the principles of ALARA. COMPARISON: Right hip 04/18/2017. Abdomen and pelvis CT 04/21/2017. FINDINGS: Subcutaneous fat stranding/edema within the right hip. Partially visualized fluid collection within the proximal adductor muscles containing a few punctate foci of gas. This continues to measure approximately 7.3 cm in size. No right hip effusion identified. No fracture or dislocation within the right hip. No bony destruction to suggest osteomyelitis. Mild right external iliac lymphadenopathy is likely reactive. IMPRESSION: Redemonstration of the 7.3 cm intramuscular fluid collection within the proximal adductor muscles of the right lower extremity. This contains a few punctate foci of gas and therefore may represent an abscess. Radiology Findings Patient: CESAR VILLATORO Address1: [address] [facility] 3 Med Rec: [id number] Address2: Acct ID: [id number] [facility] Zip: [place] [address] Date: 1980 Sex: F Room/Bed: [facility] Ref Phy: Devin Tyler SC: [email or web address] Att Phy: Les Gomez MD Report #: [id number] Sofi Phy: Devin Tyler Test: VDLEB Admit Phy: Matias Morales DAlanOAlan Case Resolution Specialist: CHIP Interpreting Phy: Wilber Smith MD Diagnosis: DKA Ordering Phy: Poli Ruff MD Service Date: 04/21/17 Admit Date: 04/17/17 MNE: [email or web address] CONF: DICTATED BY: Wilber Smith MD]] CC: Les Gomez MD Rochon, Emile .MD Jayson Bruno Endcc: [~ rep ct add3]] BILATERAL LOWER EXTREMITY VENOUS DOPPLER CLINICAL HISTORY: Swollen painful right leg. COMPARISON STUDY: No previous studies for comparison. TECHNIQUE: Sonography of the deep venous system of the bilateral lower extremities was performed. Compression and augmentation were evaluated. FINDINGS: The bilateral common femoral, superficial femoral and popliteal veins were compressible. Augmentation was normal. Flow was shown within the deep calf vessels. Note is made of a 13.2 x 5.3 x 4 cm hypoechoic abnormality within the medial right thigh which may be intramuscular in location. This contains no color flow and suggest a large hematoma. IMPRESSION: 1. No evidence of deep venous thrombus within the bilateral lower extremities. 2. 13.2 x 5.3 x 4 cm hypoechoic abnormality within the proximal medial right thigh which favors a large intramuscular hematoma. 2 month sonographic follow up is recommended to exclude the unlikely possibility of an underlying mass. Other Findings Patient: CESAR VILLATORO Address1: [address] Rec: [id number] Address2: Acct ID: [id number] [facility] Zip: [place] [address] Date: 1980 Sex: F Room/Bed: W456-2 Ref Phy: Devin Tyler SC: [email or web address] Att Phy: Aneta Rueda M.D. Report #: [id number] Sofi Phy: Devin Tyler Test: HWO Admit Phy: Matias Morales D.O. Case Resolution Specialist: NANCY Interpreting Phy: Wilber Smith MD Diagnosis: DKA Ordering Phy: Cole Jones MD Service Date: 04/23/17 Admit Date: 04/17/17 MNE: PWRSCRIBE CONF: DICTATED BY: Wilber Smith MD]] CC: Cole Jones ., Devin Dempsey Madhavi, M.D. Endcc: [~ rep ct add3]] CT OF THE HEAD WITHOUT CONTRAST CLINICAL HISTORY: fell, head trauma COMPARISON STUDY: No previous studies for comparison. CT DOSE: 614.27 mGy.cm TECHNIQUE: Helical axial images of the head were obtained without IV contrast. Automated exposure control was utilized for the study. A dose lowering technique was utilized adhering to the principles of ALARA. FINDINGS: No acute intracranial hemorrhage, midline shift or mass effect is present. Ventricular system is unremarkable. Basilar cisterns are patent. There are no extra-axial collections. Garzon-white differentiation is maintained. There is a small right parietal scalp contusion. There is no calvarial fracture. White matter hypodensities are noted as well as mild volume loss. IMPRESSION: 1. No acute intracranial findings. 2. Scattered white matter hypodensities. These are nonspecific but statistically reflect small vessel disease which is greater than expected for age. Mild atrophy, greater than expected for age. 3. Small right parietal scalp contusion. No calvarial fracture. Past Records Previous Records: personally reviewed by me [place] Drug Monitoring Program Search Results: patient reviewed within database, no issues identified Drug Monitoring Findings: 1 pharmacy one prescriber noted for alprazolam Opioid Risk Assessment Risk assessment performed, minimal risk identified Assessment 1. Acute pain secondary to right lower extremity hematoma with possible abscess 2. Recent falls of unknown etiology 3. Lumbago 4. Fibromyalgia 5. Anxiety 6. Depression 7. Diabetes with poor compliance Recommendations 1. Recommend increasing her Effexor to 150 mg by mouth daily should further augment descending regulation of pain 2. Recommend conversion from cyclobenzaprine to baclofen 10 mg by mouth 3 times a day when necessary pain or spasm to minimize risk of serotonin syndrome with increased dose of Effexor 3. Recommend discontinuation of oxycodone and conversion to Percocet 7.5/325 mg 1 by mouth every 4 when necessary 4. Recommend plain film imaging of lumbar spine to rule out any fracture or other pathology to account for falling. May consider MRI of the lumbar spine in the future 5. Recommend consideration for SCDs or other non-chemical prophylaxis for DVT prevention. 6. Will discuss my recommendations with Dr. Rueda
[2017-04-25] MEDS: BACLOFEN 10 MG TAB PO PRN ×2 (10:49→15:58)
[2017-04-25] MEDS: OXYCODONE/ACETAMINOPHEN 7.5-325 TAB PO PRN ×2 (10:51→15:59)
--- NOTE | 2017-04-25 11:40 | DIAGNOSTIC IMAGING REPORT ---
ULTRASOUND BILATERAL LOWER EXTREMITY VENOUS CLINICAL HISTORY: Lower extremity edema. COMPARISON STUDY: Bilateral lower extremity venous ultrasound dated 04/21/2017. TECHNIQUE: Real-time, grayscale, and color Doppler sonography of the deep veins of the right and left lower extremity was performed from the inguinal crease to the calf. Compression and augmentation were utilized. FINDINGS: There is no sonographic evidence of deep venous thrombosis identified in the right or left lower extremity. The common femoral, superficial femoral, and popliteal veins are patent and normally compressible bilaterally. The greater saphenous vein and the profunda femoris vein at the junction with the common femoral vein are clear in both legs. The visualized calf veins are patent bilaterally. IMPRESSION: There is no sonographic evidence of deep venous thrombosis identified in the right or left lower extremity. Electronically signed by: Lewis Turner M.D. 04/25/2017 11:38 AM Dictated Date/Time: 04/25/2017 11:37 AM
--- NOTE | 2017-04-25 12:28 | DIAGNOSTIC IMAGING REPORT ---
LUMBAR SPINE 5 VIEWS CLINICAL HISTORY: Fall with low back pain. FINDINGS: Five views of the lumbar spine are correlated with abdominal CT dated 04/21/2017. The skeletal structures appear well mineralized. There is no radiographic evidence of fracture or malalignment. Vertebral body height and alignment are maintained throughout the lumbar spine. There is straightening of the lumbar lordosis. Small anterior osteophytes are seen throughout. There are also marginal osteophytes. The transverse and spinous processes are intact. Minimal lumbar levocurvature is centered at L2-L3. There is advanced disc space narrowing with associated endplate sclerosis seen at L2-L3. Mild disc space narrowing is seen at L3-L4. The remaining disc spaces are preserved. The visualized bony pelvis appears intact. There is a nonobstructed abdominal bowel gas pattern, noting moderate to severe constipation. IMPRESSION: 1. No acute bony abnormality is seen involving the lumbar spine. 2. Spondylotic change as above, greatest at L2-L3. 3. Moderate to severe constipation. Dictated: 04/25/2017 12:09 PM Transcribed: 04/25/2017 12:28 PM [facility] Electronically signed by: Lewis Turner M.D. 04/25/2017 12:45 PM Dictated Date/Time: 04/25/2017 12:09 PM
[2017-04-25 14:38] VITALS: BP 119/75; PULSE 98; TEMP 36.7; O2SAT 99
[2017-04-26] MEDS ORDERED: VANCOMYCIN TROUGH ONE ×2 (05:30→06:00)
[2017-04-26] MEDS ORDERED: VENLAFAXINE HCL XR 150 MG CAPXR PO SCH (08:00)
== END 2017-04-25 16:30 | disposition short-term general hospital (02) | DRG 638 ==
LOC: C.MSICU 04-17 00:24 → ENRESERV 04-17 18:55 → C.2T 04-17 19:28 → ENRESERV 04-20 11:43 → C.MS4W 04-20 13:01
PROVIDERS: ADMIT Anesthesiology Critical Care Medicine; ATTEND Family Medicine
DX: E11.10 Type 2 diabetes mellitus with ketoacidosis without coma (principal); E46 Unspecified protein-calorie malnutrition; N39.0 Urinary tract infection, site not specified; E87.6 Hypokalemia; S70.11XA Contusion of right thigh, initial encounter; K59.00 Constipation, unspecified; E83.39 Other disorders of phosphorus metabolism; E83.42 Hypomagnesemia; K21.9 Gastro-esophageal reflux disease without esophagitis; F41.9 Anxiety disorder, unspecified; F32.9 Major depressive disorder, single episode, unspecified; A49.8 Other bacterial infections of unspecified site; D72.829 Elevated white blood cell count, unspecified; D64.9 Anemia, unspecified; I10 Essential (primary) hypertension; Z91.19 Patient's noncompliance with other medical treatment and regimen; E03.9 Hypothyroidism, unspecified; Z87.01 Personal history of pneumonia (recurrent); Z83.3 Family history of diabetes mellitus; Z82.49 Family history of ischemic heart disease and other diseases of the circulatory system; Z87.891 Personal history of nicotine dependence; W06.XXXA Fall from bed, initial encounter